=== PATIENT | male | born 1955 | race Caucasian/White ===

== ENCOUNTER 2019-04-11 10:05 | Observation (INO) | payer OTHER ==
[~2019-04-11] VITALS: Ht 177.8 cm; Wt 87.4 kg
[2019-04-11] MEDS ORDERED: LEVETIRACETAM 1000 MG (PMX) 100 ML IVPB STA (10:18)
[2019-04-11] MEDS ORDERED: ONDANSETRON 4 MG INJ IV STA (10:58)
[2019-04-11] MEDS ORDERED: LACTULOSE 30ML CUP PO ONE (11:30)
[2019-04-11] MEDS ORDERED: DEXAMETHASONE 10 MG/ML 1 ML INJ IM ONE (11:30)
[2019-04-11] MEDS ORDERED: TRAM50TA2 PO (11:33)
[2019-04-11] MEDS ORDERED: SITA1TAB5 ORAL (11:33)
[2019-04-11] MEDS ORDERED: FOLI-49 ORAL (11:33)
[2019-04-11] MEDS ORDERED: LACT10SO5 PO (11:33)
[2019-04-11] MEDS ORDERED: FURO40TA4 ORAL (11:33)
[2019-04-11] MEDS ORDERED: SPIR100T4 ORAL (11:33)
--- NOTE | 2019-04-11 11:36 | ERD ---
ER Documentation Chief Complaint Chief Complaint SEIZURE. NO HISTORY. LIVER CIRRHOSIS HPI This is a 64-year-old male with a history of hypertension and liver cirrhosis who presents to the emergency room for evaluation of seizures. A detailed history is unobtainable from the patient given his altered mental status and postictal state. History is obtained from EMS and the patient's was at bedside who states that this patient did suffer a seizure that lasted approximately 20 seconds. The patient has not had a fever at home, has not had any nausea or vomiting prior to the seizure and was not complaining of any headaches. Further history is unobtainable. ROS All systems reviewed and are negative except as per history of present illness. PMhx/Soc History of Surgery: No Anesthesia Reaction: No Hx Neurological Disorder: No Hx Respiratory Disorders: No Hx Cardiac Disorders: Yes (htn) Hx Psychiatric Problems: No Hx Miscellaneous Medical Probl: Yes (liver cirrhosis) Hx Alcohol Use: No (unknown) Hx Substance Use: No (unknown) Hx Tobacco Use: No (unknown) Smoking Status: Unknown if ever smoked Physical Exam Vitals Vital Signs Date Temp Pulse Resp B/P (MAP) Pulse Ox O2 O2 Flow FiO2 Time Delivery Rate 04/11/19 75 14 111/62 96 Nasal 4.0 11:05 (78) Cannula 04/11/19 Nasal 2 10:35 Cannula 04/11/19 97.2 94 18 124/67 96 10:12 (86) Physical Exam INITIAL VITAL SIGNS: Reviewed by me GENERAL: The patient is pale appearing elderly male, postictal HEENT: Small superficial laceration on the upper inner lip, and abrasion on the right side of the tongue, pupils equal, round, and reactive to light. EOMI. There is no scleral icterus. NECK: C-spine is soft and supple, there is no meningismus. There is no cervical lymphadenopathy. LUNGS: Clear to auscultation bilaterally. There are no rales, wheezes or rhonchi. HEART: Regular rate and rhythm, no murmurs, clicks, rubs or gallops. ABDOMEN: Soft, non-tender, non-distended. There are bowel sounds in all four quadrants. No rebound or guarding. EXTREMITIES: There is no peripheral cyanosis or edema. No focal swelling or erythema. NEUROLOGICAL: Post ictal, the patient moves all four extremities with 5/5 strength. Cranial nerves II - XII are intact. Normal gait. Alert and oriented to person only SKIN: Telangiectasias on skin, there is no apparent rash or petechiae. HEME/LYMPHATIC: There is no evidence of excessive bruising or lymphedema. PSYCHIATRIC: The patient does not appear anxious or depressed. Result Diagram: 04/11/19 1021 04/11/19 1021 Results 24 hrs Laboratory Tests Test 04/11/19 10:18 04/11/19 10:21 04/11/19 10:22 POC Venous Lactate 10.0 mmol/L White Blood Count 5.0 10^3/ul Red Blood Count 4.15 10^6/ul Hemoglobin 13.5 g/dl Hematocrit 40.8 % Mean Corpuscular Volume 98.3 fl Mean Corpuscular Hemoglobin 32.5 pg Mean Corpuscular 33.1 g/dl Hemoglobin Concent Red Cell Distribution Width 13.5 % Platelet Count 58 10^3/UL Mean Platelet Volume 13.1 fl Immature Granulocytes % 0.600 % Neutrophils % 64.9 % Lymphocytes % 21.6 % Monocytes % 11.5 % Eosinophils % 1.0 % Basophils % 0.4 % Nucleated Red Blood Cells % 0.0 /100WBC Immature Granulocytes # 0.030 10^3/ul Neutrophils # 3.2 10^3/ul Lymphocytes # 1.1 10^3/ul Monocytes # 0.6 10^3/ul Eosinophils # 0.1 10^3/ul Basophils # 0.0 10^3/ul Nucleated Red Blood Cells # 0.0 10^3/ul Prothrombin Time 14.8 Sec Prothrombin Time Ratio 1.2 INR International Normalized Ratio 1.15 Activated Partial Thromboplast 35.2 Sec Time Sodium Level 142 mmol/L Potassium Level 3.6 mmol/L Chloride Level 103 mmol/L Carbon Dioxide Level 17 mmol/L Anion Gap 22 Blood Urea Nitrogen 24 mg/dl Creatinine 1.14 mg/dl Est Glomerular Filtrat Rate mL/min > 60 mL/min Glucose Level 138 mg/dl Calcium Level 8.3 mg/dl Total Bilirubin 1.3 mg/dl Direct Bilirubin 0.00 mg/dl Indirect Bilirubin 1.3 mg/dl Aspartate Amino Transf (AST/SGOT) 53 IU/L Alanine 24 IU/L Aminotransferase (ALT/SGPT) Alkaline Phosphatase 126 IU/L Troponin I < 0.012 ng/ml Total Protein 8.4 g/dl Albumin 3.5 g/dl Globulin 4.90 g/dl Albumin/Globulin Ratio 0.71 Salicylates Level < 1.0 mg/dl Acetaminophen Level < 10.0 ug/ml Ethyl Alcohol Level < 10.0 mg/dl Magnesium Level 2.1 mg/dl Ammonia 280 umol/l Current Medications Medications Dose Sig/Karel Start Time Status Last (Trade) Ordered Route PRN Stop Time Admin Dose Reason Admin 100 ml @ ONCE STAT 04/11/19 DC 04/11/19 Levetiracetam 400 mls/hr IVPB 10:18 10:33 04/11/19 10:32 Ondansetron 4 mg ONCE STAT 04/11/19 DC 04/11/19 HCl (Zofran IV 10:58 11:05 Inj) 04/11/19 10:59 10 mg ONCE ONCE 04/11/19 Dexamethasone IM 11:30 (Decadron) 04/11/19 11:31 Procedures/MDM CT brain without: 2.8 cm noncalcified solid mass in the anteromedial base left frontal lobe with surrounding white matter edema. This most likely represents a meningioma, however, other etiologies cannot be ruled out. Correlation with pre and post contrast MRI of the brain is strongly recommended for more definitive diagnosis. Chest X-ray 1V Interpreted by me: Soft Tissue: No acute abnormalities Bones: No acute abnormalities Mediastinum/Cardiac Silhouette/Lungs: [No acute abnormalities] EKG: Rate/Rhythm: [Normal Sinus Rhythm] QRS, ST, T-waves: [Nonspecific ST and T wave abnormalities in the anterior leads, no ST elevation, prolonged QT ] Impression: [Nonspecific ST and T wave abnormalities in the anterior leads, no ST elevation, prolonged QT ] This 64-year-old male presents to the ER for evaluation of altered mental status. The patient does have a history of liver cirrhosis and according to EMS he did have a seizure. There is no history of prior seizures in this patient and according to the he is not on any antiseizure medications. On my exam the patient does appear postictal and does have multiple abrasions on the upper lip from where he bit his tongue likely from a seizure. Given the fact that it was the patient's first seizure I did obtain a CT of the brain and CT does demonstrate what appears to be a mass in the left frontal lobe with mild vasogenic edema. The patient also has an elevated ammonia level of greater than 280. The patient is protecting his airway, he is becoming more responsive and is returning more to his baseline. Given this patient's age, new diagnosis of intracranial mass with edema and elevated ammonia level he will need to be admitted and is not stable for transfer. The patient will be admitted to Dr. Ragland. I have reviewed the case with him and he states he will contact neurosurgery. The patient will be placed on the telemetry floor and was given Decadron in the ER, and was also given Keppra for seizure prophylaxis, and lactulose. Critical Care: Excluding all billable procedures Time: 59 minutes Treatments/Evaluations: Close monitoring and treatment of unstable vital signs, cardiorespiratory, and neurologic status, while maintaining tight balance of fluid, respiratory, and cardiac interventions. Departure Diagnosis: Primary Impression: Intracerebral mass Additional Impressions: Vasogenic edema Hepatic encephalopathy Hyperammonemia Seizure disorder Condition: Serious EARL HART DO April 11, 2019 11:36
[2019-04-11] MEDS ORDERED: ACETAMINOPHEN 325 MG TAB PO PRN ×2 (12:00→14:30)
[2019-04-11] MEDS ORDERED: ONDANSETRON 4 MG INJ IV PRN ×2 (12:00→14:30)
[2019-04-11 14:00] VITALS: Ht 177.8 cm; Wt 87.4 kg
[2019-04-11 14:20] VITALS: BP 108/61; PULSE 65; RESP 18
[2019-04-11] MEDS ORDERED: ZOLPIDEM 5 MG TAB PO PRN (14:30)
[2019-04-11] MEDS ORDERED: traMADol 50 MG TAB PO PRN (15:00)
[2019-04-11] MEDS: DEXAMETHASONE 4 MG/ML 1 ML INJ IV SCH ×2 (15:54→17:10)
[2019-04-11] MEDS: SPIRONOLACTONE 50 MG TAB PO SCH (15:54)
[2019-04-11] MEDS: LACTULOSE 30ML CUP PO SCH ×2 (15:55→17:10)
[2019-04-11] MEDS: FUROSEMIDE 40 MG TAB PO SCH (15:55)
[2019-04-11 15:58] VITALS: BP 107/59; PULSE 70; RESP 18
[2019-04-11 16:16] VITALS: PULSE 69
[2019-04-11] MEDS: PANTOPRAZOLE 40 MG INJ IV SCH (17:11)
[2019-04-11] MEDS ORDERED: DEXAMETHASONE 4 MG/ML 1 ML INJ IV SCH (18:00)
--- NOTE | 2019-04-11 19:15 | HP ---
DATE OF ADMISSION: 04/11/2019 REASON FOR VISIT: New onset seizure. HISTORY OF PRESENT ILLNESS: This is a 64-year-old male with a history of hypertension, liver cirrhos is, and type 2 diabetes mellitus who presented to the emergency room with complaint new onset tonic c lonic seizure. The patient was in usual state of health when the noted a seizure activity about 9:30 in the morning. There was blood noted around the mouth. The patient had no further seizures i n the emergency room. He had no history of alcohol abuse and was diagnosed with cirrhosis about 4 ye ars prior to admission due to unknown infection. Platelet count was low at 58,000. Serum ammonia wa s elevated at 280. CAT scan of brain showed a 2.8 cm noncalcified mass in the anteromedial base left frontal lobe with surrounding white matter or edema. This most likely represents a meningioma. PAST MEDICAL HISTORY: 1. Hypertension. 2. Type 2 diabetes mellitus. 3. Iatrogenic cirrhosis of the liver. MEDICATIONS PRIOR TO ADMISSION: 1. Spironolactone 200 mg daily. 2. Tramadol 50 mg every 8 hours as needed. 3. Lasix 80 mg daily. 4. Lactulose 10 gram b.i.d. 5. Janumet one tablet daily. 6. Folic acid 1 tablet daily. SOCIAL HISTORY: The patient is Romansh. He lives at home with his . He denies tobacco or alco hol use. PHYSICAL EXAMINATION: GENERAL: Well-developed, well-nourished male who is in no apparent distress. He denies any headache . VITAL SIGNS: Stable. He is afebrile. HEENT: Extraocular muscles intact. Pupils are equal and reactive to light bilaterally. Sclerae are anicteric. Oropharynx is moist. NECK: Supple, no JVD, no carotid bruits. LUNGS: Clear to auscultation bilaterally. CARDIAC: Regular rate and rhythm. No murmurs or gallops. ABDOMEN: Soft, mildly distended, obese. Normoactive bowel sounds. EXTREMITIES: No clubbing, cyanosis, or edema. NEUROLOGICAL: Grossly nonfocal. LABORATORY DATA: BMP is within normal limits. Initial lactate was 10 and repeat lactate was 2.2. A lbumin is 3.5. White blood cell count 5000, hemoglobin 13.5, and platelet count 58,000 as previously noted. ASSESSMENT: 1. A 64-year-old male with new onset tonic-clonic seizure. 2. Noncalcified frontal lobe mass most consistent with meningioma. 3. Hypertension. 4. History of iatrogenic cirrhosis. 5. Type 2 diabetes mellitus. PLAN: 1. Place in tele observation. 2. IV Keppra. 3. IV Decadron. 4. MRI of the brain with and without contrast with stereotypical protocol. 5. Seizure precautions. 6. Neurosurgical and Neurology consultations were requested. 7. Increase lactulose to 20 grams 4 times daily. Dictated By: PHUONG MCCALL/NTS Conf#: [id number] DID#: [id number] CC: DANNI PIERCE MD; LOPEZ ABRAHAM;*End*
[2019-04-11 20:00] VITALS: PULSE 74
[2019-04-11 20:14] VITALS: BP 124/70; PULSE 77; RESP 20
[2019-04-11] MEDS: LEVETIRACETAM 1000 MG (PMX) 100 ML IVPB SCH (20:59)
[2019-04-12] VITALS (8 sets, daily range): BP systolic 92–102; BP diastolic 50–60; PULSE 58–79; RESP 18–20
[2019-04-12] MEDS: DEXAMETHASONE 4 MG/ML 1 ML INJ IV SCH ×3 (00:38→13:28)
[2019-04-12] MEDS: LACTULOSE 30ML CUP PO SCH ×3 (00:38→13:28)
[2019-04-12] MEDS: FUROSEMIDE 40 MG TAB PO SCH (05:56)
[2019-04-12] MEDS: PANTOPRAZOLE 40 MG INJ IV SCH (06:01)
[2019-04-12] MEDS: SPIRONOLACTONE 50 MG TAB PO SCH (06:02)
--- NOTE | 2019-04-12 07:21 | CONS ---
Assessment/Plan Assessment/Plan Hospital Course 64 M c/ cirrhosis and other comorbidities, who presents for evaluation following a seizure, his reported first of life.. Ammonia 280 on presentation, a possible contributor.. Head CT showed a frontal mass w/ mass some effect...which is an additional likely contributor.. P: Neurosurgery follow up MRI brain w/ and w/o contrast for further characterization Agree w/ Keppra for seizure management; decrease to 500mg bid.. PT eval Other management per primary Will follow Consultation Date/Type/Reason Admit Date/Time April 11, 2019 at 11:58 Type of Consult Neurology Reason for Consultation seizure Requesting Provider: PHUONG GARCIA MD Date/Time of Note DATE: 04/12/19 TIME: 07:21 Hx of Present Illness Patient is a limited historian. He notes dizziness with standing...bu otherwise feels well. It is otherwise noted: This is a 64-year-old male with a history of hypertension, liver cirrhosis, and type 2 diabetes mellitus who presented to the emergency room with complaint new onset tonic clonic seizure. The patient was in usual state of health when the noted a seizure activity about 9:30 in the morning. There was blood noted around the mouth. The patient had no further seizures in the emergency room. He had no history of alcohol abuse and was diagnosed with cirrhosis about 4 years prior to admission due to unknown infection. Platelet count was low at 58,000. Serum ammonia was elevated at 280. CAT scan of brain showed a 2.8 cm noncalcified mass in the anteromedial base left frontal lobe with surrounding white matter or edema. This most likely represents a meningioma. ow neg Exam/Review of Systems Exam Vitals Vital Signs Date Temp Pulse Resp B/P (MAP) Pulse Ox O2 O2 Flow FiO2 Time Delivery Rate 04/12/19 97.5 68 20 92/50 (64) 94 05:55 04/11/19 Nasal 2.0 20:00 Cannula Intake and Output 04/11/19 04/11/19 04/12/19 1515:00 23:00 07:00 IntakeIntake Total 640 ml BalanceBalance 640 ml Exam PE: Gen Appearance: No Apparent Distress HEENT: Normocephalic Cardiovascular: Regular rate Lungs: Clear bilaterally Abdomen: Soft Extremities: Dry NE: The patient was alert and oriented. Language was normal. Fund of knowledge was normal. Pupils were equal and reactive to light. There was no afferent pupillary defect. Visual cherry were normal. Funduscopic examination was limited. Extra-ocular movements were full. Ptosis was absent. There was no nystagmus. Facial sensation was normal. Face was symmetric with normal strength. Hearing was intact. Palate movements were normal. Neck strength was normal. There was normal tongue bulk and speed of movement. Tone was normal. Muscle bulk was normal. I did not see fasciculations. Arms and legs were strong. Vibration sensation was normal. Temperature and pinprick sensation was normal. Rapid alternating movements were normal. There was no dysmetria. There was no intention tremor. Gait was deferred due to bedrest. Arm and leg reflexes were 2+ and symmetric. Cotton's sign was absent. Plantar responses were flexor. Results Result Diagram: 04/12/19 0555 04/11/19 1021 Results 24hrs Laboratory Tests Test 04/11/19 10:18 04/11/19 10:21 04/11/19 10:22 04/11/19 13:41 POC Venous Lactate 10.0 *H 2.2 *H White Blood Count 5.0 Red Blood Count 4.15 L Hemoglobin 13.5 L Hematocrit 40.8 L Mean Corpuscular 98.3 Volume Mean Corpuscular 32.5 Hemoglobin Mean Corpuscular 33.1 Hemoglobin Concent Red Cell 13.5 Distribution Width Platelet Count 58 L Mean Platelet Volume 13.1 H Immature 0.600 H Granulocytes % Neutrophils % 64.9 Lymphocytes % 21.6 Monocytes % 11.5 H Eosinophils % 1.0 Basophils % 0.4 Nucleated Red Blood 0.0 Cells % Immature 0.030 Granulocytes # Neutrophils # 3.2 Lymphocytes # 1.1 Monocytes # 0.6 Eosinophils # 0.1 Basophils # 0.0 Nucleated Red Blood 0.0 Cells # Prothrombin Time 14.8 Prothrombin Time 1.2 Ratio INR International 1.15 Normalized Ratio Activated 35.2 H Partial Thromboplast Time Sodium Level 142 Potassium Level 3.6 Chloride Level 103 Carbon Dioxide Level 17 L Anion Gap 22 H Blood Urea Nitrogen 24 H Creatinine 1.14 Est Glomerular > 60 Filtrat Rate mL/min Glucose Level 138 Calcium Level 8.3 L Total Bilirubin 1.3 Direct Bilirubin 0.00 Indirect Bilirubin 1.3 H Aspartate Amino 53 H Transf (AST/SGOT) Alanine 24 Aminotransferase (AL T/SGPT) Alkaline Phosphatase 126 H Troponin I < 0.012 Total Protein 8.4 H Albumin 3.5 Globulin 4.90 H Albumin/Globulin 0.71 Ratio Salicylates Level < 1.0 L Acetaminophen Level < 10.0 L Ethyl Alcohol Level < 10.0 H Magnesium Level 2.1 Ammonia 280 H Test 04/11/19 15:55 04/11/19 19:29 04/12/19 05:55 Lactic Acid Level 3.3 *H 4.6 *H White Blood Count 7.5 # Red Blood Count 3.58 L Hemoglobin 11.8 L Hematocrit 33.7 L Mean Corpuscular 94.1 Volume Mean Corpuscular 33.0 Hemoglobin Mean Corpuscular 35.0 Hemoglobin Concent Red Cell 12.6 Distribution Width Platelet Count 55 L Mean Platelet Volume 12.8 H Immature 0.500 H Granulocytes % Neutrophils % 90.6 H Lymphocytes % 6.1 L Monocytes % 2.7 Eosinophils % 0.0 Basophils % 0.1 Nucleated Red Blood 0.0 Cells % Immature 0.040 H Granulocytes # Neutrophils # 6.8 Lymphocytes # 0.5 L Monocytes # 0.2 L Eosinophils # 0.0 Basophils # 0.0 Nucleated Red Blood 0.0 Cells # Medications Medication Current Medications Levetiracetam 100 ml @ 400 mls/hr Q12 IVPB Last administered on 04/11/19at 20:59; Admin Dose 400 MLS/HR; Start 04/11/19 at 20:00 Pantoprazole (Protonix Iv) 40 mg BID@06,18 IV Last administered on 04/12/19 06:01; Admin Dose 40 MG; Start 04/11/19 at 18:00 Lactulose (Enulose) 20 gm Q6 PO Last administered on 04/12/19 06:02; Admin Dose 20 GM; Start 04/11/19 at 14:30 Acetaminophen (Tylenol Tab) 650 mg Q6H PRN PO MILD PAIN(1-3)OR ELEVATED TEMP; Start 04/11/19 at 14:30 Dexamethasone (Decadron) 4 mg Q6 IV Last administered on 04/12/19 06:02; Admin Dose 4 MG; Start 04/11/19 at 14:30 Zolpidem Tartrate (Ambien) 5 mg HS MAY REPEAT X 1 PRN PO INSOMNIA; Start 04/11/19 at 14:30 Ondansetron HCl (Zofran Inj) 4 mg Q4H PRN IV NAUSEA AND/OR VOMITING; Start 04/11/19 at 14:30 Furosemide (Lasix) 80 mg DAILY@0600 PO Last administered on 04/11/19at 15:55; Admin Dose 80 MG; Start 04/11/19 at 15:00 Spironolactone (Aldactone) 200 mg DAILY@0600 PO Last administered on 04/12/19at 06:02; Admin Dose 200 MG; Start 04/11/19 at 15:00 Tramadol HCl (Ultram) 50 mg Q8H PRN PO PAIN LEVEL 4-7; Start 04/11/19 at 15:00 Past Medical History reviewed Home Meds Active Scripts Levetiracetam* (Keppra*) 1,000 Mg Tablet, 1000 MG PO BID for 30 Days, TAB 3 Refills Prov:PHUONG GARCIA MD 04/12/19 Pantoprazole* (Protonix*) 40 Mg Tablet.dr, 40 MG PO DAILY for 30 Days, TAB Prov:PHUONG GARCIA MD 04/12/19 Dexamethasone* (Dexamethasone*) 4 Mg Tablet, 4 MG PO Q8 for 15 Days, TAB 4 mg every 8 hours x3 days then every 12 hours x3 days then 2 mg every 8 hours x3 days then 2 mg every 12 hours x3 days then 2 mg daily x3 days. Prov:PHUONG GARCIA MD 04/12/19 Lactulose* (Lactulose*) 20 Gm/30 Ml Solution, 20 GM PO TID for 30 Days Prov:PHUONG GARCIA MD 04/12/19 Reported Medications Furosemide* (Furosemide*) 40 Mg Tablet, 80 MG ORAL DAILY 04/11/19 Tramadol HCl (Tramadol HCl) 50 Mg Tablet, 50 MG PO Q8H PRN for PAIN LEVEL 4-7, #120 TAB 04/11/19 Sitagliptin Phos/Metformin HCl (Janumet 50-1,000 mg Tablet) 1 Each Tablet, 1 TAB ORAL DAILY 04/11/19 Spironolactone* (Spironolactone*) 100 Mg Tablet, 200 TAB ORAL DAILY 04/11/19 Folic Acid* (Folic Acid*) 1 Mg Tablet, 1 TAB ORAL DAILY 04/11/19 Discontinued Reported Medications Lactulose* (Lactulose*) 10 Gm/15 Ml Solution, 10 GM PO BID, ML 04/11/19 Medications Current Medications Levetiracetam 100 ml @ 400 mls/hr Q12 IVPB Last administered on 04/11/19at 20:59; Admin Dose 400 MLS/HR; Start 04/11/19 at 20:00 Pantoprazole (Protonix Iv) 40 mg BID@06,18 IV Last administered on 04/12/19 06:01; Admin Dose 40 MG; Start 04/11/19 at 18:00 Lactulose (Enulose) 20 gm Q6 PO Last administered on 04/12/19 06:02; Admin Dose 20 GM; Start 04/11/19 at 14:30 Acetaminophen (Tylenol Tab) 650 mg Q6H PRN PO MILD PAIN(1-3)OR ELEVATED TEMP; Start 04/11/19 at 14:30 Dexamethasone (Decadron) 4 mg Q6 IV Last administered on 04/12/19 06:02; Admin Dose 4 MG; Start 04/11/19 at 14:30 Zolpidem Tartrate (Ambien) 5 mg HS MAY REPEAT X 1 PRN PO INSOMNIA; Start 04/11/19 at 14:30 Ondansetron HCl (Zofran Inj) 4 mg Q4H PRN IV NAUSEA AND/OR VOMITING; Start 04/11/19 at 14:30 Furosemide (Lasix) 80 mg DAILY@0600 PO Last administered on 04/11/19at 15:55; Admin Dose 80 MG; Start 04/11/19 at 15:00 Spironolactone (Aldactone) 200 mg DAILY@0600 PO Last administered on 04/12/19at 06:02; Admin Dose 200 MG; Start 04/11/19 at 15:00 Tramadol HCl (Ultram) 50 mg Q8H PRN PO PAIN LEVEL 4-7; Start 04/11/19 at 15:00 Allergies: Coded Allergies: No Known Allergy (Unverified , 04/11/19) Social History Smoking Status: Never smoker LOPEZ ABRAHAM April 12, 2019 07:21
--- NOTE | 2019-04-12 07:34 | EEG ---
EEG NOTE Report Details DATE OF TEST: 04/12/19 HISTORY: The patient is a 64-year-old M who presents following a generalized convulsion. This EEG is requested to evaluate for an epileptic disorder. SEDATION: None. CONDITIONS OF RECORDING: This EEG was recorded digitally on the [email or web address] machine, using the International 10-20 System of electrodes plus anterior temporals and [place]. STATES SAMPLED: Lethargic. FINDINGS: The background is continuous and symmetric...predominated by polymorphic theta activity. During wakefulness, a well-formed posterior dominant rhythm is absent. The normal [id number] frequency-amplitude gradient was absent. Photic stimulation does not elicit any definite driving responses or epile ptiform discharges. Hyperventilation was not performed. The patient became drowsy but did not pass into sleep. No asymmetries, focal abnormalities or epileptiform discharges were seen. IMPRESSION: Abnormal electroencephalogram due to: diffuse slowing. COMMENT: The slowing of the background indicates diffuse cortical dysfunction of nonspecific etiology. LOPEZ ABRAHAM April 12, 2019 07:34
[2019-04-12] MEDS: LEVETIRACETAM 1000 MG (PMX) 100 ML IVPB SCH (09:05)
[2019-04-12] MEDS ORDERED: DEXA4TAB PO (09:27)
[2019-04-12] MEDS ORDERED: PANT40TA3 PO (09:27)
[2019-04-12] MEDS ORDERED: LACT20SO2 PO (09:27)
[2019-04-12] MEDS ORDERED: LEVE100018 PO (09:30)
--- NOTE | 2019-04-12 09:31 | PDOCDIS ---
Discharge Instructions CONDITION [id number] Patient Condition: [id number] Good HOME CARE INSTRUCTIONS: [id number] Diet Instructions: [id number] Activity Restrictions: [id number] Slowly Increase Activity FOLLOW UP/APPOINTMENTS Follow-up Plan pcp [address] Canela 3-[address] Caceres 2 weeks PHUONG GARCIA MD April 12, 2019 09:31
[2019-04-12] MEDS ORDERED: oxyCODONE (CR) 10 MG TAB [oxyCONTIN] PO ONE (11:00)
--- NOTE | 2019-04-12 11:56 | RADRPT ---
Vent Rate: 92 bpm RR Interval: 0 msec AK Interval: 186 msec QRS Duration: 100 msec QT Interval: 410 msec QTC Interval: 507 msec P-R-T [place]: 46 - -31 - 21 degrees Normal sinus rhythm Left axis deviation Moderate voltage criteria for LVH, may be normal variant Nonspecific ST and T wave abnormality Prolonged QT Abnormal ECG Electronically Signed By: *[facility]
--- NOTE | 2019-04-12 17:08 | DS ---
DATE OF ADMISSION: 04/11/2019 DATE OF DISCHARGE: 04/12/2019 DISCHARGE DIAGNOSES: 1. A 64-year-old male with seizure disorder. 2. 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 3. Hypertension. 4. History of idiopathic cirrhosis. 5. Thrombocytopenia. 6. Type 2 diabetes mellitus. PROCEDURES DURING HOSPITALIZATION: CAT scan of brain, MRI of brain and EEG. HOSPITAL COURSE: A 64-year-old male with history of hypertension, idiopathic liver cirrhosis and typ e 2 diabetes mellitus, who presented to the emergency room with new onset tonic-clonic seizure. The patient denies any headache. There was no focal numbness or weakness. CAT scan of the brain showed a noncalcified 2.8 cm solid mass in the anterior medial base of the left frontal lobe with surroundin g white matter edema. According to his daughter, they knew about the mass about 1 year prior to admi ssion. The patient was seen in consultation by neurosurgeon, Dr. Canela and neurologist, Dr. Caceres. MRI of t he brain with and without contrast with stereotypical protocol was ordered. The study showed a left frontal convexity extraaxial mass consistent with meningioma and associated with mass effect and vaso genic edema. The patient remained asymptomatic during that hospitalization. IV Keppra was initiated . The patient denies any history of heavy alcohol abuse in the past. He is in stable condition for discharge. Dr. Canela and I had a long discussion with his daughter. He will be followed up by PCP, neurology and neurosurgery as outpatient. Physical exam was unremarkable at the time of discharge. MEDICATIONS ON DISCHARGE: Included the followin. Aldactone 25 mg p.o. daily. 2. Lasix 80 mg p.o. daily. 3. Keppra 1000 mg p.o. b.i.d. 4. Tramadol 50 mg every 8 hours as needed. 5. Lactulose 20 grams p.o. t.i.d. 6. Protonix 40 mg p.o. daily. 7. Decadron 4 mg p.o. every 8 hours with taper. 8. Janumet one tablet daily. 9. Folic acid 1 mg daily. FOLLOWUP: 1. Follow up with PCP in 1 week. 2. Follow up with Dr. Caceres in 2 weeks. 3. Follow up with Dr. Ej Canela in 3 to 4 weeks. Dictated By: PHUONG MCCALL/RC Conf#: [id number] DID#: [id number] CC: EJ CANELA MD; LOPEZ CACERES;*EndCC*
--- NOTE | 2019-04-13 16:06 | CONS ---
Assessment/Plan Assessment/Plan Assessment/Plan (Daily) Date of consultation: 04/12/2019 Requesting physician:Dr. Noé Aguero Consulting service: Neurosurgery This is a 64-year-old male found to have a new onset generalized seizure and subsequently brought to the emergency room yesterday. As part of his workup he was found to have an extra-axial left frontal mass and neurosurgery was consulted subsequently. The patient has not had any seizures since being admitt ed to the hospital. He was started on Keppra, Decadron and an EEG was performed that did not show any further epileptic activity. The patient himself is Tunisian speaking only. However, Dr. Aguero (who was also at bedside during my examination) and I have been able to communicate with the patient with the help of his daughter (who is bilingual) on the phone. It turns out that the patient and his family have known about his left frontal tumor for at least one year and he has apparently been evaluated by a neurosurgeon before who indicated that the patient did not require an operation at that time. The patient at this time denies any anosmia or change in his taste. He denies decreased vision, blurriness of his vision or diplopia. The patient has not had any other seizures until the generalized seizure that he had just prior to presenting to the emergency department. He denies any decreased balance, gait ataxia, weakness or numbness of his upper or lower extremities. The patient was told that he has liver cirrhosis although the etiology has not been determined according to the patient or his daughter. The patient drinks alcohol only occasionally and denies history of hepatitis although he was told that he had an infection of his liver of unknown type etiology. Past medical history: Diabetes, hypertension Allergies:No known drug allergies Review of systems: Denies chest pain, shortness of breath or heartburn. Please see above for pertinent positives and negative. Family history: Denies history of brain tumors, seizures. Social history: Denies use of tobacco, alcohol, illicit or recreational drugs. Physical examination: This is a elderly male sitting up in bed next to his nurse. He is in no apparent distress. Patient is awake alert and oriented to person, place, the year and the month. Language is fluent in Tunisian. The patient does not speak Belarusian but Dr. Aguero and I are able to communicate with the patient with the help of his daughter who is bilingual and is on the phone. Face is symmetric. Extraocular movements are grossly normal. Pupils are equally round and reactive to light bilaterally. Tongue is midline. Facial sensation to light touch is grossly intact. Palate elevation is symmetric. Shoulder shrugs are symmetric. Muscle bulk and tone is normal bilateral upper and lower extremities. Deep tendon reflexes are 1+ bilateral upper and lower extremities. Sensation to light touch is grossly normal bilateral upper and lower extremities. Motor strength is 5 out of 5 bilateral upper and lower extremities. There is no Junior sign present bilaterally. There is no dysdiadochokinesia bilaterally. There is no dysmetria bilaterally. Toes are downgoing bilaterally. There is no pronator drift. The patient is able to take a few steps without difficulty. Imaging: CT of head without contrast, MRI of brain with and without contrast: There is no evidence of a skull fracture, hydrocephalus or intracranial hematoma. 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 The mass does not extend posteriorly to the optic chiasm. The basal cisterns are open. Assessment/plan: I have reviewed the above imaging studies on the patient's clinical findings in detail with the patient, his daughter who has been on the phone during the entire examination and the patient's hospitalist, Dr. Aguero (who has been at bedside). 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 The patient does not currently have any focal neurologic deficit. In general, the first and foremost priority should be given to the treatment of the patient's seizure. The patient has already been started on Keppra, neurology has been consulted and an EEG performed. I would not recommend neurosurgical intervention i.e. resection of the mass in the acute setting especially given the patient's significant thrombocytopenia that is likely related to his liver cirrhosis of unknown etiology. Meningiomas can be quite vascular and significant thrombocytopenia can further increase risk of heavy bleeding that can potentially become life-threatening intra-operatively and postoperatively. Furthermore, the patient will require further workup including formal ophthalmology evaluation including visual field testing that could be done on an outpatient basis. From a neurosurgical perspective, the patient may be discharged as long as he has no further seizures and appropriate discharge antiepileptic drug regimen has been set up by neurology. I would like the patient to follow-up with me in clinic in the next 3-4 weeks for further evaluation and after he has had a form al ophthalmologic evaluation. The Decadron can be tapered to off over the next 1-1/2-2 weeks. The patient and his daughter fully understand the above discussion. Dr. Aguero also agrees with the above plan. DANNI PIERCE MD April 13, 2019 16:06
== END 2019-04-12 15:20 | disposition home or self-care (01) ==
LOC: E/R 10:05 → INTOOBSV 11:58 → TEL 11:58
PROVIDERS: ADMIT Internal Medicine; ATTEND Internal Medicine
DX: G40.909 Epilepsy, unspecified, not intractable, without status epilepticus (principal); G93.9 Disorder of brain, unspecified; I10 Essential (primary) hypertension; K74.60 Unspecified cirrhosis of liver; D69.6 Thrombocytopenia, unspecified; E11.9 Type 2 diabetes mellitus without complications
CPT/HCPCS: 36415; 70450; 70553; 71045; 80053; 80307; 82140; 83605; 83735; 84484; 85025; 85610; 85730; 93005; 95819; 96372; 96374; 96375; C9113; J1100; J1953; J2405; Z7500; Z7502; Z7610; G0378

== ENCOUNTER 2019-04-25 11:43 | Inpatient (IN) | payer OTHER ==
[~2019-04-25] VITALS: Ht 177.8 cm; Wt 82.5 kg
[~2019-04-25 11:43] MED LIST: DEXA4TAB PO; FOLI-49 ORAL; FURO40TA4 ORAL; LACT20SO2 PO; LEVE100018 PO; PANT40TA3 PO; SITA1TAB5 ORAL; SPIR100T4 ORAL; TRAM50TA2 PO
[2019-04-25] MEDS ORDERED: LACTULOSE 30ML CUP PO STA (11:45)
[2019-04-25] MEDS ORDERED: HALOPERIDOL 5 MG INJ IM ONE ×2 (12:30→14:00)
[2019-04-25] MEDS ORDERED: LACTULOSE ENEMA 1,000 ML BTL PR ONE (13:30)
[2019-04-25] MEDS ORDERED: LORAZEPAM 2 MG INJ ONE (13:37)
[2019-04-25] MEDS ORDERED: LORAZEPAM 2 MG INJ IV ONE (14:00)
[2019-04-25] MEDS ORDERED: ACETAMINOPHEN 325 MG TAB PO PRN (14:00)
[2019-04-25] MEDS ORDERED: ONDANSETRON 4 MG INJ IV PRN ×2 (14:00→16:00)
[2019-04-25] MEDS ORDERED: LIDOCAINE 2% 20 ML UROJET SYRINGE MM ONE (15:00)
--- NOTE | 2019-04-25 15:15 | ERD ---
ER Documentation Chief Complaint Chief Complaint ALOC HPI Patient is a 64-year-old male with brain mass, cirrhosis, seizures, and coronary disease who presents altered. Please note the history and physical exam is limited secondary to patient's altered mental status at this time. The patient was brought in by ambulance. He came from home. He started with altered mental status last night. I cannot obtain history otherwise. ROS All systems reviewed and are negative except as per history of present illness. Medications Home Meds Active Scripts Levetiracetam* (Keppra*) 1,000 Mg Tablet, 1000 MG PO BID for 30 Days, TAB 3 Refills Prov:PHUONG GARCIA MD 04/12/19 Pantoprazole* (Protonix*) 40 Mg Tablet.dr, 40 MG PO DAILY for 30 Days, TAB Prov:PHUONG GARCIA MD 04/12/19 Dexamethasone* (Dexamethasone*) 4 Mg Tablet, 4 MG PO Q8 for 15 Days, TAB 4 mg every 8 hours x3 days then every 12 hours x3 days then 2 mg every 8 hours x3 days then 2 mg every 12 hours x3 days then 2 mg daily x3 days. Prov:PHUONG GARCIA MD 04/12/19 Lactulose* (Lactulose*) 20 Gm/30 Ml Solution, 20 GM PO TID for 30 Days Prov:PHUONG GARCIA MD 04/12/19 Reported Medications Furosemide* (Furosemide*) 40 Mg Tablet, 80 MG ORAL DAILY 04/11/19 Tramadol HCl (Tramadol HCl) 50 Mg Tablet, 50 MG PO Q8H PRN for PAIN LEVEL 4-7, #120 TAB 04/11/19 Sitagliptin Phos/Metformin HCl (Janumet 50-1,000 mg Tablet) 1 Each Tablet, 1 TAB ORAL DAILY 04/11/19 Spironolactone* (Spironolactone*) 100 Mg Tablet, 200 TAB ORAL DAILY 04/11/19 Folic Acid* (Folic Acid*) 1 Mg Tablet, 1 TAB ORAL DAILY 04/11/19 Allergies Allergies: Coded Allergies: No Known Allergy (Unverified , 04/11/19) PMhx/Soc History of Surgery: Yes (heart stent 2011) Anesthesia Reaction: No Hx Neurological Disorder: No Hx Respiratory Disorders: No Hx Cardiac Disorders: Yes (HTN) Hx Psychiatric Problems: No Hx Miscellaneous Medical Probl: Yes (liver cirrhosis) Hx Alcohol Use: No Hx Substance Use: No Hx Tobacco Use: No Smoking Status: Never smoker FmHx Unable to obtain Physical Exam Vitals Vital Signs Date Temp Pulse Resp B/P (MAP) Pulse Ox O2 O2 Flow FiO2 Time Delivery Rate 04/25/19 86 16 125/64 95 Room Air 15:06 (84) 04/25/19 98.2 62 18 124/73 100 14:08 (90) 04/25/19 98.2 62 18 123/71 100 14:08 (88) 04/25/19 62 18 123/71 96 Room Air 14:04 (88) 04/25/19 97.2 72 15 156/74 97 Room Air 13:26 (101) 04/25/19 97.2 73 14 135/80 97 13:00 (98) 04/25/19 97.2 78 14 135/100 97 12:30 (112) 04/25/19 96.5 74 14 158/78 98 12:06 (104) 04/25/19 Nasal 2 12:00 Cannula 04/25/19 96.8 68 15 128/87 97 11:45 (101) Physical Exam Const: No acute distress Head: Atraumatic Eyes: Normal Conjunctiva ENT: Normal External Ears, Nose and Mouth. Neck: Full range of motion. No meningismus. Resp: Clear to auscultation bilaterally Cardio: Regular rate and rhythm, no murmurs Abd: Soft, non tender, non distended. Normal bowel sounds Skin: No petechiae or rashes Back: No midline or flank tenderness Ext: No cyanosis, or edema Neur: Awake but altered Result Diagram: 04/25/19 1212 04/25/19 1212 Results 24 hrs Laboratory Tests Test 04/25/19 12:12 04/25/19 12:18 04/25/19 12:40 White Blood Count 14.8 10^3/ul Red Blood Count 4.81 10^6/ul Hemoglobin 15.5 g/dl Hematocrit 44.2 % Mean Corpuscular Volume 91.9 fl Mean Corpuscular Hemoglobin 32.2 pg Mean Corpuscular Hemoglobin Concent 35.1 g/dl Red Cell Distribution Width 12.6 % Platelet Count 56 10^3/UL Mean Platelet Volume 12.7 fl Immature Granulocytes % 0.900 % Neutrophils % 87.7 % Lymphocytes % 4.9 % Monocytes % 6.3 % Eosinophils % 0.0 % Basophils % 0.2 % Nucleated Red Blood Cells % 0.0 /100WBC Immature Granulocytes # 0.130 10^3/ul Neutrophils # 13.0 10^3/ul Lymphocytes # 0.7 10^3/ul Monocytes # 0.9 10^3/ul Eosinophils # 0.0 10^3/ul Basophils # 0.0 10^3/ul Nucleated Red Blood Cells # 0.0 10^3/ul Sodium Level 129 mmol/L Potassium Level 4.1 mmol/L Chloride Level 92 mmol/L Carbon Dioxide Level 25 mmol/L Anion Gap 12 Blood Urea Nitrogen 48 mg/dl Creatinine 0.78 mg/dl Est Glomerular Filtrat Rate mL/min > 60 mL/min Glucose Level 460 mg/dl Calcium Level 8.4 mg/dl Total Bilirubin 1.5 mg/dl Direct Bilirubin 0.00 mg/dl Indirect Bilirubin 1.5 mg/dl Aspartate Amino Transf (AST/SGOT) 36 IU/L Alanine Aminotransferase (ALT/SGPT) 63 IU/L Alkaline Phosphatase 110 IU/L Ammonia 175 umol/l Total Protein 7.5 g/dl Albumin 3.0 g/dl Globulin 4.50 g/dl Albumin/Globulin Ratio 0.66 Salicylates Level < 1.0 mg/dl Acetaminophen Level < 10.0 ug/ml Ethyl Alcohol Level < 10.0 mg/dl POC Venous Lactate 2.6 mmol/L Bedside Glucose 416 mg/dL Current Medications Medications Dose Sig/Karel Start Time Status Last (Trade) Ordered Route PRN Stop Time Admin Dose Reason Admin Lactulose 30 gm ONCE STAT 04/25/19 DC (Enulose) PO 11:45 04/25/19 11:46 Haloperidol 5 mg ONCE ONCE 04/25/19 DC 04/25/19 (Haldol) IM 12:30 04/25/19 12:27 12:31 Lactulose 100 ml ONCE ONCE 04/25/19 DC 04/25/19 (Lactulose [place] 13:30 04/25/19 13:54 Enema) 13:31 Haloperidol 5 mg ONCE ONCE 04/25/19 DC 04/25/19 (Haldol) IM 14:00 04/25/19 13:40 14:01 Lorazepam 1 mg ONCE ONCE 04/25/19 DC 04/25/19 (Ativan) IV 14:00 04/25/19 13:40 14:01 Lorazepam 2 mg STK-MED 04/25/19 DC (Ativan) ONCE .ROUTE 13:37 04/25/19 13:38 Ondansetron 4 mg BRIDGE ORDER 04/25/19 HCl (Zofran PRN IV 14:00 04/26/19 Inj) NAUSEA/VOMITI 13:59 NG 650 mg ER BRIDGE 04/25/19 Acetaminophen PRN PO 14:00 04/26/19 (Tylenol .MILD PAIN 13:59 Tab) 1-3 OR TEMP Lidocaine 20 ml ONCE ONCE 04/25/19 DC (Lidocaine MM 15:00 04/25/19 2% Urojet) 15:07 Lactulose 20 gm ONCE ONCE 04/25/19 04/25/19 (Enulose) NGT 15:30 04/25/19 15:11 15:31 Procedures/MDM Patient is a 64-year-old male with multiple comorbidities including cirrhosis who presents altered. He was found to have an elevated ammonia level of 175 which I believe is the cause of his altered mental status. The patient was given rectal lactulose. An NG tube was placed and then NG lactulose was given. I spoke with Dr. Brown as the patient has regal insurance and the patient will be admitted to the hospital. He is unstable for transfer currently as the patient needed 2 doses of Haldol as well as Ativan and restraints for his altered mental status. Departure Diagnosis: Primary Impression: Hyperammonemia Additional Impression: Altered level of consciousness Condition: KALEIGH Quick MD Apr 25, 2019 15:15
--- NOTE | 2019-04-25 15:22 | HP ---
Date/Time of Note Date/Time of Note DATE: 04/25/19 TIME: 15:09 Assessment/Plan VTE [place] [facility] [place] Pharmacological prophylaxis: NA/contraindicated Pharm contraindication: thrombocytopenia Lines/Catheters Central line still needed: No Urinary Cath still in place: No Assessment/Plan Assessment/Plan ASSESSMENT: 1. Mr. Gloria is a 64-year-old man who suffered a tonic-clonic seizure two weeks ago, and was diagnosed with an intracranial tumor during that admission -- a noncalcified frontal lobe mass most consistent with meningioma. 2. Presenting now with altered level of consciousness and severe hyperammonemia in the context of cirrhosis of unknown etiology 3. Hypertension 4. Thrombocytopenia, with severe bruising of the right hand 5. Type 2 diabetes mellitus, with severe hyperglycemia today PLAN: 1. Place in telemetry observation 2. Place nasogastric tube for administration of lactulose and rifaximin, in addition to his medications 3. Seizure precautions 4. Full code 5. Famotidine 20mg IV q12h for GI protection 6. SCDs for DVT prevention 7. HgbA1c, insulin coverage to bring down his blood sugars 8. IV saline support until he is able to take PO medications again 9. Consult neurology again 10. Disposition is home with his and daughter. Micki Brown MD PhD [facility] [phone] Result Diagram: 04/25/19 1212 04/25/19 1212 Results 24hrs Laboratory Tests Test 04/25/19 12:12 04/25/19 12:18 04/25/19 12:40 White Blood Count 14.8 #H Red Blood Count 4.81 # Hemoglobin 15.5 # Hematocrit 44.2 # Mean Corpuscular Volume 91.9 Mean Corpuscular Hemoglobin 32.2 Mean Corpuscular Hemoglobin Concent 35.1 Red Cell Distribution Width 12.6 Platelet Count 56 L Mean Platelet Volume 12.7 H Immature Granulocytes % 0.900 H Neutrophils % 87.7 H Lymphocytes % 4.9 L Monocytes % 6.3 Eosinophils % 0.0 Basophils % 0.2 Nucleated Red Blood Cells % 0.0 Immature Granulocytes # 0.130 H Neutrophils # 13.0 H Lymphocytes # 0.7 L Monocytes # 0.9 Eosinophils # 0.0 Basophils # 0.0 Nucleated Red Blood Cells # 0.0 Sodium Level 129 L Potassium Level 4.1 Chloride Level 92 L Carbon Dioxide Level 25 Anion Gap 12 Blood Urea Nitrogen 48 H Creatinine 0.78 Est Glomerular Filtrat Rate mL/min > 60 Glucose Level 460 *H Calcium Level 8.4 Total Bilirubin 1.5 H Direct Bilirubin 0.00 Indirect Bilirubin 1.5 H Aspartate Amino Transf (AST/SGOT) 36 Alanine Aminotransferase (ALT/SGPT) 63 Alkaline Phosphatase 110 Ammonia 175 H Total Protein 7.5 Albumin 3.0 L Globulin 4.50 H Albumin/Globulin Ratio 0.66 Salicylates Level < 1.0 L Acetaminophen Level < 10.0 L Ethyl Alcohol Level < 10.0 H POC Venous Lactate 2.6 *H Bedside Glucose 416 *H HPI/ROS Admit Date/Time Admit Date/Time 04/25/2019 Hx of Present Illness REASON FOR VISIT: Altered level of consciousness HISTORY OF PRESENT ILLNESS: Mr. Gloria is a 64-year-old man with a history of hypertension, liver cirrhosis, type 2 diabetes, and a newly-diagnosed brain tumor who presented to the emergency room this afternoon in a comatose state. He was doing well yesterday apart from decreased appetite, walking and able to feed himself. But he seemed more confused last night, and by this afternoon was not able to be awakened. Last month his called paramedics when she observed seizure activity about 9:30 in the morning, with blood noted around his mouth. He has no history of alcohol abuse, but was diagnosed with cirrhosis about 4 years prior to admission. Platelet count was low at 58,000 and serum ammonia elevated then at 280. CT scan of brain showed a 2.8 cm noncalcified mass in the anteromedial base left frontal lobe with surrounding white matter or edema. According to his daughter, they first knew about the mass about a year ago. The patient was seen in consultation by neurosurgeon, Dr. Ej Canela, and neurologist, Dr. Caceres. MRI of the brain with and without contrast showed a left frontal convex extra-axial mass consistent with meningioma and associated with mass effect and vasogenic edema. He had no headache, motor or sensory symptoms at that time, and remained asymptomatic during that hospitalization. Follow-up was planned with his PCP, neurologist and neurosurgeon as outpatient. PAST MEDICAL HISTORY: 1. Hypertension. 2. Type 2 diabetes mellitus. 3. Iatrogenic cirrhosis of the liver. Medications Home Meds Active Scripts Levetiracetam* (Keppra*) 1,000 Mg Tablet, 1000 MG PO BID for 30 Days, TAB 3 Refills Prov:PHUONG GARCIA MD 04/12/19 Pantoprazole* (Protonix*) 40 Mg Tablet.dr, 40 MG PO DAILY for 30 Days, TAB Prov:PHUONG GARCIA MD 04/12/19 Dexamethasone* (Dexamethasone*) 4 Mg Tablet, 4 MG PO Q8 for 15 Days, TAB 4 mg every 8 hours x3 days then every 12 hours x3 days then 2 mg every 8 hours x3 days then 2 mg every 12 hours x3 days then 2 mg daily x3 days. Prov:PHUONG GARCIA MD 04/12/19 Lactulose* (Lactulose*) 20 Gm/30 Ml Solution, 20 GM PO TID for 30 Days Prov:PHUONG GARCIA MD 04/12/19 Reported Medications Furosemide* (Furosemide*) 40 Mg Tablet, 80 MG ORAL DAILY 04/11/19 Tramadol HCl (Tramadol HCl) 50 Mg Tablet, 50 MG PO Q8H PRN for PAIN LEVEL 4-7, #120 TAB 04/11/19 Sitagliptin Phos/Metformin HCl (Janumet 50-1,000 mg Tablet) 1 Each Tablet, 1 TAB ORAL DAILY 04/11/19 Spironolactone* (Spironolactone*) 100 Mg Tablet, 200 TAB ORAL DAILY 04/11/19 Folic Acid* (Folic Acid*) 1 Mg Tablet, 1 TAB ORAL DAILY 04/11/19 Allergies Allergies: Coded Allergies: No Known Allergy (Unverified , 04/11/19) SOCIAL HISTORY: The patient is [place], and has not worked for about 8 years. He lives at home with his and daughter, who works herself in home care. No tobacco or alcohol use. ROS Unable to obtain, due to his poor LOC. But his daughter says he normal feeds himself, is conversant, and walks without falling. PMH/Family/Social Past Medical History Medications Current Medications Ondansetron HCl (Zofran Inj) 4 mg BRIDGE ORDER PRN IV NAUSEA/VOMITING; Start 04/25/19 at 14:00; Stop 04/26/19 at 13:59 Acetaminophen (Tylenol Tab) 650 mg ER BRIDGE PRN PO .MILD PAIN 1-3 OR TEMP; Start 04/25/19 at 14:00; Stop 04/26/19 at 13:59 Lactulose (Enulose) 20 gm ONCE ONCE NGT ; Start 04/25/19 at 15:30; Stop 04/25/19 at 15:31 Coded Allergies: No Known Allergy (Unverified , 04/11/19) Social History Smoking Status: Never smoker Exam/Review of Systems Vital Signs Vitals Vital Signs Date Temp Pulse Resp B/P (MAP) Pulse Ox O2 O2 Flow FiO2 Time Delivery Rate 04/25/19 86 16 125/64 95 Room Air 15:06 (84) 04/25/19 98.2 14:08 04/25/19 2 12:00 Exam Exam GENERAL: Well-developed, but mildly cachectic man who was unresponsive to voice or shaking HEENT: Supple neck, no JVD, no carotid bruits, no signs of head trauma LUNGS: Clear to auscultation bilaterally, apart from mild expiratory rhonchi CARDIAC: Regular rhythm, normal rate. No murmur. Good peripheral perfusion. ABDOMEN: Soft, mildly distended, obese. Normoactive bowel sounds. No rebound or guarding. EXTREMITIES: No clubbing or cyanosis. But he had severe clonus at the wrists bilaterally, with severe bruising and mild edema of the right wrist. NEUROLOGICAL: Comatose. Symmetric 1+ patellar DTR. Equivocal Babinski reflexes. MARCIAL BROWN M.D. Apr 25, 2019 15:22
[2019-04-25] MEDS ORDERED: INSULIN ASPART [NOVOLOG] 3 ML PEN SC ONE (15:30)
[2019-04-25] MEDS ORDERED: LACTULOSE 30ML CUP NGT ONE (15:30)
[2019-04-25] MEDS ORDERED: NACL 0.9% 3 ML SYG IV SCH (16:00)
[2019-04-25] MEDS ORDERED: INSULIN GLARGINE [LANTus] (100 UNITS/ML) SYG SC ONE (16:30)
[2019-04-25] MEDS: FOLIC ACID 1 MG TAB NGT SCH (16:45)
[2019-04-25] MEDS: DEXAMETHASONE 4 MG TAB NGT SCH ×2 (16:45→23:41)
[2019-04-25] MEDS ORDERED: POTASSIUM CHLORIDE 10 MEQ in SOD CHLORIDE 0.9% 1,000 ML IV SCH (17:00)
[2019-04-25] MEDS ORDERED: ACCU-CHEK XX ONE (17:00)
[2019-04-25] MEDS: PIPER-TAZO 3.375 GM IV (PMX) 100 ML IVPB SCH (18:51)
[2019-04-25 20:00] VITALS: PULSE 74
[2019-04-25 21:34] VITALS: PULSE 75
[2019-04-25 21:38] VITALS: BP 159/91; PULSE 76; RESP 13
[2019-04-25 22:00] VITALS: BP 132/85; PULSE 68; RESP 9; Ht 177.8 cm; Wt 82.5 kg
[2019-04-25] MEDS ORDERED: GLUCOSE GEL 15 GRAM TUBE BUCCAL PRN (22:00)
[2019-04-25] MEDS ORDERED: DEXTROSE 50% 50 ML SYRINGE IV PRN ×2 (22:00)
[2019-04-25] MEDS ORDERED: GLUCAGON 1 MG INJ IM PRN (22:00)
[2019-04-25] MEDS ORDERED: GLUCOSE GEL 15 GRAM TUBE PO PRN ×2 (22:00)
[2019-04-25 23:00] VITALS: BP 147/98; PULSE 76; RESP 18
[2019-04-25] MEDS: LACTULOSE 30ML CUP NGT SCH (23:40)
[2019-04-25] MEDS: FAMOTIDINE 20 MG INJ IV SCH (23:40)
[2019-04-25] MEDS: LEVETIRACETAM 500 MG TAB NGT SCH (23:40)
[2019-04-25 23:49] VITALS: PULSE 80
[2019-04-26] VITALS (22 sets, daily range): BP systolic 103–160; BP diastolic 61–88; PULSE 49–82; RESP 8–19
[2019-04-26] MEDS: ACCU-CHEK XX SCH ×8 (01:00→17:11)
[2019-04-26] MEDS: NS + KCL 20 MEQ 1,000 ML IV SCH ×3 (02:56→20:29)
[2019-04-26] MEDS: PIPER-TAZO 3.375 GM IV (PMX) 100 ML IVPB SCH ×3 (02:56→17:29)
[2019-04-26] MEDS ORDERED: INSULIN LISPRO 100 UNIT/ML VIAL SC ONE (06:00)
[2019-04-26] MEDS: DEXAMETHASONE 4 MG TAB NGT SCH ×3 (06:06→21:35)
[2019-04-26] MEDS ORDERED: ACCU-CHEK XX ONE (08:00)
[2019-04-26] MEDS: LEVETIRACETAM 500 MG TAB NGT SCH ×2 (08:36→20:29)
[2019-04-26] MEDS: FOLIC ACID 1 MG TAB NGT SCH (08:36)
[2019-04-26] MEDS: SPIRONOLACTONE 50 MG TAB NGT SCH (08:36)
[2019-04-26] MEDS: FUROSEMIDE 40 MG TAB NGT SCH (08:37)
[2019-04-26] MEDS: LACTULOSE 30ML CUP NGT SCH ×3 (08:37→20:28)
[2019-04-26] MEDS: FAMOTIDINE 20 MG INJ IV SCH ×2 (08:37→20:28)
[2019-04-26] MEDS: INSULIN ASPART [NOVOLOG] 3 ML PEN SC SCH ×3 (10:39→21:36)
--- NOTE | 2019-04-26 11:20 | PN ---
Date/Time of Note Date/Time of Note DATE: 04/26/19 TIME: 11:16 Assessment/Plan VTE Prophylaxis Risk score (from Nsg)>0 risk: 5 SCD applied (from Nsg): Yes Lines/Catheters IV Catheter Type (from Nrsg): Peripheral IV Urinary Cath still in place: Yes Assessment/Plan Assessment/Plan 1. Mr. Gloria is a 64-year-old man who suffered a tonic-clonic seizure two weeks ago, and was diagnosed with an intracranial tumor during that admission -- a noncalcified frontal lobe mass most consistent with meningioma. 2. Presented yesterday with altered level of consciousness and severe hyperammonemia in the context of cirrhosis of unknown etiology. Ammonia level falling with lactulose per NG tube. 3. Hypertension better controlled 4. Thrombocytopenia worse (43k/ul), with severe bruising of the right hand but no active bleeding 5. Type 2 diabetes mellitus, with hyperglycemia responding to hydration and insulin per low-dose sliding scale 6. Bruising of right forearm. No apparent pain with exam. Concern for possible occult fall/fracture PLAN: 1. Continue ICU-level care, monitoring lactic acid 2. Per nasogastric tube, administration of lactulose and rifaximin, in addition to Keppra and other medications 3. Dr. Trevor Hassan to evaluate for CCM 4. Full code and seizure precautions 5. Famotidine 20mg IV q12h for GI protection 6. SCDs for DVT prevention 7. HgbA1c, insulin coverage to bring down his blood sugars 8. IV saline support until he is able to take PO medications again 9. Consult neurology again -- Dr. Trevor Abrams to see 10. Right forearm and wrist films 11. Disposition is home with his and daughter once stable Micki Brown MD PhD [facility] [phone] Result Diagram: 04/26/19 0425 04/26/19 0425 Results 24hrs Laboratory Tests Test 04/25/19 12:12 04/25/19 12:18 04/25/19 12:40 04/25/19 15:43 White Blood Count 14.8 #H Red Blood Count 4.81 # Hemoglobin 15.5 # Hematocrit 44.2 # Mean Corpuscular Volume 91.9 Mean Corpuscular 32.2 Hemoglobin Mean Corpuscular 35.1 Hemoglobin Concent Red Cell Distribution 12.6 Width Platelet Count 56 L Mean Platelet Volume 12.7 H Immature Granulocytes % 0.900 H Neutrophils % 87.7 H Lymphocytes % 4.9 L Monocytes % 6.3 Eosinophils % 0.0 Basophils % 0.2 Nucleated Red Blood 0.0 Cells % Immature Granulocytes # 0.130 H Neutrophils # 13.0 H Lymphocytes # 0.7 L Monocytes # 0.9 Eosinophils # 0.0 Basophils # 0.0 Nucleated Red Blood 0.0 Cells # Sodium Level 129 L Potassium Level 4.1 Chloride Level 92 L Carbon Dioxide Level 25 Anion Gap 12 Blood Urea Nitrogen 48 H Creatinine 0.78 Est Glomerular Filtrat > 60 Rate mL/min Glucose Level 460 *H Calcium Level 8.4 Total Bilirubin 1.5 H Direct Bilirubin 0.00 Indirect Bilirubin 1.5 H Aspartate Amino 36 Transf (AST/SGOT) Alanine 63 Aminotransferase (ALT/SG PT) Alkaline Phosphatase 110 Ammonia 175 H Total Protein 7.5 Albumin 3.0 L Globulin 4.50 H Albumin/Globulin Ratio 0.66 Salicylates Level < 1.0 L Acetaminophen Level < 10.0 L Ethyl Alcohol Level < 10.0 H POC Venous Lactate 2.6 *H Bedside Glucose 416 *H 312 H Test 04/25/19 16:45 04/25/19 17:15 04/25/19 18:21 04/25/19 22:42 Bedside Glucose 376 H 280 H Lactic Acid Level 4.6 *H 4.3 *H Test 04/25/19 23:09 04/26/19 04:25 04/26/19 05:08 04/26/19 06:04 Sodium Level 129 L 132 L Potassium Level 3.4 L 3.7 Chloride Level 94 L 98 Carbon Dioxide Level 25 26 Anion Gap 10 8 Blood Urea Nitrogen 46 H 45 H Creatinine 0.80 0.84 Est Glomerular Filtrat > 60 > 60 Rate mL/min Glucose Level 321 H 340 H Lactic Acid Level 3.9 *H Calcium Level 8.2 L 7.9 L Ammonia 133 H 154 H White Blood Count 11.5 #H Red Blood Count 4.19 L Hemoglobin 13.6 L Hematocrit 37.9 L Mean Corpuscular Volume 90.5 Mean Corpuscular 32.5 Hemoglobin Mean Corpuscular 35.9 Hemoglobin Concent Red Cell Distribution 12.6 Width Platelet Count 43 #L Mean Platelet Volume 13.3 H Immature Granulocytes % 0.800 H Neutrophils % 91.9 H Lymphocytes % 3.0 L Monocytes % 4.1 Eosinophils % 0.0 Basophils % 0.2 Nucleated Red Blood 0.0 Cells % Immature Granulocytes # 0.090 H Neutrophils # 10.6 H Lymphocytes # 0.4 L Monocytes # 0.5 Eosinophils # 0.0 Basophils # 0.0 Nucleated Red Blood 0.0 Cells # Hemoglobin A1c 8.2 H Magnesium Level 2.9 H Creatine Kinase 107 Creatine Kinase Index 1.1 Creatinine Kinase MB 1.17 (Mass) Troponin I < 0.012 Thyroid Stimulating 0.190 L Hormone (TSH) Bedside Glucose 309 H 337 H Test 04/26/19 08:36 04/26/19 10:34 04/26/19 10:35 Bedside Glucose 314 H 308 H Creatine Kinase 96 Creatine Kinase Index Pending Creatinine Kinase MB Pending (Mass) Troponin I Pending Subjective 24 Hr Interval Summary Free Text/Dictation Comatose, with limited response to sternal rub. No family at bedside. Exam/Review of Systems Exam Vitals Vital Signs Date Temp Pulse Resp B/P (MAP) Pulse Ox O2 O2 Flow FiO2 Time Delivery Rate 04/26/19 52 9 135/68 99 11:00 (90) 04/26/19 97.6 Room Air 08:00 04/25/19 2 12:00 Intake and Output 04/25/19 04/25/19 04/26/19 1515:00 23:00 07:00 IntakeIntake Total 200 ml 900 ml OutputOutput Total 560 ml 545 ml BalanceBalance -360 ml 355 ml Exam GENERAL: Well-developed, mildly cachectic. Unresponsive to voice or shaking HEENT: Supple neck, no JVD, no carotid bruits, no signs of head trauma. PERRL. No scleral icterus or conjunctivitis. LUNGS: Clear to auscultation bilaterally. CARDIAC: Regular rhythm, normal rate. No murmur. Good peripheral perfusion. ABDOMEN: Soft, mildly distended, obese. Normoactive bowel sounds. No rebound or guarding. EXTREMITIES: No clubbing or cyanosis. But he had severe clonus at the wrists bilaterally, with severe bruising and mild edema of the right wrist and forearm. NEUROLOGICAL: Comatose. Symmetric 1+ patellar DTR. Normal Babinski reflexes. Results Results 24hrs Laboratory Tests Test 04/25/19 12:12 04/25/19 12:18 04/25/19 12:40 04/25/19 15:43 White Blood Count 14.8 #H Red Blood Count 4.81 # Hemoglobin 15.5 # Hematocrit 44.2 # Mean Corpuscular Volume 91.9 Mean Corpuscular 32.2 Hemoglobin Mean Corpuscular 35.1 Hemoglobin Concent Red Cell Distribution 12.6 Width Platelet Count 56 L Mean Platelet Volume 12.7 H Immature Granulocytes % 0.900 H Neutrophils % 87.7 H Lymphocytes % 4.9 L Monocytes % 6.3 Eosinophils % 0.0 Basophils % 0.2 Nucleated Red Blood 0.0 Cells % Immature Granulocytes # 0.130 H Neutrophils # 13.0 H Lymphocytes # 0.7 L Monocytes # 0.9 Eosinophils # 0.0 Basophils # 0.0 Nucleated Red Blood 0.0 Cells # Sodium Level 129 L Potassium Level 4.1 Chloride Level 92 L Carbon Dioxide Level 25 Anion Gap 12 Blood Urea Nitrogen 48 H Creatinine 0.78 Est Glomerular Filtrat > 60 Rate mL/min Glucose Level 460 *H Calcium Level 8.4 Total Bilirubin 1.5 H Direct Bilirubin 0.00 Indirect Bilirubin 1.5 H Aspartate Amino 36 Transf (AST/SGOT) Alanine 63 Aminotransferase (ALT/SG PT) Alkaline Phosphatase 110 Ammonia 175 H Total Protein 7.5 Albumin 3.0 L Globulin 4.50 H Albumin/Globulin Ratio 0.66 Salicylates Level < 1.0 L Acetaminophen Level < 10.0 L Ethyl Alcohol Level < 10.0 H POC Venous Lactate 2.6 *H Bedside Glucose 416 *H 312 H Test 04/25/19 16:45 04/25/19 17:15 04/25/19 18:21 04/25/19 22:42 Bedside Glucose 376 H 280 H Lactic Acid Level 4.6 *H 4.3 *H Test 04/25/19 23:09 04/26/19 04:25 04/26/19 05:08 04/26/19 06:04 Sodium Level 129 L 132 L Potassium Level 3.4 L 3.7 Chloride Level 94 L 98 Carbon Dioxide Level 25 26 Anion Gap 10 8 Blood Urea Nitrogen 46 H 45 H Creatinine 0.80 0.84 Est Glomerular Filtrat > 60 > 60 Rate mL/min Glucose Level 321 H 340 H Lactic Acid Level 3.9 *H Calcium Level 8.2 L 7.9 L Ammonia 133 H 154 H White Blood Count 11.5 #H Red Blood Count 4.19 L Hemoglobin 13.6 L Hematocrit 37.9 L Mean Corpuscular Volume 90.5 Mean Corpuscular 32.5 Hemoglobin Mean Corpuscular 35.9 Hemoglobin Concent Red Cell Distribution 12.6 Width Platelet Count 43 #L Mean Platelet Volume 13.3 H Immature Granulocytes % 0.800 H Neutrophils % 91.9 H Lymphocytes % 3.0 L Monocytes % 4.1 Eosinophils % 0.0 Basophils % 0.2 Nucleated Red Blood 0.0 Cells % Immature Granulocytes # 0.090 H Neutrophils # 10.6 H Lymphocytes # 0.4 L Monocytes # 0.5 Eosinophils # 0.0 Basophils # 0.0 Nucleated Red Blood 0.0 Cells # Hemoglobin A1c 8.2 H Magnesium Level 2.9 H Creatine Kinase 107 Creatine Kinase Index 1.1 Creatinine Kinase MB 1.17 (Mass) Troponin I < 0.012 Thyroid Stimulating 0.190 L Hormone (TSH) Bedside Glucose 309 H 337 H Test 04/26/19 08:36 04/26/19 10:34 04/26/19 10:35 Bedside Glucose 314 H 308 H Creatine Kinase 96 Creatine Kinase Index Pending Creatinine Kinase MB Pending (Mass) Troponin I Pending Medications Medication Current Medications Ondansetron HCl (Zofran Inj) 4 mg BRIDGE ORDER PRN IV NAUSEA/VOMITING; Start 04/25/19 at 14:00; Stop 04/26/19 at 13:59 Acetaminophen (Tylenol Tab) 650 mg ER BRIDGE PRN PO .MILD PAIN 1-3 OR TEMP; Start 04/25/19 at 14:00; Stop 04/26/19 at 13:59 Dexamethasone (Decadron) 4 mg Q8 NGT Last administered on 04/26/19at 06:06; Admin Dose 4 MG; Start 04/25/19 at 16:00 Folic Acid (Folic Acid) 1 mg DAILY NGT Last administered on 04/26/19at 08:36; Admin Dose 1 MG; Start 04/25/19 at 16:00 Furosemide (Lasix) 80 mg DAILY NGT Last administered on 04/26/19at 08:37; Admin Dose 80 MG; Start 04/26/19 at 09:00 Lactulose (Enulose) 40 gm TID NGT Last administered on 04/26/19at 08:37; Admin Dose 40 GM; Start 04/25/19 at 21:00 Levetiracetam (Keppra) 1,000 mg BID NGT Last administered on 04/26/19at 08:36; Admin Dose 1,000 MG; Start 04/25/19 at 21:00 Spironolactone (Aldactone) 100 mg DAILY NGT Last administered on 04/26/19at 08:36; Admin Dose 100 MG; Start 04/26/19 at 09:00 Famotidine (Pepcid Iv) 20 mg Q12H RESP THERAPY IV Last administered on 04/26/19at 08:37; Admin Dose 20 MG; Start 04/25/19 at 20:00 IV Flush (NS 3 ml) 3 ml PER PROTOCOL IV ; Start 04/25/19 at 16:00 Ondansetron HCl (Zofran Inj) 4 mg Q6H PRN IV NAUSEA/VOMITING Last administered on 04/26/19at 10:42; Admin Dose 4 MG; Start 04/25/19 at 16:00 Piperacillin Sod/ Tazobactam Sod 100 ml @ 200 mls/hr Q8H IVPB Last administered on 04/26/19at 10:30; Admin Dose 200 MLS/HR; Start 04/25/19 at 18:13 Miscellaneous Information 1 ea NOTE XX ; Start 04/25/19 at 22:00 Glucose (Glutose) 15 gm Q15M PRN PO DECREASED GLUCOSE; Start 04/25/19 at 22:00 Glucose (Glutose) 22.5 gm Q15M PRN PO DECREASED GLUCOSE; Start 04/25/19 at 22:00 Dextrose (D50w Syringe) 25 ml Q15M PRN IV DECREASED GLUCOSE; Start 04/25/19 at 22:00 Dextrose (D50w Syringe) 50 ml Q15M PRN IV DECREASED GLUCOSE; Start 04/25/19 at 22:00 Glucagon (Glucagen) 1 mg Q15M PRN IM DECREASED GLUCOSE; Start 04/25/19 at 22:00 Glucose (Glutose) 15 gm Q15M PRN BUCCAL DECREASED GLUCOSE; Start 04/25/19 at 22:00 Potassium Chloride/Sodium Chloride 1,000 ml @ 100 mls/hr Q10H IV Last administered on 04/26/19at 10:30; Admin Dose 100 MLS/HR; Start 04/26/19 at 01:00 Diagnostic Test (Pha) (Accu-Chek) 1 ea Q2H XX ; Start 04/26/19 at 08:00 Diagnostic Test (Pha) (Accu-Chek) 1 ea 02 XX ; Start 04/27/19 at 02:00 Insulin Aspart (Novolog Insulin Pen) NOVOLOG *MILD* ALGORITHM WITH MEALS BEDTIME SC Last administered on 04/26/19at 10:39; Admin Dose 5 UNIT; Start 04/26/19 at 11:30 MARCIAL BROWN M.D. Apr 26, 2019 11:20
--- NOTE | 2019-04-26 16:15 | CONS ---
Assessment/Plan Assessment/Plan Assessment/Plan (Daily) IMP: 1. Altered Mental Status--likely 2/2 hepatic encephalopathy though cannot exclude co-existing post-ictal state vs.non-convulsive seizures 2. Possible Meningioma--previously complicated by seizures 3. Lactic acidosis--2/2 poor lactate clearance 2/2 cirrhosis vs.seizure related 4. Cirrhosis--query cryptogenic RECS: 1. Obtain PT/INR to fully evaluate LFTs 2. Add rifaximin to lactulose regimen 3. Aspiration and seizure precautions 4. Keppra 5. EEG 6. Neuro consult 7. Liver U/S 8. Follow lactate clearance 1. Mr. Gloria is a 64-year-old man who suffered a tonic-clonic seizure two weeks ago, and was diagnosed with an intracranial tumor during that admission -- a noncalcified frontal lobe mass most consistent with meningioma. 2. Presented yesterday with altered level of consciousness and severe in the context of cirrhosis of unknown etiology. Ammonia level falling with lactulose per NG tube. 3. Hypertension better controlled 4. Thrombocytopenia worse (43k/ul), with severe bruising of the right hand but no active bleeding 5. Type 2 diabetes mellitus, with hyperglycemia responding to hydration and insulin per low-dose sliding scale 6. Bruising of right forearm. No apparent pain with exam. Concern for possible occult fall/fracture PLAN: 1. Continue ICU-level care, monitoring lactic acid 2. Per nasogastric tube, administration of lactulose and rifaximin, in addition to Keppra and other medications 3. Dr. Kojo Heller to evaluate for CCM 4. Full code and seizure precautions 5. Famotidine 20mg IV q12h for GI protection 6. SCDs for DVT prevention 7. HgbA1c, insulin coverage to bring down his blood sugars 8. IV saline support until he is able to take PO medications again 9. Consult neurology again -- Dr. Kojo Abrams to see 10. Right forearm and wrist films 11. Disposition is home with his and daughter once stable Consultation Date/Type/Reason Admit Date/Time 04/25/2019 Date of Consultation: Apr 26, 2019 Type of Consult Briefly, this is a 64-year-old man with history of DM, HTN, possible cryptogenic cirrhosis, newly diagnosed extra-axial brain tumor, admitted yesterday with AMS, found to have hyperammonemia as well as concern for possible seizure. Currently, he is obtunded though protecting his airway. Reason for Consultation ICU Care Requesting Provider: MARCIAL BEY M.D. Date/Time of Note DATE: 04/26/19 TIME: 16:03 Subjective hx not possible: pt non-verbal Respiratory: shortness of breath Past Medical History as per HPI Home Meds Active Scripts Levetiracetam* (Keppra*) 1,000 Mg Tablet, 1000 MG PO BID for 30 Days, TAB 3 Refills Prov:PHUONG GARCIA MD 04/12/19 Pantoprazole* (Protonix*) 40 Mg Tablet.dr, 40 MG PO DAILY for 30 Days, TAB Prov:PHUONG GARCIA MD 04/12/19 Dexamethasone* (Dexamethasone*) 4 Mg Tablet, 4 MG PO Q8 for 15 Days, TAB 4 mg every 8 hours x3 days then every 12 hours x3 days then 2 mg every 8 hours x3 days then 2 mg every 12 hours x3 days then 2 mg daily x3 days. Prov:PHUONG GARCIA MD 04/12/19 Lactulose* (Lactulose*) 20 Gm/30 Ml Solution, 20 GM PO TID for 30 Days Prov:PHUONG GARCIA MD 04/12/19 Reported Medications Furosemide* (Furosemide*) 40 Mg Tablet, 80 MG ORAL DAILY 04/11/19 Tramadol HCl (Tramadol HCl) 50 Mg Tablet, 50 MG PO Q8H PRN for PAIN LEVEL 4-7, #120 TAB 04/11/19 Sitagliptin Phos/Metformin HCl (Janumet 50-1,000 mg Tablet) 1 Each Tablet, 1 TAB ORAL DAILY 04/11/19 Spironolactone* (Spironolactone*) 100 Mg Tablet, 200 TAB ORAL DAILY 04/11/19 Folic Acid* (Folic Acid*) 1 Mg Tablet, 1 TAB ORAL DAILY 04/11/19 Medications Current Medications Dexamethasone (Decadron) 4 mg Q8 NGT Last administered on 04/26/19at 13:47; Admin Dose 4 MG; Start 04/25/19 at 16:00 Folic Acid (Folic Acid) 1 mg DAILY NGT Last administered on 04/26/19at 08:36; Admin Dose 1 MG; Start 04/25/19 at 16:00 Furosemide (Lasix) 80 mg DAILY NGT Last administered on 04/26/19 08:37; Admin Dose 80 MG; Start 04/26/19 at 09:00 Lactulose (Enulose) 40 gm TID NGT Last administered on 04/26/19 13:47; Admin Dose 40 GM; Start 04/25/19 at 21:00 Levetiracetam (Keppra) 1,000 mg BID NGT Last administered on 04/26/19 08:36; Admin Dose 1,000 MG; Start 04/25/19 at 21:00 Spironolactone (Aldactone) 100 mg DAILY NGT Last administered on 04/26/19 08:36; Admin Dose 100 MG; Start 04/26/19 at 09:00 Famotidine (Pepcid Iv) 20 mg Q12H RESP THERAPY IV Last administered on 04/26/19 08:37; Admin Dose 20 MG; Start 04/25/19 at 20:00 IV Flush (NS 3 ml) 3 ml PER PROTOCOL IV ; Start 04/25/19 at 16:00 Ondansetron HCl (Zofran Inj) 4 mg Q6H PRN IV NAUSEA/VOMITING Last administered on 04/26/19at 10:42; Admin Dose 4 MG; Start 04/25/19 at 16:00 Piperacillin Sod/ Tazobactam Sod 100 ml @ 200 mls/hr Q8H IVPB Last administered on 04/26/19at 10:30; Admin Dose 200 MLS/HR; Start 04/25/19 at 18:13 Miscellaneous Information 1 ea NOTE XX ; Start 04/25/19 at 22:00 Glucose (Glutose) 15 gm Q15M PRN PO DECREASED GLUCOSE; Start 04/25/19 at 22:00 Glucose (Glutose) 22.5 gm Q15M PRN PO DECREASED GLUCOSE; Start 04/25/19 at 22:00 Dextrose (D50w Syringe) 25 ml Q15M PRN IV DECREASED GLUCOSE; Start 04/25/19 at 22:00 Dextrose (D50w Syringe) 50 ml Q15M PRN IV DECREASED GLUCOSE; Start 04/25/19 at 22:00 Glucagon (Glucagen) 1 mg Q15M PRN IM DECREASED GLUCOSE; Start 04/25/19 at 22:00 Glucose (Glutose) 15 gm Q15M PRN BUCCAL DECREASED GLUCOSE; Start 04/25/19 at 22:00 Potassium Chloride/Sodium Chloride 1,000 ml @ 100 mls/hr Q10H IV Last administered on 04/26/19at 10:30; Admin Dose 100 MLS/HR; Start 04/26/19 at 01:00 Diagnostic Test (Pha) (Accu-Chek) 1 ea Q2H XX ; Start 04/26/19 at 08:00 Diagnostic Test (Pha) (Accu-Chek) 1 ea 02 XX ; Start 04/27/19 at 02:00 Insulin Aspart (Novolog Insulin Pen) NOVOLOG *MILD* ALGORITHM WITH MEALS BEDTIME SC Last administered on 04/26/19at 10:39; Admin Dose 5 UNIT; Start 04/26/19 at 11:30 Rifaximin (Xifaxan) 550 mg BID NGT ; Start 04/26/19 at 21:00; Status UNV Allergies: Coded Allergies: No Known Allergy (Unverified , 04/11/19) Past Surgical History unknown Family History Significant Family History: no pertinent family hx Social History Smoking Status: Unknown if ever smoked Drug Use: none Exam/Review of Systems Exam Vitals Vital Signs Date Temp Pulse Resp B/P (MAP) Pulse Ox O2 O2 Flow FiO2 Time Delivery Rate 04/26/19 56 9 119/67 98 14:00 (84) 04/26/19 97.7 Room Air 12:00 04/25/19 2 12:00 Intake and Output 04/25/19 04/25/19 04/26/19 1515:00 23:00 07:00 IntakeIntake Total 200 ml 900 ml OutputOutput Total 560 ml 545 ml BalanceBalance -360 ml 355 ml Constitutional: non-verbal Head: normocephalic, atraumatic Eyes: nl conjunctiva, nl sclera, PERRL Neck: supple, non-tender Respiratory: clear to auscultation Cardiovascular: regular rate and rhythm Gastrointestinal: soft, nl liver, spleen, non-tender Musculoskeletal: nl extremities to inspection Extremities: normal pulses Neurological: lethargic Skin: nl turgor Results Result Diagram: 04/26/19 0425 04/26/19 0425 Results 24hrs Laboratory Tests Test 04/25/19 16:45 04/25/19 17:15 04/25/19 18:21 04/25/19 22:42 Bedside Glucose 376 H 280 H Lactic Acid Level 4.6 *H 4.3 *H Test 04/25/19 23:09 04/26/19 04:25 04/26/19 05:08 04/26/19 06:04 Sodium Level 129 L 132 L Potassium Level 3.4 L 3.7 Chloride Level 94 L 98 Carbon Dioxide Level 25 26 Anion Gap 10 8 Blood Urea Nitrogen 46 H 45 H Creatinine 0.80 0.84 Est Glomerular Filtrat > 60 > 60 Rate mL/min Glucose Level 321 H 340 H Lactic Acid Level 3.9 *H Calcium Level 8.2 L 7.9 L Ammonia 133 H 154 H White Blood Count 11.5 #H Red Blood Count 4.19 L Hemoglobin 13.6 L Hematocrit 37.9 L Mean Corpuscular Volume 90.5 Mean Corpuscular 32.5 Hemoglobin Mean Corpuscular 35.9 Hemoglobin Concent Red Cell Distribution 12.6 Width Platelet Count 43 #L Mean Platelet Volume 13.3 H Immature Granulocytes % 0.800 H Neutrophils % 91.9 H Lymphocytes % 3.0 L Monocytes % 4.1 Eosinophils % 0.0 Basophils % 0.2 Nucleated Red Blood 0.0 Cells % Immature Granulocytes # 0.090 H Neutrophils # 10.6 H Lymphocytes # 0.4 L Monocytes # 0.5 Eosinophils # 0.0 Basophils # 0.0 Nucleated Red Blood 0.0 Cells # Hemoglobin A1c 8.2 H Magnesium Level 2.9 H Creatine Kinase 107 Creatine Kinase Index 1.1 Creatinine Kinase MB 1.17 (Mass) Troponin I < 0.012 Thyroid Stimulating 0.190 L Hormone (TSH) Bedside Glucose 309 H 337 H Test 04/26/19 08:36 04/26/19 10:34 04/26/19 10:35 04/26/19 13:47 Bedside Glucose 314 H 308 H 251 H Creatine Kinase 96 Creatine Kinase Index 1.4 Creatinine Kinase MB 1.32 (Mass) Troponin I < 0.012 Medications Medication Current Medications Dexamethasone (Decadron) 4 mg Q8 NGT Last administered on 04/26/19at 13:47; Admin Dose 4 MG; Start 04/25/19 at 16:00 Folic Acid (Folic Acid) 1 mg DAILY NGT Last administered on 04/26/19at 08:36; Admin Dose 1 MG; Start 04/25/19 at 16:00 Furosemide (Lasix) 80 mg DAILY NGT Last administered on 04/26/19 08:37; Admin Dose 80 MG; Start 04/26/19 at 09:00 Lactulose (Enulose) 40 gm TID NGT Last administered on 04/26/19at 13:47; Admin Dose 40 GM; Start 04/25/19 at 21:00 Levetiracetam (Keppra) 1,000 mg BID NGT Last administered on 04/26/19 08:36; Admin Dose 1,000 MG; Start 04/25/19 at 21:00 Spironolactone (Aldactone) 100 mg DAILY NGT Last administered on 04/26/19 08:36; Admin Dose 100 MG; Start 04/26/19 at 09:00 Famotidine (Pepcid Iv) 20 mg Q12H RESP THERAPY IV Last administered on 04/26/19 08:37; Admin Dose 20 MG; Start 04/25/19 at 20:00 IV Flush (NS 3 ml) 3 ml PER PROTOCOL IV ; Start 04/25/19 at 16:00 Ondansetron HCl (Zofran Inj) 4 mg Q6H PRN IV NAUSEA/VOMITING Last administered on 04/26/19at 10:42; Admin Dose 4 MG; Start 04/25/19 at 16:00 Piperacillin Sod/ Tazobactam Sod 100 ml @ 200 mls/hr Q8H IVPB Last administered on 04/26/19at 10:30; Admin Dose 200 MLS/HR; Start 04/25/19 at 18:13 Miscellaneous Information 1 ea NOTE XX ; Start 04/25/19 at 22:00 Glucose (Glutose) 15 gm Q15M PRN PO DECREASED GLUCOSE; Start 04/25/19 at 22:00 Glucose (Glutose) 22.5 gm Q15M PRN PO DECREASED GLUCOSE; Start 04/25/19 at 22:00 Dextrose (D50w Syringe) 25 ml Q15M PRN IV DECREASED GLUCOSE; Start 04/25/19 at 22:00 Dextrose (D50w Syringe) 50 ml Q15M PRN IV DECREASED GLUCOSE; Start 04/25/19 at 22:00 Glucagon (Glucagen) 1 mg Q15M PRN IM DECREASED GLUCOSE; Start 04/25/19 at 22:00 Glucose (Glutose) 15 gm Q15M PRN BUCCAL DECREASED GLUCOSE; Start 04/25/19 at 22:00 Potassium Chloride/Sodium Chloride 1,000 ml @ 100 mls/hr Q10H IV Last administered on 04/26/19at 10:30; Admin Dose 100 MLS/HR; Start 04/26/19 at 01:00 Diagnostic Test (Pha) (Accu-Chek) 1 ea Q2H XX ; Start 04/26/19 at 08:00 Diagnostic Test (Pha) (Accu-Chek) 1 ea 02 XX ; Start 04/27/19 at 02:00 Insulin Aspart (Novolog Insulin Pen) NOVOLOG *MILD* ALGORITHM WITH MEALS BEDTIME SC Last administered on 04/26/19at 10:39; Admin Dose 5 UNIT; Start 04/26/19 at 11:30 Rifaximin (Xifaxan) 550 mg BID NGT ; Start 04/26/19 at 21:00; Status UNV KOJO HELLER MD Apr 26, 2019 16:15
[2019-04-26] MEDS ORDERED: SERTRALINE 50 MG TAB PO PRN (17:40)
[2019-04-26] MEDS: QUETIAPINE 25 MG TAB PO PRN (18:02)
[2019-04-26] MEDS ORDERED: CEFTRIAXONE 1 GM/50 ML (PMX) 50 ML IVPB SCH (19:30)
[2019-04-26] MEDS: RIFAXIMIN 550 MG TAB NGT SCH (20:29)
[2019-04-27] VITALS (21 sets, daily range): BP systolic 85–159; BP diastolic 44–119; PULSE 50–93; RESP 8–24
[2019-04-27] MEDS ORDERED: LORAZEPAM 2 MG INJ IV ONE
[2019-04-27] MEDS: INSULIN ASPART [NOVOLOG] 3 ML PEN SC SCH ×6 (00:33→20:52)
[2019-04-27] MEDS: NS + KCL 20 MEQ 1,000 ML IV SCH ×2 (00:44→10:28)
[2019-04-27] MEDS ORDERED: ACCU-CHEK XX SCH (02:00)
[2019-04-27] MEDS: QUETIAPINE 25 MG TAB PO PRN ×2 (04:30→20:40)
[2019-04-27] MEDS: DEXAMETHASONE 4 MG TAB NGT SCH ×3 (05:24→22:41)
[2019-04-27] MEDS: FAMOTIDINE 20 MG INJ IV SCH ×2 (09:49→20:47)
[2019-04-27] MEDS: LEVETIRACETAM 500 MG TAB NGT SCH ×2 (10:02→22:40)
[2019-04-27] MEDS: RIFAXIMIN 550 MG TAB NGT SCH ×2 (10:02→20:47)
[2019-04-27] MEDS: LACTULOSE 30ML CUP NGT SCH ×3 (10:02→20:47)
[2019-04-27] MEDS: FOLIC ACID 1 MG TAB NGT SCH (10:02)
[2019-04-27] MEDS: FUROSEMIDE 40 MG TAB NGT SCH (10:03)
[2019-04-27] MEDS: SPIRONOLACTONE 50 MG TAB NGT SCH (10:03)
--- NOTE | 2019-04-27 10:05 | CONS ---
Consult Date/Type/Reason Admit Date/Time Apr 25, 2019 at 13:58 Initial Consult Date 04/26/19 Type of Consult Pulmonary Requesting Provider: MARCIAL BEY M.D. Date/Time of Note DATE: 04/27/19 TIME: 09:51 Subjective Remains confused but stable. Objective Vital Signs Date Temp Pulse Resp B/P (MAP) Pulse Ox O2 O2 Flow FiO2 Time Delivery Rate 04/27/19 53 08:00 04/27/19 21 101/66 100 Nasal 3.0 06:00 (78) Cannula 04/27/19 27 05:10 04/27/19 98.2 04:00 Intake and Output 04/26/19 04/26/19 04/27/19 1515:00 23:00 07:00 IntakeIntake Total 900 ml 1100 ml 400 ml OutputOutput Total 1300 ml 1300 ml 1450 ml BalanceBalance -400 ml -200 ml -1050 ml Vent Setting Fraction of Inspired Oxygen pe: 27 Results/Medications Result Diagram: 04/27/19 0434 04/27/19 0434 Results 24 hrs Laboratory Tests Test 04/26/19 10:34 04/26/19 10:35 04/26/19 13:47 04/26/19 17:00 Bedside Glucose 308 H 251 H Creatine Kinase 96 Creatine Kinase 1.4 Index Creatinine Kinase 1.32 MB (Mass) Troponin I < 0.012 Urine Opiates Negative Screen Urine Barbiturates Negative Urine Amphetamines Negative Screen Urine Negative Benzodiazepines Screen Urine Cocaine Negative Screen Urine Cannabinoids Negative Test 04/26/19 17:06 04/26/19 17:07 04/26/19 18:08 04/26/19 21:34 Bedside Glucose 220 208 Prothrombin Time 16.2 H Prothrombin Time 1.3 Ratio INR International 1.29 Normalized Ratio Sodium Level 136 Potassium Level 3.8 Chloride Level 102 Carbon Dioxide 22 Level Anion Gap 12 Blood Urea 51 H Nitrogen Creatinine 1.20 Est Glomerular > 60 Filtrat Rate mL/min Glucose Level 238 #H Lactic Acid Level 4.0 *H Calcium Level 8.2 L Ammonia 28 # Test 04/27/19 00:31 04/27/19 04:34 04/27/19 05:00 04/27/19 05:25 Bedside Glucose 216 171 White Blood Count 17.4 #H Red Blood Count 4.29 L Hemoglobin 13.8 L Hematocrit 40.9 L Mean Corpuscular 95.3 Volume Mean Corpuscular 32.2 Hemoglobin Mean Corpuscular 33.7 Hemoglobin Concent Red Cell 13.1 Distribution Width Platelet Count 30 #L Mean Platelet 13.4 H Volume Immature 0.800 H Granulocytes % Neutrophils % 92.8 H Lymphocytes % 2.4 L Monocytes % 3.8 Eosinophils % 0.0 Basophils % 0.2 Nucleated Red 0.0 Blood Cells % Immature 0.140 H Granulocytes # Neutrophils # 16.2 H Lymphocytes # 0.4 L Monocytes # 0.7 Eosinophils # 0.0 Basophils # 0.0 Nucleated Red 0.0 Blood Cells # Sodium Level 141 Potassium Level 4.0 Chloride Level 106 Carbon Dioxide 27 Level Anion Gap 8 Blood Urea 55 H Nitrogen Creatinine 1.16 Est Glomerular > 60 Filtrat Rate mL/min Glucose Level 186 Lactic Acid Level 4.7 *H Calcium Level 8.4 Ferritin 241.0 Blood Gas Specimen Blood arterial Source Arterial Blood 04/27/2019 4:30:25 Date Drawn AM Arterial Blood pH 7.481 H (Temp corrected) Arterial Blood 30.7 L pCO2 (Temp correct) Arterial Blood pO2 55.5 L (Temp corrected) Arterial Blood 22.4 HCO3 Arterial Blood -0.1 Base Excess Arterial Blood 88.4 L Oxygen Saturation Moe Test ACCEPTAB Arterial Blood Gas Right Radial Puncture Site Arterial 1.3 Blood Carboxyhemog lobin Arterial Blood 0.3 Methemoglobin Blood Gas A-a O2 57.5 H Differential Oxyhemoglobin 87.0 L Percent Blood Gas 37.0 Temperature Blood Gas Actual 20 Respiration Rate Blood Gas Modality ROOM AIR FiO2 21.0 Blood Gas Critical LTEJADA POMPOM MAKER Value Read Back Blood Gas Notified MA Whom Blood Gas Notified 04/27/2019 4:47:11 Time AM Medications Current Medications Dexamethasone (Decadron) 4 mg Q8 NGT Last administered on 04/27/19at 05:24; Admin Dose 4 MG; Start 04/25/19 at 16:00 Folic Acid (Folic Acid) 1 mg DAILY NGT Last administered on 04/26/19at 08:36; Admin Dose 1 MG; Start 04/25/19 at 16:00 Furosemide (Lasix) 80 mg DAILY NGT Last administered on 04/26/19at 08:37; Admin Dose 80 MG; Start 04/26/19 at 09:00 Lactulose (Enulose) 40 gm TID NGT Last administered on 04/26/19 20:28; Admin Dose 40 GM; Start 04/25/19 at 21:00 Levetiracetam (Keppra) 1,000 mg BID NGT Last administered on 04/26/19 20:29; Admin Dose 1,000 MG; Start 04/25/19 at 21:00 Spironolactone (Aldactone) 100 mg DAILY NGT Last administered on 04/26/19at 08:36; Admin Dose 100 MG; Start 04/26/19 at 09:00 Famotidine (Pepcid Iv) 20 mg Q12H RESP THERAPY IV Last administered on 04/26/19 20:28; Admin Dose 20 MG; Start 04/25/19 at 20:00 IV Flush (NS 3 ml) 3 ml PER PROTOCOL IV ; Start 04/25/19 at 16:00 Ondansetron HCl (Zofran Inj) 4 mg Q6H PRN IV NAUSEA/VOMITING Last administered on 04/26/19at 10:42; Admin Dose 4 MG; Start 04/25/19 at 16:00 Miscellaneous Information 1 ea NOTE XX ; Start 04/25/19 at 22:00 Glucose (Glutose) 15 gm Q15M PRN PO DECREASED GLUCOSE; Start 04/25/19 at 22:00 Glucose (Glutose) 22.5 gm Q15M PRN PO DECREASED GLUCOSE; Start 04/25/19 at 22:00 Dextrose (D50w Syringe) 25 ml Q15M PRN IV DECREASED GLUCOSE; Start 04/25/19 at 22:00 Dextrose (D50w Syringe) 50 ml Q15M PRN IV DECREASED GLUCOSE; Start 04/25/19 at 22:00 Glucagon (Glucagen) 1 mg Q15M PRN IM DECREASED GLUCOSE; Start 04/25/19 at 22:00 Glucose (Glutose) 15 gm Q15M PRN BUCCAL DECREASED GLUCOSE; Start 04/25/19 at 22:00 Potassium Chloride/Sodium Chloride 1,000 ml @ 100 mls/hr Q10H IV Last administered on 04/27/19 00:44; Admin Dose 100 MLS/HR; Start 04/26/19 at 01:00 Rifaximin (Xifaxan) 550 mg BID NGT Last administered on 6/2/19at 20:29; Admin Dose 550 MG; Start 04/26/19 at 21:00 Quetiapine Fumarate (Seroquel) 50 mg Q8H PRN PO Agitation Last administered on 04/27/19 04:30; Admin Dose 50 MG; Start 04/26/19 at 17:30 Ceftriaxone Sodium 50 ml @ 100 mls/hr Q24H IVPB Last administered on 04/26/19at 20:28; Admin Dose 100 MLS/HR; Start 04/26/19 at 19:30 Insulin Aspart (Novolog Insulin Pen) NOVOLOG *MILD* ALGORI... Q4 SC Last administered on 04/27/19 05:30; Admin Dose 1 UNIT; Start 04/26/19 at 21:00 Assessment/Plan Hospital Course (Demo Recall) IMP: 1. Altered Mental Status--likely 2/2 hepatic encephalopathy though cannot exclude co-existing post-ictal state vs.non-convulsive seizures 2. Possible Meningioma--previously complicated by seizures 3. Lactic acidosis--2/2 poor lactate clearance 2/2 cirrhosis vs.seizure related 4. Cirrhosis--query cryptogenic RECS: 1. Obtain PT/INR to fully evaluate LFTs 2. Continue rifaximin to lactulose regimen 3. Aspiration and seizure precautions 4. Keppra 5. EEG and neuro recs 6. Liver u/s GI recs cc40 mins JHONATAN BUNDY MD, [facility] Apr 27, 2019 10:05
--- NOTE | 2019-04-27 14:19 | PN ---
Date/Time of Note Date/Time of Note DATE: 04/27/19 TIME: 14:14 Subjective Patient remains confused and disoriented. No complaint of pain. Objective Vitals Vital Signs Date Temp Pulse Resp B/P (MAP) Pulse Ox O2 O2 Flow FiO2 Time Delivery Rate 04/27/19 55 8 133/66 100 Nasal 3.0 13:00 (88) Cannula 04/27/19 96.9 12:00 04/27/19 27 05:10 Intake and Output 04/26/19 04/26/19 04/27/19 1515:00 23:00 07:00 IntakeIntake Total 900 ml 1100 ml 600 ml OutputOutput Total 1300 ml 1300 ml 1450 ml BalanceBalance -400 ml -200 ml -850 ml Clear to auscultation bilaterally Regular rate and rhythm no murmurs or gallops Soft nontender nondistended normoactive bowel sounds No edema Moves all extremities Results Result Diagram: 04/27/19 0434 04/27/19 0434 Medications Medications Current Medications Dexamethasone (Decadron) 4 mg Q8 NGT Last administered on 04/27/19 13:42; Admin Dose 4 MG; Start 04/25/19 at 16:00 Folic Acid (Folic Acid) 1 mg DAILY NGT Last administered on 04/27/19 10:02; Admin Dose 1 MG; Start 04/25/19 at 16:00 Furosemide (Lasix) 80 mg DAILY NGT Last administered on 04/27/19 10:03; Admin Dose 80 MG; Start 04/26/19 at 09:00 Lactulose (Enulose) 40 gm TID NGT Last administered on 04/27/19 13:38; Admin Dose 40 GM; Start 04/25/19 at 21:00 Levetiracetam (Keppra) 1,000 mg BID NGT Last administered on 04/27/19 10:02; Admin Dose 1,000 MG; Start 04/25/19 at 21:00 Spironolactone (Aldactone) 100 mg DAILY NGT Last administered on 04/27/19 10:03; Admin Dose 100 MG; Start 04/26/19 at 09:00 Famotidine (Pepcid Iv) 20 mg Q12H RESP THERAPY IV Last administered on 04/27/19 09:49; Admin Dose 20 MG; Start 04/25/19 at 20:00 IV Flush (NS 3 ml) 3 ml PER PROTOCOL IV ; Start 04/25/19 at 16:00 Ondansetron HCl (Zofran Inj) 4 mg Q6H PRN IV NAUSEA/VOMITING Last administered on 04/26/19at 10:42; Admin Dose 4 MG; Start 04/25/19 at 16:00 Miscellaneous Information 1 ea NOTE XX ; Start 04/25/19 at 22:00 Glucose (Glutose) 15 gm Q15M PRN PO DECREASED GLUCOSE; Start 04/25/19 at 22:00 Glucose (Glutose) 22.5 gm Q15M PRN PO DECREASED GLUCOSE; Start 04/25/19 at 22:00 Dextrose (D50w Syringe) 25 ml Q15M PRN IV DECREASED GLUCOSE; Start 04/25/19 at 22:00 Dextrose (D50w Syringe) 50 ml Q15M PRN IV DECREASED GLUCOSE; Start 04/25/19 at 22:00 Glucagon (Glucagen) 1 mg Q15M PRN IM DECREASED GLUCOSE; Start 04/25/19 at 22:00 Glucose (Glutose) 15 gm Q15M PRN BUCCAL DECREASED GLUCOSE; Start 04/25/19 at 22:00 Potassium Chloride/Sodium Chloride 1,000 ml @ 100 mls/hr Q10H IV Last administered on 04/27/19at 10:28; Admin Dose 100 MLS/HR; Start 04/26/19 at 01:00 Rifaximin (Xifaxan) 550 mg BID NGT Last administered on 04/27/19at 10:02; Admin Dose 550 MG; Start 04/26/19 at 21:00 Quetiapine Fumarate (Seroquel) 50 mg Q8H PRN PO Agitation Last administered on 04/27/19at 04:30; Admin Dose 50 MG; Start 04/26/19 at 17:30 Insulin Aspart (Novolog Insulin Pen) NOVOLOG *MILD* ALGORI... Q4 SC Last administered on 04/27/19at 13:41; Admin Dose 4 UNIT; Start 04/26/19 at 21:00 Insulin Glargine (Lantus) 16 units DAILY@2000 SC ; Start 04/27/19 at 20:00 Piperacillin Sod/ Tazobactam Sod 100 ml @ 200 mls/hr Q8 IVPB ; Start 04/27/19 at 14:30; Status UNV VTE Prophylaxis Risk score (from Ns)>0 risk: 4 SCD applied (from Ns): Yes Lines/Catheters IV Catheter Type: Saline Lock Veliz in Place: No Assessment/Plan Assessment/Plan 64-year-old male with metabolic encephalopathy due to hyper ammonia Persistent leukocytosis. Rule out acute cholecystitis. Ultrasound shows a thickened gallbladder wall and gallstones Meningioma involving frontal lobe Hypertension Transfer to telemetry Continue lactulose and rifaximin Surgical consultation Neurology consultation PHUONG GARCIA MD Apr 27, 2019 14:19
[2019-04-27] MEDS: PIPER-TAZO 3.375 GM IV (PMX) 100 ML IVPB SCH ×2 (14:52→22:44)
[2019-04-27] MEDS: INSULIN GLARGINE [LANTus] (100 UNITS/ML) SYG SC SCH (20:49)
[2019-04-28] VITALS (12 sets, daily range): BP systolic 120–146; BP diastolic 63–74; PULSE 43–61; RESP 16–19
[2019-04-28] MEDS: INSULIN ASPART [NOVOLOG] 3 ML PEN SC SCH ×6 (01:30→21:28)
[2019-04-28] MEDS: NS + KCL 20 MEQ 1,000 ML IV SCH ×3 (03:19→23:05)
[2019-04-28] MEDS: QUETIAPINE 25 MG TAB PO PRN (04:43)
[2019-04-28] MEDS: PIPER-TAZO 3.375 GM IV (PMX) 100 ML IVPB SCH (05:08)
[2019-04-28] MEDS: DEXAMETHASONE 4 MG TAB NGT SCH ×2 (05:09→14:00)
[2019-04-28] MEDS ORDERED: HALOPERIDOL 5 MG INJ IM PRN ×2 (06:30)
--- NOTE | 2019-04-28 07:22 | CONS ---
Assessment/Plan Assessment/Plan Assessment/Plan (Daily) Assessment and recommendations; 1. Patient admitted with acutely altered mental status likely from hepatic encephalopathy and possibly postictal. 2. Cerebral meningioma. 3. Severe thrombocytopenia. 4. Possibly some element of aspiration pneumonia. Leukocytosis is improving. Continue current supportive care. Discontinue Zosyn and switch to cefepime because of thrombocytopenia. Monitor platelet count. Consultation Date/Type/Reason Admit Date/Time Apr 25, 2019 at 13:58 Initial Consult Date 04/26/19 Type of Consult Pulmonary Reason for Consultation Patient's condition is stable. Has been transferred out of ICU to medical floor. No further seizure activity reported. General exam; elderly male, currently no distress. Appearing lethargic. Requesting Provider: MARCIAL BEY M.D. Date/Time of Note DATE: 04/28/19 TIME: 07:20 Exam/Review of Systems Exam Vitals Vital Signs Date Temp Pulse Resp B/P (MAP) Pulse Ox O2 O2 Flow FiO2 Time Delivery Rate 04/28/19 57 04:00 04/28/19 97.7 18 140/70 98 Room Air 03:46 (93) 04/27/19 3.0 20:00 04/27/19 27 05:10 Intake and Output 04/27/19 04/27/19 04/28/19 1515:00 23:00 07:00 IntakeIntake Total 920 ml 230 ml 1860 ml OutputOutput Total 815 ml 1220 ml 750 ml BalanceBalance 105 ml -990 ml 1110 ml Exam H EENT exam; supple neck, no JVD. No lymphadenopathy. Midline trachea. No thyromegaly. Patient has multiple carious teeth. Chest exam; diminished but clear breath sounds. S1-S2 audible, no murmurs. Regular rhythm. Abdomen exam; soft, nontender. No organomegaly. Bowel sounds audible. Extremity exam; no peripheral edema clubbing. Patient does have patchy ecchym osis. [employer] exam; patient is awake but lethargic and follows simple commands. Results Result Diagram: 04/28/19 0528 04/28/19 0528 Results 24hrs Laboratory Tests Test 04/27/19 09:49 04/27/19 13:40 04/27/19 17:51 04/27/19 20:38 Bedside Glucose 223 H 262 H 210 234 H Test 04/28/19 01:27 04/28/19 05:28 Bedside Glucose 235 H White Blood Count 8.7 # Red Blood Count 4.06 L Hemoglobin 13.2 L Hematocrit 38.7 L Mean Corpuscular Volume 95.3 Mean Corpuscular 32.5 Hemoglobin Mean Corpuscular 34.1 Hemoglobin Concent Red Cell Distribution 13.0 Width Platelet Count 23 #*L Mean Platelet Volume 13.0 H Immature Granulocytes % 0.500 H Neutrophils % 92.4 H Lymphocytes % 3.1 L Monocytes % 3.8 Eosinophils % 0.0 Basophils % 0.2 Nucleated Red Blood 0.0 Cells % Immature Granulocytes # 0.040 H Neutrophils # 8.0 H Lymphocytes # 0.3 L Monocytes # 0.3 Eosinophils # 0.0 Basophils # 0.0 Nucleated Red Blood 0.0 Cells # Sodium Level 140 Potassium Level 4.0 Chloride Level 110 Carbon Dioxide Level 23 Anion Gap 7 Blood Urea Nitrogen 56 H Creatinine 1.03 Est Glomerular Filtrat > 60 Rate mL/min Glucose Level 247 H Calcium Level 8.3 L Ammonia 26 Medications Medication Current Medications Dexamethasone (Decadron) 4 mg Q8 NGT Last administered on 04/28/19 05:09; Admin Dose 4 MG; Start 04/25/19 at 16:00 Folic Acid (Folic Acid) 1 mg DAILY NGT Last administered on 04/27/19 10:02; Admin Dose 1 MG; Start 04/25/19 at 16:00 Furosemide (Lasix) 80 mg DAILY NGT Last administered on 04/27/19 10:03; Admin Dose 80 MG; Start 04/26/19 at 09:00 Lactulose (Enulose) 40 gm TID NGT Last administered on 04/27/19at 20:47; Admin Dose 40 GM; Start 04/25/19 at 21:00 Levetiracetam (Keppra) 1,000 mg BID NGT Last administered on 04/27/19 22:40; Admin Dose 1,000 MG; Start 04/25/19 at 21:00 Spironolactone (Aldactone) 100 mg DAILY NGT Last administered on 04/27/19 10:03; Admin Dose 100 MG; Start 04/26/19 at 09:00 IV Flush (NS 3 ml) 3 ml PER PROTOCOL IV ; Start 04/25/19 at 16:00 Ondansetron HCl (Zofran Inj) 4 mg Q6H PRN IV NAUSEA/VOMITING Last administered on 04/26/19at 10:42; Admin Dose 4 MG; Start 04/25/19 at 16:00 Miscellaneous Information 1 ea NOTE XX ; Start 04/25/19 at 22:00 Glucose (Glutose) 15 gm Q15M PRN PO DECREASED GLUCOSE; Start 04/25/19 at 22:00 Glucose (Glutose) 22.5 gm Q15M PRN PO DECREASED GLUCOSE; Start 04/25/19 at 22:00 Dextrose (D50w Syringe) 25 ml Q15M PRN IV DECREASED GLUCOSE; Start 04/25/19 at 22:00 Dextrose (D50w Syringe) 50 ml Q15M PRN IV DECREASED GLUCOSE; Start 04/25/19 at 22:00 Glucagon (Glucagen) 1 mg Q15M PRN IM DECREASED GLUCOSE; Start 04/25/19 at 22:00 Glucose (Glutose) 15 gm Q15M PRN BUCCAL DECREASED GLUCOSE; Start 04/25/19 at 22:00 Potassium Chloride/Sodium Chloride 1,000 ml @ 100 mls/hr Q10H IV Last administered on 04/28/19at 03:19; Admin Dose 100 MLS/HR; Start 04/26/19 at 01:00 Rifaximin (Xifaxan) 550 mg BID NGT Last administered on 04/27/19at 20:47; Admin Dose 550 MG; Start 04/26/19 at 21:00 Quetiapine Fumarate (Seroquel) 50 mg Q8H PRN PO Agitation Last administered on 04/28/19at 04:43; Admin Dose 50 MG; Start 04/26/19 at 17:30 Insulin Aspart (Novolog Insulin Pen) NOVOLOG *MILD* ALGORI... Q4 SC Last administered on 04/28/19at 01:30; Admin Dose 3 UNIT; Start 04/26/19 at 21:00 Insulin Glargine (Lantus) 16 units DAILY@2000 SC Last administered on 04/27/19at 20:49; Admin Dose 16 UNITS; Start 04/27/19 at 20:00 Piperacillin Sod/ Tazobactam Sod 100 ml @ 200 mls/hr Q8 IVPB Last administered on 04/28/19at 05:08; Admin Dose 200 MLS/HR; Start 04/27/19 at 14:30 Famotidine (Pepcid Iv) 20 mg Q12 IV Last administered on 04/27/19at 20:47; Admin Dose 20 MG; Start 04/27/19 at 21:00 Haloperidol (Haldol) 2 mg Q4 PRN IM AGITATION; Start 04/28/19 at 06:30 DRE GIRALDO Apr 28, 2019 07:22
[2019-04-28] MEDS: FAMOTIDINE 20 MG INJ IV SCH ×2 (10:00→21:20)
[2019-04-28] MEDS: CEFEPIME 1GM/50 ML (PMX) 50 ML IVPB SCH ×2 (10:00→21:20)
[2019-04-28] MEDS: SPIRONOLACTONE 50 MG TAB NGT SCH (10:03)
[2019-04-28] MEDS: LACTULOSE 30ML CUP NGT SCH ×3 (10:04→21:20)
[2019-04-28] MEDS: FOLIC ACID 1 MG TAB NGT SCH (10:04)
[2019-04-28] MEDS: LEVETIRACETAM 500 MG TAB NGT SCH ×2 (10:04→21:21)
[2019-04-28] MEDS: RIFAXIMIN 550 MG TAB NGT SCH ×2 (10:05→21:21)
[2019-04-28] MEDS: FUROSEMIDE 40 MG TAB NGT SCH (10:05)
--- NOTE | 2019-04-28 10:37 | PN ---
Date/Time of Note Date/Time of Note DATE: 04/28/19 TIME: 10:35 Subjective Patient remains lethargic. Unable to follow commands. Objective Vitals Vital Signs Date Temp Pulse Resp B/P (MAP) Pulse Ox O2 O2 Flow FiO2 Time Delivery Rate 04/28/19 97.5 61 18 133/67 96 Room Air 08:52 (89) 04/27/19 3.0 20:00 04/27/19 27 05:10 Intake and Output 04/27/19 04/27/19 04/28/19 1515:00 23:00 07:00 IntakeIntake Total 920 ml 230 ml 1860 ml OutputOutput Total 815 ml 1220 ml 750 ml BalanceBalance 105 ml -990 ml 1110 ml Neck supple Lungs clear to auscultation Cardiac regular rate and rhythm Abdomen soft nontender nondistended normoactive bowel sounds No edema Results Result Diagram: 04/28/1952704/28/19527 Medications Medications Current Medications Dexamethasone (Decadron) 4 mg Q8 NGT Last administered on 04/28/19at 05:09; Admin Dose 4 MG; Start 04/25/19 at 16:00 Folic Acid (Folic Acid) 1 mg DAILY NGT Last administered on 04/27/19 10:02; Admin Dose 1 MG; Start 04/25/19 at 16:00 Furosemide (Lasix) 80 mg DAILY NGT Last administered on 04/27/19 10:03; Admin Dose 80 MG; Start 04/26/19 at 09:00 Lactulose (Enulose) 40 gm TID NGT Last administered on 04/27/19at 20:47; Admin Dose 40 GM; Start 04/25/19 at 21:00 Levetiracetam (Keppra) 1,000 mg BID NGT Last administered on 04/27/19 22:40; Admin Dose 1,000 MG; Start 04/25/19 at 21:00 Spironolactone (Aldactone) 100 mg DAILY NGT Last administered on 04/27/19 10:03; Admin Dose 100 MG; Start 04/26/19 at 09:00 IV Flush (NS 3 ml) 3 ml PER PROTOCOL IV ; Start 04/25/19 at 16:00 Ondansetron HCl (Zofran Inj) 4 mg Q6H PRN IV NAUSEA/VOMITING Last administered on 04/26/19at 10:42; Admin Dose 4 MG; Start 04/25/19 at 16:00 Miscellaneous Information 1 ea NOTE XX ; Start 04/25/19 at 22:00 Glucose (Glutose) 15 gm Q15M PRN PO DECREASED GLUCOSE; Start 04/25/19 at 22:00 Glucose (Glutose) 22.5 gm Q15M PRN PO DECREASED GLUCOSE; Start 04/25/19 at 22:00 Dextrose (D50w Syringe) 25 ml Q15M PRN IV DECREASED GLUCOSE; Start 04/25/19 at 22:00 Dextrose (D50w Syringe) 50 ml Q15M PRN IV DECREASED GLUCOSE; Start 04/25/19 at 22:00 Glucagon (Glucagen) 1 mg Q15M PRN IM DECREASED GLUCOSE; Start 04/25/19 at 22:00 Glucose (Glutose) 15 gm Q15M PRN BUCCAL DECREASED GLUCOSE; Start 04/25/19 at 22:00 Potassium Chloride/Sodium Chloride 1,000 ml @ 100 mls/hr Q10H IV Last administered on 04/28/19at 03:19; Admin Dose 100 MLS/HR; Start 04/26/19 at 01:00 Rifaximin (Xifaxan) 550 mg BID NGT Last administered on 04/27/19 20:47; Admin Dose 550 MG; Start 04/26/19 at 21:00 Quetiapine Fumarate (Seroquel) 50 mg Q8H PRN PO Agitation Last administered on 04/28/19at 04:43; Admin Dose 50 MG; Start 04/26/19 at 17:30 Insulin Aspart (Novolog Insulin Pen) NOVOLOG *MILD* ALGORI... Q4 SC Last administered on 04/28/19 01:30; Admin Dose 3 UNIT; Start 04/26/19 at 21:00 Insulin Glargine (Lantus) 16 units DAILY@2000 SC Last administered on 04/27/19at 20:49; Admin Dose 16 UNITS; Start 04/27/19 at 20:00 Famotidine (Pepcid Iv) 20 mg Q12 IV Last administered on 04/27/19at 20:47; Admin Dose 20 MG; Start 04/27/19 at 21:00 Haloperidol (Haldol) 2 mg Q4 PRN IM AGITATION; Start 04/28/19 at 06:30 Cefepime HCl 50 ml @ 100 mls/hr Q12 IVPB ; Start 04/28/19 at 09:00 VTE Prophylaxis Risk score (from Ns)>0 risk: 4 SCD applied (from Ns): Yes Lines/Catheters IV Catheter Type: Saline Lock Veliz in Place: No Assessment/Plan Assessment/Plan 64-year-old male with hepatic encephalopathy Persistent altered level of consciousness History of frontal lobe meningioma History of seizure disorder Marked thrombocytopenia Dehydration Type [address] of the brain Continue lactulose Neurology and neurosurgical consultation PHUONG GARCIA MD Apr 28, 2019 10:37
--- NOTE | 2019-04-28 14:28 | CONS ---
Assessment/Plan Assessment/Plan Hospital Course (Demo Recall) Summary Assessment and Plan: Assessment: Altered Mental Status -likely 2/2 to HE vs other- patient has improved with start of lactulose/rifaximin Liver cirrhosis with splenomegaly Large left frontal meningioma -With local mass effect and left frontal vasogenic edema. History of seizures Plan: Continue rifaximin 550 mg p.o. twice daily Continue lactulose at current dosage for now. Monitor labs Aspiration precautions ST evaluation for swallow eval- currently on clear liquid diet Patient current on Seroquel which could also add to his lethargy Hepatitis panel/AMA,ASMA Patient seen in collaboration with Dr. Pardo CC: LAURENT PARDO MD ; Consultation Date/Type/Reason Admit Date/Time Apr 25, 2019 at 13:58 Date of Consultation: Apr 28, 2019 Type of Consult GI Reason for Consultation AMS- Liver cirrhosis Date/Time of Note DATE: 04/28/19 TIME: 14:28 Hx of Present Illness This is a 64-year-old male with recent diagnosis of possible meningioma new onset seizures, HTN, liver cirrhosis- dx 4 years ago, DM type 2, who presented to the ED with altered mental status in a comatose state.On admission NG tube was placed for administration of lactulose as well as rifaximin and Keppra. A neurology consult was also ordered. Initial labs show leukocytosis of 14.8 which has since resolved thrombocytosis on admission and throughout stay indirect hyperbilirubinemia on admission with normal LFTs and a mild coagulopathy of 1.3 toxicology screen was negative patient currently with normocytic anemia he initially was admitted to ICU however mentation has improved and patient was transferred to telemetry. GI has been consulted for further evaluation regarding possible hepatic encephalopathy and, liver cirrhosis. Currently patient is lethargic patient is oriented to name only. NGT has been pulled out, and has started cl liq diet. It seems AMS may be 2.2 to HE as patient has improved with the start of rifaximin and lactulose. Family is not at bedside therefore HPI is limited unclear cause of liver cirrhosis additionally order hepatitis and autoimmune work-up. Review of Systems: A 12 system, review was conducted and is negative except as noted in the HPI or here. Past Medical History Home Meds Active Scripts Levetiracetam* (Keppra*) 1,000 Mg Tablet, 1000 MG PO BID for 30 Days, TAB 3 Refills Prov:PHUONG GARCIA MD 04/12/19 Pantoprazole* (Protonix*) 40 Mg Tablet.dr, 40 MG PO DAILY for 30 Days, TAB Prov:PHUONG GARCIA MD 04/12/19 Dexamethasone* (Dexamethasone*) 4 Mg Tablet, 4 MG PO Q8 for 15 Days, TAB 4 mg every 8 hours x3 days then every 12 hours x3 days then 2 mg every 8 hours x3 days then 2 mg every 12 hours x3 days then 2 mg daily x3 days. Prov:PHUONG GARCIA MD 04/12/19 Lactulose* (Lactulose*) 20 Gm/30 Ml Solution, 20 GM PO TID for 30 Days Prov:PHUONG GARCIA MD 04/12/19 Reported Medications Furosemide* (Furosemide*) 40 Mg Tablet, 80 MG ORAL DAILY 04/11/19 Tramadol HCl (Tramadol HCl) 50 Mg Tablet, 50 MG PO Q8H PRN for PAIN LEVEL 4-7, #120 TAB 04/11/19 Sitagliptin Phos/Metformin HCl (Janumet 50-1,000 mg Tablet) 1 Each Tablet, 1 TAB ORAL DAILY 04/11/19 Spironolactone* (Spironolactone*) 100 Mg Tablet, 200 TAB ORAL DAILY 04/11/19 Folic Acid* (Folic Acid*) 1 Mg Tablet, 1 TAB ORAL DAILY 04/11/19 Medications Current Medications Dexamethasone (Decadron) 4 mg Q8 NGT Last administered on 04/28/19 05:09; Admin Dose 4 MG; Start 04/25/19 at 16:00 Folic Acid (Folic Acid) 1 mg DAILY NGT Last administered on 04/28/19 10:04; Admin Dose 1 MG; Start 04/25/19 at 16:00 Furosemide (Lasix) 80 mg DAILY NGT Last administered on 04/28/19 10:05; Admin Dose 80 MG; Start 04/26/19 at 09:00 Lactulose (Enulose) 40 gm TID NGT Last administered on 04/28/19 10:04; Admin Dose 40 GM; Start 04/25/19 at 21:00 Levetiracetam (Keppra) 1,000 mg BID NGT Last administered on 04/28/19 10:04; Admin Dose 1,000 MG; Start 04/25/19 at 21:00 Spironolactone (Aldactone) 100 mg DAILY NGT Last administered on 04/28/19at 10:03; Admin Dose 100 MG; Start 04/26/19 at 09:00 IV Flush (NS 3 ml) 3 ml PER PROTOCOL IV ; Start 04/25/19 at 16:00 Ondansetron HCl (Zofran Inj) 4 mg Q6H PRN IV NAUSEA/VOMITING Last administered on 04/26/19at 10:42; Admin Dose 4 MG; Start 04/25/19 at 16:00 Miscellaneous Information 1 ea NOTE XX ; Start 04/25/19 at 22:00 Glucose (Glutose) 15 gm Q15M PRN PO DECREASED GLUCOSE; Start 04/25/19 at 22:00 Glucose (Glutose) 22.5 gm Q15M PRN PO DECREASED GLUCOSE; Start 04/25/19 at 22:00 Dextrose (D50w Syringe) 25 ml Q15M PRN IV DECREASED GLUCOSE; Start 04/25/19 at 22:00 Dextrose (D50w Syringe) 50 ml Q15M PRN IV DECREASED GLUCOSE; Start 04/25/19 at 22:00 Glucagon (Glucagen) 1 mg Q15M PRN IM DECREASED GLUCOSE; Start 04/25/19 at 22:00 Glucose (Glutose) 15 gm Q15M PRN BUCCAL DECREASED GLUCOSE; Start 04/25/19 at 22:00 Potassium Chloride/Sodium Chloride 1,000 ml @ 100 mls/hr Q10H IV Last administered on 04/28/19at 03:19; Admin Dose 100 MLS/HR; Start 04/26/19 at 01:00 Rifaximin (Xifaxan) 550 mg BID NGT Last administered on 04/28/19at 10:05; Admin Dose 550 MG; Start 04/26/19 at 21:00 Quetiapine Fumarate (Seroquel) 50 mg Q8H PRN PO Agitation Last administered on 04/28/19at 04:43; Admin Dose 50 MG; Start 04/26/19 at 17:30 Insulin Aspart (Novolog Insulin Pen) NOVOLOG *MILD* ALGORI... Q4 SC Last administered on 04/28/19 10:07; Admin Dose 3 UNIT; Start 04/26/19 at 21:00 Insulin Glargine (Lantus) 16 units DAILY@2000 SC Last administered on 04/27/19at 20:49; Admin Dose 16 UNITS; Start 04/27/19 at 20:00 Famotidine (Pepcid Iv) 20 mg Q12 IV Last administered on 04/27/19at 20:47; Admin Dose 20 MG; Start 04/27/19 at 21:00 Haloperidol (Haldol) 2 mg Q4 PRN IM AGITATION; Start 04/28/19 at 06:30 Cefepime HCl 50 ml @ 100 mls/hr Q12 IVPB ; Start 04/28/19 at 09:00 Allergies: Coded Allergies: No Known Allergy (Unverified , 04/11/19) Social History Smoking Status: Unknown if ever smoked Drug Use: none Exam/Review of Systems Exam Vitals Vital Signs Date Temp Pulse Resp B/P (MAP) Pulse Ox O2 O2 Flow FiO2 Time Delivery Rate 04/28/19 98.5 58 19 132/74 100 Room Air 12:59 (93) 04/27/19 3.0 20:00 04/27/19 27 05:10 Intake and Output 04/27/19 04/27/19 04/28/19 1414:59 22:59 06:59 IntakeIntake Total 920 ml 330 ml 1860 ml OutputOutput Total 845 ml 1265 ml 750 ml BalanceBalance 75 ml -935 ml 1110 ml Exam PHYSICAL EXAMINATION: GENERAL: Lethargic & oriented x 1, sitter at bedside SKIN: No lesions HEAD: Normocephalic, atraumatic, no tenderness. EYES: Pupils equal reactive to light and accommodation, no discharge. EARS/NOSE AND THROAT: Ears normal, nose normal, oropharynx normal. NECK: Supple, no masses. CHEST: Inspection within normal limits. CARDIOVASCULAR: Heart: Regular rate and rhythm RESPIRATORY: Lungs clear to auscultation GASTROINTESTINAL AND LIVER: Abdomen: Soft, non tenderness, non-distended, no hernias, no masses, no organomegaly, no ascites, no guarding, no rebound t enderness, normoactive bowel sounds. Rectal: Deferred. Rectal tube in place Results Result Diagram: 04/28/19 0528 04/28/1928 Results 24hrs Laboratory Tests Test 04/27/19 17:51 04/27/19 20:38 04/28/19 01:27 04/28/19 05:28 Bedside Glucose 210 234 H 235 H White Blood Count 8.7 # Red Blood Count 4.06 L Hemoglobin 13.2 L Hematocrit 38.7 L Mean Corpuscular 95.3 Volume Mean Corpuscular 32.5 Hemoglobin Mean Corpuscular 34.1 Hemoglobin Concent Red Cell Distribution 13.0 Width Platelet Count 23 #*L Mean Platelet Volume 13.0 H Immature Granulocytes 0.500 H % Neutrophils % 92.4 H Segmented Neutrophils 96 H % (Manual) Lymphocytes % 3.1 L Lymphocytes % 2 L (Manual) Monocytes % 3.8 Monocytes % (Manual) 2 Eosinophils % 0.0 Basophils % 0.2 Nucleated Red Blood 0.0 Cells % Immature Granulocytes 0.040 H # Neutrophils # 8.0 H Lymphocytes (Manual) 0.1 L Lymphocytes # 0.3 L Monocytes # 0.3 Monocytes # (Manual) 0.1 L Eosinophils # 0.0 Basophils # 0.0 Nucleated Red Blood 0.0 Cells # Platelet Estimate SIG DECREASED Giant Platelets 2 H Platelet Morphology @See below Comment Anisocytosis 1+ Macrocytosis 1+ Sodium Level 140 Potassium Level 4.0 Chloride Level 110 Carbon Dioxide Level 23 Anion Gap 7 Blood Urea Nitrogen 56 H Creatinine 1.03 Est Glomerular > 60 Filtrat Rate mL/min Glucose Level 247 H Calcium Level 8.3 L Ammonia 26 Test 04/28/19 09:40 Bedside Glucose 258 H Medications Medication Current Medications Dexamethasone (Decadron) 4 mg Q8 NGT Last administered on 04/28/19 05:09; Admin Dose 4 MG; Start 04/25/19 at 16:00 Folic Acid (Folic Acid) 1 mg DAILY NGT Last administered on 04/28/19 10:04; Admin Dose 1 MG; Start 04/25/19 at 16:00 Furosemide (Lasix) 80 mg DAILY NGT Last administered on 04/28/19 10:05; Admin Dose 80 MG; Start 04/26/19 at 09:00 Lactulose (Enulose) 40 gm TID NGT Last administered on 04/28/19 10:04; Admin Dose 40 GM; Start 04/25/19 at 21:00 Levetiracetam (Keppra) 1,000 mg BID NGT Last administered on 04/28/19 10:04; Admin Dose 1,000 MG; Start 04/25/19 at 21:00 Spironolactone (Aldactone) 100 mg DAILY NGT Last administered on 04/28/19at 10: 03; Admin Dose 100 MG; Start 04/26/19 at 09:00 IV Flush (NS 3 ml) 3 ml PER PROTOCOL IV ; Start 04/25/19 at 16:00 Ondansetron HCl (Zofran Inj) 4 mg Q6H PRN IV NAUSEA/VOMITING Last administered on 04/26/19at 10:42; Admin Dose 4 MG; Start 04/25/19 at 16:00 Miscellaneous Information 1 ea NOTE XX ; Start 04/25/19 at 22:00 Glucose (Glutose) 15 gm Q15M PRN PO DECREASED GLUCOSE; Start 04/25/19 at 22:00 Glucose (Glutose) 22.5 gm Q15M PRN PO DECREASED GLUCOSE; Start 04/25/19 at 22:00 Dextrose (D50w Syringe) 25 ml Q15M PRN IV DECREASED GLUCOSE; Start 04/25/19 at 22:00 Dextrose (D50w Syringe) 50 ml Q15M PRN IV DECREASED GLUCOSE; Start 04/25/19 at 22:00 Glucagon (Glucagen) 1 mg Q15M PRN IM DECREASED GLUCOSE; Start 04/25/19 at 22:00 Glucose (Glutose) 15 gm Q15M PRN BUCCAL DECREASED GLUCOSE; Start 04/25/19 at 22:00 Potassium Chloride/Sodium Chloride 1,000 ml @ 100 mls/hr Q10H IV Last administered on 04/28/19at 03:19; Admin Dose 100 MLS/HR; Start 04/26/19 at 01:00 Rifaximin (Xifaxan) 550 mg BID NGT Last administered on 04/28/19at 10:05; Admin Dose 550 MG; Start 04/26/19 at 21:00 Quetiapine Fumarate (Seroquel) 50 mg Q8H PRN PO Agitation Last administered on 04/28/19 04:43; Admin Dose 50 MG; Start 04/26/19 at 17:30 Insulin Aspart (Novolog Insulin Pen) NOVOLOG *MILD* ALGORI... Q4 SC Last administered on 04/28/19 10:07; Admin Dose 3 UNIT; Start 04/26/19 at 21:00 Insulin Glargine (Lantus) 16 units DAILY@2000 SC Last administered on 04/27/19at 20:49; Admin Dose 16 UNITS; Start 04/27/19 at 20:00 Famotidine (Pepcid Iv) 20 mg Q12 IV Last administered on 04/27/19at 20:47; Admin Dose 20 MG; Start 04/27/19 at 21:00 Haloperidol (Haldol) 2 mg Q4 PRN IM AGITATION; Start 04/28/19 at 06:30 Cefepime HCl 50 ml @ 100 mls/hr Q12 IVPB ; Start 04/28/19 at 09:00 MALINA LOPES Apr 28, 2019 14:28
--- NOTE | 2019-04-28 14:54 | CONSI ---
Assessment/Plan Assessment/Plan Assessment/Plan (Recall) 64 yo M with hx of L frontal meningioma, recent onset seizures and other comorbidities who presents for evaluation of ams. He is noted to be protractedly encephalopathic... for which neurology is co nsulted. The clinical picture is most consistent with an acute toxic encephalopathy in the context of psychotropic medication overuse. CTH is without acute intracranial pathology, though notable for the L frontal meningioma with surrounding vasogenic edema. MRI brain from 03/2019 was also notable for the same. P: Ok to defer repeat MRI brain for now Hold seroquel in the short-term Limit other sedating medications where possible Cont medical management per primary Will follow clinically, to recommend neurologic studies, as necessary Consultation Date/Type/Reason Admit Date/Time Apr 25, 2019 at 13:58 Type of Consult Neurology Reason for Consultation ams Requesting Provider: MARCIAL BEY M.D. Date/Time of Note DATE: 04/28/19 TIME: 14:54 Hx of Present Illness The pt is currently unable to contribute a hx. It is elsewhere noted: Hx of Present Illness REASON FOR VISIT: Altered level of consciousness HISTORY OF PRESENT ILLNESS: Mr. Gloria is a 64-year-old man with a history of hypertension, liver cirrhosis, type 2 diabetes, and a newly-diagnosed brain tumor who presented to the emergency room this afternoon in a comatose state. He was doing well yesterday apart from decreased appetite, walking and able to feed himself. But he seemed more confused last night, and by this afternoon was not able to be awakened. Last month his called paramedics when she observed seizure activity about 9:30 in the morning, with blood noted around his mouth. He has no history of alcohol abuse, but was diagnosed with cirrhosis about 4 years prior to admission. Platelet count was low at 58,000 and serum ammonia elevated then at 280. CT scan of brain showed a 2.8 cm noncalcified mass in the anteromedial base left frontal lobe with surrounding white matter or edema. According to his daughter, they first knew about the mass about a year ago. The patient was seen in consultation by neurosurgeon, Dr. Ej Canela, and neurologist, Dr. Caceres. MRI of the brain with and without contrast showed a left frontal convex extra-axial mass consistent with meningioma and associated with mass effect and vasogenic edema. He had no headache, motor or sensory symptoms at that time, and remained asymptomatic during that hospitalization. Follow-up was planned with his PCP, neurologist and neurosurgeon as outpatient. Subjective hx not possible: pt non-verbal Objective Exam Vitals Vital Signs Date Temp Pulse Resp B/P (MAP) Pulse Ox O2 O2 Flow FiO2 Time Delivery Rate 04/28/19 98.5 58 19 132/74 100 Room Air 12:59 (93) 04/27/19 3.0 20:00 04/27/19 27 05:10 Intake and Output 04/27/19 04/27/19 04/28/19 1515:00 23:00 07:00 IntakeIntake Total 920 ml 230 ml 1890 ml OutputOutput Total 815 ml 1220 ml 750 ml BalanceBalance 105 ml -990 ml 1140 ml Exam PE: Gen Appearance: No Apparent Distress HEENT: Normocephalic Cardiovascular: Regular rate Abdomen: Soft Extremities: Dry NE: The patient was obtunded and nonverbal. Opens eyes briefly to noxious stimuli. Cranial nerve examination was limited by mental status. Pupils were equal and reactive to light. There was no afferent pupillary defect. Funduscopic examination was limited. Face was grossly symmetric, w/ present corneal and cough reflexes. Tone was normal. Muscle bulk was normal. I did not see fasciculations. The patient localized his upper extremities and withdrew his lowers to noxious stimulation. Coordination and gait testing was limited by mental status. Arm and leg reflexes were within normal limits and symmetric. Cotton's sign was absent. Plantar responses were flexor. Results Result Diagram: 04/28/19 0528 04/28/19527 Results 24hrs Laboratory Tests Test 04/27/19 17:51 04/27/19 20:38 04/28/19 01:27 04/28/19 05:28 Bedside Glucose 210 234 H 235 H White Blood Count 8.7 # Red Blood Count 4.06 L Hemoglobin 13.2 L Hematocrit 38.7 L Mean Corpuscular 95.3 Volume Mean Corpuscular 32.5 Hemoglobin Mean Corpuscular 34.1 Hemoglobin Concent Red Cell Distribution 13.0 Width Platelet Count 23 #*L Mean Platelet Volume 13.0 H Immature Granulocytes 0.500 H % Neutrophils % 92.4 H Segmented Neutrophils 96 H % (Manual) Lymphocytes % 3.1 L Lymphocytes % 2 L (Manual) Monocytes % 3.8 Monocytes % (Manual) 2 Eosinophils % 0.0 Basophils % 0.2 Nucleated Red Blood 0.0 Cells % Immature Granulocytes 0.040 H # Neutrophils # 8.0 H Lymphocytes (Manual) 0.1 L Lymphocytes # 0.3 L Monocytes # 0.3 Monocytes # (Manual) 0.1 L Eosinophils # 0.0 Basophils # 0.0 Nucleated Red Blood 0.0 Cells # Platelet Estimate SIG DECREASED Giant Platelets 2 H Platelet Morphology @See below Comment Anisocytosis 1+ Macrocytosis 1+ Sodium Level 140 Potassium Level 4.0 Chloride Level 110 Carbon Dioxide Level 23 Anion Gap 7 Blood Urea Nitrogen 56 H Creatinine 1.03 Est Glomerular > 60 Filtrat Rate mL/min Glucose Level 247 H Calcium Level 8.3 L Ammonia 26 Test 04/28/19 09:40 Bedside Glucose 258 H Past Medical History reviewed Home Meds Active Scripts Levetiracetam* (Keppra*) 1,000 Mg Tablet, 1000 MG PO BID for 30 Days, TAB 3 Refills Prov:PHUONG GARCIA MD 04/12/19 Pantoprazole* (Protonix*) 40 Mg Tablet.dr, 40 MG PO DAILY for 30 Days, TAB Prov:PHUONG GARCIA MD 04/12/19 Dexamethasone* (Dexamethasone*) 4 Mg Tablet, 4 MG PO Q8 for 15 Days, TAB 4 mg every 8 hours x3 days then every 12 hours x3 days then 2 mg every 8 hours x3 days then 2 mg every 12 hours x3 days then 2 mg daily x3 days. Prov:PHUONG GARCIA MD 04/12/19 Lactulose* (Lactulose*) 20 Gm/30 Ml Solution, 20 GM PO TID for 30 Days Prov:PHUONG GARCIA MD 04/12/19 Reported Medications Furosemide* (Furosemide*) 40 Mg Tablet, 80 MG ORAL DAILY 04/11/19 Tramadol HCl (Tramadol HCl) 50 Mg Tablet, 50 MG PO Q8H PRN for PAIN LEVEL 4-7, #120 TAB 04/11/19 Sitagliptin Phos/Metformin HCl (Janumet 50-1,000 mg Tablet) 1 Each Tablet, 1 TAB ORAL DAILY 04/11/19 Spironolactone* (Spironolactone*) 100 Mg Tablet, 200 TAB ORAL DAILY 04/11/19 Folic Acid* (Folic Acid*) 1 Mg Tablet, 1 TAB ORAL DAILY 04/11/19 Medications Current Medications Dexamethasone (Decadron) 4 mg Q8 NGT Last administered on 04/28/19 05:09; Admin Dose 4 MG; Start 04/25/19 at 16:00 Folic Acid (Folic Acid) 1 mg DAILY NGT Last administered on 04/28/19 10:04; Admin Dose 1 MG; Start 04/25/19 at 16:00 Furosemide (Lasix) 80 mg DAILY NGT Last administered on 04/28/19 10:05; Admin Dose 80 MG; Start 04/26/19 at 09:00 Lactulose (Enulose) 40 gm TID NGT Last administered on 04/28/19 10:04; Admin Dose 40 GM; Start 04/25/19 at 21:00 Levetiracetam (Keppra) 1,000 mg BID NGT Last administered on 04/28/19 10:04; Admin Dose 1,000 MG; Start 04/25/19 at 21:00 Spironolactone (Aldactone) 100 mg DAILY NGT Last administered on 04/28/19 10:03; Admin Dose 100 MG; Start 04/26/19 at 09:00 IV Flush (NS 3 ml) 3 ml PER PROTOCOL IV ; Start 04/25/19 at 16:00 Ondansetron HCl (Zofran Inj) 4 mg Q6H PRN IV NAUSEA/VOMITING Last administered on 04/26/19 10:42; Admin Dose 4 MG; Start 04/25/19 at 16:00 Miscellaneous Information 1 ea NOTE XX ; Start 04/25/19 at 22:00 Glucose (Glutose) 15 gm Q15M PRN PO DECREASED GLUCOSE; Start 04/25/19 at 22:00 Glucose (Glutose) 22.5 gm Q15M PRN PO DECREASED GLUCOSE; Start 04/25/19 at 22:00 Dextrose (D50w Syringe) 25 ml Q15M PRN IV DECREASED GLUCOSE; Start 04/25/19 at 22:00 Dextrose (D50w Syringe) 50 ml Q15M PRN IV DECREASED GLUCOSE; Start 04/25/19 at 2 2:00 Glucagon (Glucagen) 1 mg Q15M PRN IM DECREASED GLUCOSE; Start 04/25/19 at 22:00 Glucose (Glutose) 15 gm Q15M PRN BUCCAL DECREASED GLUCOSE; Start 04/25/19 at 22:00 Potassium Chloride/Sodium Chloride 1,000 ml @ 100 mls/hr Q10H IV Last administered on 04/28/19at 03:19; Admin Dose 100 MLS/HR; Start 04/26/19 at 01:00 Rifaximin (Xifaxan) 550 mg BID NGT Last administered on 04/28/19at 10:05; Admin Dose 550 MG; Start 04/26/19 at 21:00 Quetiapine Fumarate (Seroquel) 50 mg Q8H PRN PO Agitation Last administered on 04/28/19 04:43; Admin Dose 50 MG; Start 04/26/19 at 17:30 Insulin Aspart (Novolog Insulin Pen) NOVOLOG *MILD* ALGORI... Q4 SC Last administered on 04/28/19at 10:07; Admin Dose 3 UNIT; Start 04/26/19 at 21:00 Insulin Glargine (Lantus) 16 units DAILY@2000 SC Last administered on 04/27/19at 20:49; Admin Dose 16 UNITS; Start 04/27/19 at 20:00 Famotidine (Pepcid Iv) 20 mg Q12 IV Last administered on 04/27/19at 20:47; Admin Dose 20 MG; Start 04/27/19 at 21:00 Haloperidol (Haldol) 2 mg Q4 PRN IM AGITATION; Start 04/28/19 at 06:30 Cefepime HCl 50 ml @ 100 mls/hr Q12 IVPB ; Start 04/28/19 at 09:00 Allergies: Coded Allergies: No Known Allergy (Unverified , 04/11/19) Past Surgical History reviewed Social History reviewed Smoking Status: Unknown if ever smoked Drug Use: none SONY CARREON NP Apr 28, 2019 14:54 LOPEZ CACERES Apr 28, 2019 20:01
[2019-04-28] MEDS: DEXAMETHASONE 4 MG/ML 1 ML INJ IV SCH ×2 (19:09→23:05)
[2019-04-28] MEDS: INSULIN GLARGINE [LANTus] (100 UNITS/ML) SYG SC SCH (21:24)
[2019-04-29] VITALS (9 sets, daily range): BP systolic 129–133; BP diastolic 59–63; PULSE 46–53; RESP 18–20
[2019-04-29] MEDS: INSULIN ASPART [NOVOLOG] 3 ML PEN SC SCH ×4 (01:21→13:00)
[2019-04-29] MEDS: DEXAMETHASONE 4 MG/ML 1 ML INJ IV SCH ×2 (05:26→12:01)
[2019-04-29] MEDS: FAMOTIDINE 20 MG INJ IV SCH (08:20)
[2019-04-29] MEDS: CEFEPIME 1GM/50 ML (PMX) 50 ML IVPB SCH (08:20)
[2019-04-29] MEDS: FOLIC ACID 1 MG TAB NGT SCH (08:21)
[2019-04-29] MEDS: RIFAXIMIN 550 MG TAB NGT SCH (08:21)
[2019-04-29] MEDS: LEVETIRACETAM 500 MG TAB NGT SCH (08:21)
[2019-04-29] MEDS: LACTULOSE 30ML CUP NGT SCH ×3 (08:21→13:00)
[2019-04-29] MEDS: SPIRONOLACTONE 50 MG TAB NGT SCH (08:21)
[2019-04-29] MEDS: FUROSEMIDE 40 MG TAB NGT SCH (08:21)
[2019-04-29] MEDS ORDERED: RIFA550T4 NGT (10:03)
--- NOTE | 2019-04-29 10:50 | CONS ---
Assessment/Plan Assessment/Plan Assessment/Plan (Daily) Assessment and recommendations; 1. patient admitted with altered mental status likely due to hepatic encephalopathy possibly postictal in etiology as well. Clinically improving. 2. History of CHF, diabetes, chronic anemia. 3. Severe thrombocytopenia. No overt bleeding noted though. Likely due to cirrhosis. Continue current supportive care. Consultation Date/Type/Reason Admit Date/Time Apr 25, 2019 at 13:58 Initial Consult Date 04/26/19 Type of Consult Pulmonary Requesting Provider: MARCIAL BEY M.D. Date/Time of Note DATE: 04/29/19 TIME: 10:48 24 HR Interval Summary Free Text/Dictation Patient's condition is gradually improving. Patient is more responsive now. Has remained hemodynamically stable. General exam; elderly male, currently no distress. Exam/Review of Systems Exam Vitals Vital Signs Date Temp Pulse Resp B/P (MAP) Pulse Ox O2 O2 Flow FiO2 Time Delivery Rate 04/29/19 49 08:00 04/29/19 97.6 18 132/59 98 Room Air 07:30 (83) 04/27/19 3.0 20:00 04/27/19 27 05:10 Intake and Output 04/28/19 04/28/19 04/29/19 1515:00 23:00 07:00 IntakeIntake Total 470 ml 1430 ml 500 ml OutputOutput Total 650 ml 2000 ml 700 ml BalanceBalance -180 ml -570 ml -200 ml Exam HEENT exam; supple neck, no JVD. No lymphadenopathy. Midline trachea. No thyromegaly. No neck masses. Chest exam; clear to auscultation. S1-S2 audible, no murmurs. Regular rhythm. Abdomen exam; soft, nontender. No organomegaly. Bowel sounds audible. Extremity exam; peripheral edema clubbing. 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 More responsive. Results Result Diagram: 04/29/1952304/29/19 0524 Results 24hrs Laboratory Tests Test 04/28/19 16:00 04/28/19 19:08 04/28/19 21:18 04/29/19 01:08 Hepatitis B Surface NEGATIVE Antigen Hepatitis C Antibody NEGATIVE Bedside Glucose 329 H 274 H 204 Test 04/29/19 05:23 04/29/19 05:24 04/29/19 08:29 Bedside Glucose 120 171 White Blood Count 8.3 Red Blood Count 4.13 L Hemoglobin 13.4 L Hematocrit 39.5 L Mean Corpuscular Volume 95.6 Mean Corpuscular 32.4 Hemoglobin Mean Corpuscular 33.9 Hemoglobin Concent Red Cell Distribution 13.0 Width Platelet Count 22 *L Mean Platelet Volume 13.2 H Immature Granulocytes % 0.700 H Neutrophils % 91.9 H Lymphocytes % 3.9 L Monocytes % 3.4 Eosinophils % 0.0 Basophils % 0.1 Nucleated Red Blood 0.0 Cells % Immature Granulocytes # 0.060 H Neutrophils # 7.6 H Lymphocytes # 0.3 L Monocytes # 0.3 Eosinophils # 0.0 Basophils # 0.0 Nucleated Red Blood 0.0 Cells # Sodium Level 133 L Potassium Level 4.4 Chloride Level 103 Carbon Dioxide Level 26 Anion Gap 4 L Blood Urea Nitrogen 50 H Creatinine 0.83 Est Glomerular Filtrat > 60 Rate mL/min Glucose Level 131 # Calcium Level 8.4 Medications Medication Current Medications Folic Acid (Folic Acid) 1 mg DAILY NGT Last administered on 04/29/19 08:21; Admin Dose 1 MG; Start 04/25/19 at 16:00 Furosemide (Lasix) 80 mg DAILY NGT Last administered on 04/29/19 08:21; Admin Dose 80 MG; Start 04/26/19 at 09:00 Lactulose (Enulose) 40 gm TID NGT Last administered on 04/29/19 08:21; Admin Dose 40 GM; Start 04/25/19 at 21:00 Levetiracetam (Keppra) 1,000 mg BID NGT Last administered on 04/29/19 08:21; Admin Dose 1,000 MG; Start 04/25/19 at 21:00 Spironolactone (Aldactone) 100 mg DAILY NGT Last administered on 04/29/19 08: 21; Admin Dose 100 MG; Start 04/26/19 at 09:00 IV Flush (NS 3 ml) 3 ml PER PROTOCOL IV ; Start 04/25/19 at 16:00 Ondansetron HCl (Zofran Inj) 4 mg Q6H PRN IV NAUSEA/VOMITING Last administered on 04/26/19at 10:42; Admin Dose 4 MG; Start 04/25/19 at 16:00 Miscellaneous Information 1 ea NOTE XX ; Start 04/25/19 at 22:00 Glucose (Glutose) 15 gm Q15M PRN PO DECREASED GLUCOSE; Start 04/25/19 at 22:00 Glucose (Glutose) 22.5 gm Q15M PRN PO DECREASED GLUCOSE; Start 04/25/19 at 22:00 Dextrose (D50w Syringe) 25 ml Q15M PRN IV DECREASED GLUCOSE; Start 04/25/19 at 22:00 Dextrose (D50w Syringe) 50 ml Q15M PRN IV DECREASED GLUCOSE; Start 04/25/19 at 22:00 Glucagon (Glucagen) 1 mg Q15M PRN IM DECREASED GLUCOSE; Start 04/25/19 at 22:00 Glucose (Glutose) 15 gm Q15M PRN BUCCAL DECREASED GLUCOSE; Start 04/25/19 at 22:00 Rifaximin (Xifaxan) 550 mg BID NGT Last administered on 04/29/19at 08:21; Admin Dose 550 MG; Start 04/26/19 at 21:00 Insulin Aspart (Novolog Insulin Pen) NOVOLOG *MILD* ALGORI... Q4 SC Last admi nistered on 04/29/19at 01:21; Admin Dose 2 UNIT; Start 04/26/19 at 21:00 Insulin Glargine (Lantus) 16 units DAILY@2000 SC Last administered on 04/28/19at 21:24; Admin Dose 16 UNITS; Start 04/27/19 at 20:00 Famotidine (Pepcid Iv) 20 mg Q12 IV Last administered on 04/29/19at 08:20; Admin Dose 20 MG; Start 04/27/19 at 21:00 Haloperidol (Haldol) 2 mg Q4 PRN IM AGITATION; Start 04/28/19 at 06:30 Cefepime HCl 50 ml @ 100 mls/hr Q12 IVPB Last administered on 04/29/19at 08:20; Admin Dose 100 MLS/HR; Start 04/28/19 at 09:00 Dexamethasone (Decadron) 4 mg Q6 IV Last administered on 04/29/19at 05:26; Admin Dose 4 MG; Start 04/28/19 at 18:00 Miscellaneous Information (*Order Clarification Bulletin) MEDICATION REQUIRES CLARIFICATI... Q8H XX ; Start 04/29/19 at 01:30 DRE GIRALDO Apr 29, 2019 10:50
--- NOTE | 2019-04-29 11:06 | PN ---
Date/Time of Note Date/Time of Note DATE: 04/29/19 TIME: 11:04 Assessment/Plan VTE Prophylaxis Risk score (from Ns)>0 risk: 6 SCD applied (from Nsg): Yes Pharmacological prophylaxis: other (scds) Lines/Catheters IV Catheter Type (from [facility]): Peripheral IV Urinary Cath still in place: Yes Reason Cath still needed: other (indicate) (monitor output) Assessment/Plan Hospital Course Summary Assessment and Plan: Assessment: Altered Mental Status -likely 2/2 to HE vs other- patient has improved with start of lactulose/rifaximin Liver cirrhosis with splenomegaly Large left frontal meningioma -With local mass effect and left frontal vasogenic edema. History of seizures Plan: Continue rifaximin 550 mg p.o. twice daily/lactulose at current dosage for now. Monitor labs Aspiration precautions Patient current on Seroquel which could also add to his lethargy Hepatitis panel-HepB/C negative AMA,ASMA- pending Patient seen in collaboration with Dr. Pardo Subjective: Course reviewed with nursing staff Patient interviewed and examined All labs, imaging and other results reviewed The patient PHYSICAL EXAMINATION: GENERAL: Lethargic & oriented x 1, sitter at bedside SKIN: No lesions HEAD: Normocephalic, atraumatic, no tenderness. EYES: Pupils equal reactive to light and accommodation, no discharge. EARS/NOSE AND THROAT: Ears normal, nose normal, oropharynx normal. NECK: Supple, no masses. CHEST: Inspection within normal limits. CARDIOVASCULAR: Heart: Regular rate and rhythm RESPIRATORY: Lungs clear to auscultation GASTROINTESTINAL AND LIVER: Abdomen: Soft, non tenderness, non-distended, no hernias, no masses, no organomegaly, no ascites, no guarding, no rebound tenderness, normoactive bowel sounds. Rectal: Deferred. Rectal tube in place Result Diagram: 04/29/1952304/29/19523 Results 24hrs Laboratory Tests Test 04/28/19 16:00 04/28/19 19:08 04/28/19 21:18 04/29/19 01:08 Hepatitis B Surface NEGATIVE Antigen Hepatitis C Antibody NEGATIVE Bedside Glucose 329 H 274 H 204 Test 04/29/19 05:23 04/29/19 05:24 04/29/19 08:29 Bedside Glucose 120 171 White Blood Count 8.3 Red Blood Count 4.13 L Hemoglobin 13.4 L Hematocrit 39.5 L Mean Corpuscular Volume 95.6 Mean Corpuscular 32.4 Hemoglobin Mean Corpuscular 33.9 Hemoglobin Concent Red Cell Distribution 13.0 Width Platelet Count 22 *L Mean Platelet Volume 13.2 H Immature Granulocytes % 0.700 H Neutrophils % 91.9 H Lymphocytes % 3.9 L Monocytes % 3.4 Eosinophils % 0.0 Basophils % 0.1 Nucleated Red Blood 0.0 Cells % Immature Granulocytes # 0.060 H Neutrophils # 7.6 H Lymphocytes # 0.3 L Monocytes # 0.3 Eosinophils # 0.0 Basophils # 0.0 Nucleated Red Blood 0.0 Cells # Sodium Level 133 L Potassium Level 4.4 Chloride Level 103 Carbon Dioxide Level 26 Anion Gap 4 L Blood Urea Nitrogen 50 H Creatinine 0.83 Est Glomerular Filtrat > 60 Rate mL/min Glucose Level 131 # Calcium Level 8.4 Exam/Review of Systems Exam Vitals Vital Signs Date Temp Pulse Resp B/P (MAP) Pulse Ox O2 O2 Flow FiO2 Time Delivery Rate 04/29/19 49 08:00 04/29/19 97.6 18 132/59 98 Room Air 07:30 (83) 04/27/19 3.0 20:00 04/27/19 27 05:10 Intake and Output 04/28/19 04/28/19 04/29/19 1515:00 23:00 07:00 IntakeIntake Total 470 ml 1430 ml 500 ml OutputOutput Total 650 ml 2000 ml 700 ml BalanceBalance -180 ml -570 ml -200 ml Results Results 24hrs Laboratory Tests Test 04/28/19 16:00 04/28/19 19:08 04/28/19 21:18 04/29/19 01:08 Hepatitis B Surface NEGATIVE Antigen Hepatitis C Antibody NEGATIVE Bedside Glucose 329 H 274 H 204 Test 04/29/19 05:23 04/29/19 05:24 04/29/19 08:29 Bedside Glucose 120 171 White Blood Count 8.3 Red Blood Count 4.13 L Hemoglobin 13.4 L Hematocrit 39.5 L Mean Corpuscular Volume 95.6 Mean Corpuscular 32.4 Hemoglobin Mean Corpuscular 33.9 Hemoglobin Concent Red Cell Distribution 13.0 Width Platelet Count 22 *L Mean Platelet Volume 13.2 H Immature Granulocytes % 0.700 H Neutrophils % 91.9 H Lymphocytes % 3.9 L Monocytes % 3.4 Eosinophils % 0.0 Basophils % 0.1 Nucleated Red Blood 0.0 Cells % Immature Granulocytes # 0.060 H Neutrophils # 7.6 H Lymphocytes # 0.3 L Monocytes # 0.3 Eosinophils # 0.0 Basophils # 0.0 Nucleated Red Blood 0.0 Cells # Sodium Level 133 L Potassium Level 4.4 Chloride Level 103 Carbon Dioxide Level 26 Anion Gap 4 L Blood Urea Nitrogen 50 H Creatinine 0.83 Est Glomerular Filtrat > 60 Rate mL/min Glucose Level 131 # Calcium Level 8.4 Medications Medication Current Medications Folic Acid (Folic Acid) 1 mg DAILY NGT Last administered on 04/29/19 08:21; Admin Dose 1 MG; Start 04/25/19 at 16:00 Furosemide (Lasix) 80 mg DAILY NGT Last administered on 04/29/19 08:21; Admin Dose 80 MG; Start 04/26/19 at 09:00 Lactulose (Enulose) 40 gm TID NGT Last administered on 04/29/19 08:21; Admin Dose 40 GM; Start 04/25/19 at 21:00 Levetiracetam (Keppra) 1,000 mg BID NGT Last administered on 04/29/19 08:21; Admin Dose 1,000 MG; Start 04/25/19 at 21:00 Spironolactone (Aldactone) 100 mg DAILY NGT Last administered on 04/29/19 08:21; Admin Dose 100 MG; Start 04/26/19 at 09:00 IV Flush (NS 3 ml) 3 ml PER PROTOCOL IV ; Start 04/25/19 at 16:00 Ondansetron HCl (Zofran Inj) 4 mg Q6H PRN IV NAUSEA/VOMITING Last administered on 04/26/19at 10:42; Admin Dose 4 MG; Start 04/25/19 at 16:00 Miscellaneous Information 1 ea NOTE XX ; Start 04/25/19 at 22:00 Glucose (Glutose) 15 gm Q15M PRN PO DECREASED GLUCOSE; Start 04/25/19 at 22:00 Glucose (Glutose) 22.5 gm Q15M PRN PO DECREASED GLUCOSE; Start 04/25/19 at 22:00 Dextrose (D50w Syringe) 25 ml Q15M PRN IV DECREASED GLUCOSE; Start 04/25/19 at 22:00 Dextrose (D50w Syringe) 50 ml Q15M PRN IV DECREASED GLUCOSE; Start 04/25/19 at 22:00 Glucagon (Glucagen) 1 mg Q15M PRN IM DECREASED GLUCOSE; Start 04/25/19 at 22:00 Glucose (Glutose) 15 gm Q15M PRN BUCCAL DECREASED GLUCOSE; Start 04/25/19 at 22:00 Rifaximin (Xifaxan) 550 mg BID NGT Last administered on 04/29/19 08:21; Admin Dose 550 MG; Start 04/26/19 at 21:00 Insulin Aspart (Novolog Insulin Pen) NOVOLOG *MILD* ALGORI... Q4 SC Last administered on 04/29/19 01:21; Admin Dose 2 UNIT; Start 04/26/19 at 21:00 Insulin Glargine (Lantus) 16 units DAILY@2000 SC Last administered on 04/28/19at 21:24; Admin Dose 16 UNITS; Start 04/27/19 at 20:00 Famotidine (Pepcid Iv) 20 mg Q12 IV Last administered on 04/29/19at 08:20; Admin Dose 20 MG; Start 04/27/19 at 21:00 Haloperidol (Haldol) 2 mg Q4 PRN IM AGITATION; Start 04/28/19 at 06:30 Cefepime HCl 50 ml @ 100 mls/hr Q12 IVPB Last administered on 04/29/19 08:20; Admin Dose 100 MLS/HR; Start 04/28/19 at 09:00 Dexamethasone (Decadron) 4 mg Q6 IV Last administered on 04/29/19at 05:26; Admin Dose 4 MG; Start 04/28/19 at 18:00 Miscellaneous Information (*Order Clarification Bulletin) MEDICATION REQUIRES CLARIFICATI... Q8H XX ; Start 04/29/19 at 01:30 MALINA LOPES Apr 29, 2019 11:06
--- NOTE | 2019-04-29 13:04 | CONS ---
Assessment/Plan Assessment/Plan Assessment/Plan (Recall) 64 yo M with hx of L frontal meningioma, recent onset seizures and other comorbidities who presents for evaluation of ams. He is noted to be protractedly encephalopathic... for which neurology is co nsulted. The clinical picture is most consistent with an acute toxic encephalopathy in the context of psychotropic medication overuse. CTH is without acute intracranial pathology, though notable for the L frontal meningioma with surrounding vasogenic edema. MRI brain from 03/2019 was also notable for the same. P: Ok to defer repeat MRI brain for now Hold seroquel in the short-term Limit other sedating medications where possible Cont medical management per primary Will follow clinically, to recommend neurologic studies, as necessary Consultation Date/Type/Reason Admit Date/Time Apr 25, 2019 at 13:58 Type of Consult Neurology Reason for Consultation ams Requesting Provider: MARCIAL BEY M.D. Date/Time of Note DATE: 04/29/19 TIME: 13:04 24 HR Interval Summary Free Text/Dictation Continues acute care. Exam/Review of Systems Exam Vitals Vital Signs Date Temp Pulse Resp B/P (MAP) Pulse Ox O2 O2 Flow FiO2 Time Delivery Rate 04/29/19 97.8 53 18 133/59 97 Room Air 12:23 (83) 04/27/19 3.0 20:00 04/27/19 27 05:10 Intake and Output 04/28/19 04/28/19 04/29/19 1515:00 23:00 07:00 IntakeIntake Total 470 ml 1430 ml 500 ml OutputOutput Total 650 ml 2000 ml 700 ml BalanceBalance -180 ml -570 ml -200 ml Exam PE: Gen Appearance: No Apparent Distress HEENT: Normocephalic Cardiovascular: Regular rate Lungs: Clear bilaterally Abdomen: Soft Extremities: Dry NE: The patient was alert and grossly oriented. Language was normal. Fund of knowledge was normal. Pupils were equal and reactive to light. There was no afferent pupillary defect. Visual cherry were normal. Funduscopic examination was limited. Extra-ocular movements were full. Ptosis was absent. There was no nystagmus. Facial sensation was normal. Face was symmetric with normal strength. Hearing was intact. Palate movements were normal. Neck strength was normal. There was normal tongue bulk and speed of movement. Tone was normal. Muscle bulk was normal. I did not see fasciculations. Arms and legs were strong. Vibration sensation was normal. Temperature and pinprick sensation was normal. Rapid alternating movements were normal. There was no dysmetria. There was no intention tremor. Gait was deferred due to bedrest. Arm and leg reflexes were 2+ and symmetric. Cotton's sign was absent. Plantar responses were flexor. Results Result Diagram: 04/29/19 0524 04/29/19 0524 Results 24hrs Laboratory Tests Test 04/28/19 16:00 04/28/19 19:08 04/28/19 21:18 04/29/19 01:08 Hepatitis B Surface NEGATIVE Antigen Hepatitis C Antibody NEGATIVE Bedside Glucose 329 H 274 H 204 Test 04/29/19 05:23 04/29/19 05:24 04/29/19 08:29 04/29/19 11:57 Bedside Glucose 120 171 306 H White Blood Count 8.3 Red Blood Count 4.13 L Hemoglobin 13.4 L Hematocrit 39.5 L Mean Corpuscular Volume 95.6 Mean Corpuscular 32.4 Hemoglobin Mean Corpuscular 33.9 Hemoglobin Concent Red Cell Distribution 13.0 Width Platelet Count 22 *L Mean Platelet Volume 13.2 H Immature Granulocytes % 0.700 H Neutrophils % 91.9 H Lymphocytes % 3.9 L Monocytes % 3.4 Eosinophils % 0.0 Basophils % 0.1 Nucleated Red Blood 0.0 Cells % Immature Granulocytes # 0.060 H Neutrophils # 7.6 H Lymphocytes # 0.3 L Monocytes # 0.3 Eosinophils # 0.0 Basophils # 0.0 Nucleated Red Blood 0.0 Cells # Sodium Level 133 L Potassium Level 4.4 Chloride Level 103 Carbon Dioxide Level 26 Anion Gap 4 L Blood Urea Nitrogen 50 H Creatinine 0.83 Est Glomerular Filtrat > 60 Rate mL/min Glucose Level 131 # Calcium Level 8.4 Medications Medication Current Medications Folic Acid (Folic Acid) 1 mg DAILY NGT Last administered on 04/29/19at 08:21; Admin Dose 1 MG; Start 04/25/19 at 16:00 Furosemide (Lasix) 80 mg DAILY NGT Last administered on 04/29/19 08:21; Admin Dose 80 MG; Start 04/26/19 at 09:00 Lactulose (Enulose) 40 gm TID NGT Last administered on 04/29/19at 12:22; Admin Dose 40 GM; Start 04/25/19 at 21:00 Levetiracetam (Keppra) 1,000 mg BID NGT Last administered on 04/29/19 08:21; Admin Dose 1,000 MG; Start 04/25/19 at 21:00 Spironolactone (Aldactone) 100 mg DAILY NGT Last administered on 04/29/19at 08:21; Admin Dose 100 MG; Start 04/26/19 at 09:00 IV Flush (NS 3 ml) 3 ml PER PROTOCOL IV ; Start 04/25/19 at 16:00 Ondansetron HCl (Zofran Inj) 4 mg Q6H PRN IV NAUSEA/VOMITING Last administered on 04/26/19at 10:42; Admin Dose 4 MG; Start 04/25/19 at 16:00 Miscellaneous Information 1 ea NOTE XX ; Start 04/25/19 at 22:00 Glucose (Glutose) 15 gm Q15M PRN PO DECREASED GLUCOSE; Start 04/25/19 at 22:00 Glucose (Glutose) 22.5 gm Q15M PRN PO DECREASED GLUCOSE; Start 04/25/19 at 22:00 Dextrose (D50w Syringe) 25 ml Q15M PRN IV DECREASED GLUCOSE; Start 04/25/19 at 22:00 Dextrose (D50w Syringe) 50 ml Q15M PRN IV DECREASED GLUCOSE; Start 04/25/19 at 22:00 Glucagon (Glucagen) 1 mg Q15M PRN IM DECREASED GLUCOSE; Start 04/25/19 at 22:00 Glucose (Glutose) 15 gm Q15M PRN BUCCAL DECREASED GLUCOSE; Start 04/25/19 at 22:00 Rifaximin (Xifaxan) 550 mg BID NGT Last administered on 04/29/19 08:21; Admin Dose 550 MG; Start 04/26/19 at 21:00 Insulin Aspart (Novolog Insulin Pen) NOVOLOG *MILD* ALGORI... Q4 SC Last administered on 04/29/19 01:21; Admin Dose 2 UNIT; Start 04/26/19 at 21:00 Insulin Glargine (Lantus) 16 units DAILY@2000 SC Last administered on 04/28/19at 21:24; Admin Dose 16 UNITS; Start 04/27/19 at 20:00 Famotidine (Pepcid Iv) 20 mg Q12 IV Last administered on 04/29/19at 08:20; Admin Dose 20 MG; Start 04/27/19 at 21:00 Haloperidol (Haldol) 2 mg Q4 PRN IM AGITATION; Start 04/28/19 at 06:30 Cefepime HCl 50 ml @ 100 mls/hr Q12 IVPB Last administered on 04/29/19at 08:20; Admin Dose 100 MLS/HR; Start 04/28/19 at 09:00 Dexamethasone (Decadron) 4 mg Q6 IV Last administered on 04/29/19at 12:01; Admin Dose 4 MG; Start 04/28/19 at 18:00 Miscellaneous Information (*Order Clarification Bulletin) MEDICATION REQUIRES CLARIFICATI... Q8H XX ; Start 04/29/19 at 01:30 SONY CARREON NP Apr 29, 2019 13:04
--- NOTE | 2019-04-29 23:33 | DS ---
DATE OF ADMISSION: 04/25/2019 DATE OF DISCHARGE: 04/29/2019 DISCHARGE DIAGNOSES: 1. A 64-year-old male with multifactorial altered mental status, resolved. 2. Hepatic encephalopathy/hyperammonemia, resolved. 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 4. History of recent seizure. 5. Hypertension. 6. Cirrhosis of the liver. 7. Thrombocytopenia. 8. Type 2 diabetes mellitus. 9. Poor prognosis. HOSPITAL COURSE: A 64-year-old male with multiple other medical problems including recently diagnose d olfactory meningioma and seizure disorder who presented to Emergency Room with altered level of con sciousness. The patient was diagnosed with hepatic encephalopathy. Initial ammonia level was as hig h as 154. The patient was placed on lactulose and rifaximin. The hepatic encephalopathy resolved an d his mentation improved significantly. I consulted Dr. Canela and Dr. Caceres. There is no need for surgical intervention at this time. The p atient has severe underlying liver cirrhosis with associated thrombocytopenia. Platelet count was as low as 22,000. I also asked Dr. Knott to evaluated him and establish a code status. I was not a ble to reach any family members. The patient is in a fairly stable condition for discharge to a senior living facility. On the day of discharge, he was alert and oriented to place and person. He had significant ecchymosis involving bilateral upper extremities mainly due to thrombocytopenia. I continued the Decadron since the vaso genic edema may be contributing to his altered mental status. PLAN: Discharge to senior living facility. MEDICATIONS ON DISCHARGE: 1. Decadron 4 mg q.8h. 2. Folic acid 1 mg daily. 3. Lasix 40 mg daily. 4. Lactulose 20 grams t.i.d. 5. Keppra 1000 mg b.i.d. 6. Protonix 40 mg daily. 7. Janumet one tablet daily. 8. Spironolactone 25 mg daily. 9. Tramadol 50 mg q.8h p.r.n. 10. Rifaximin 550 mg b.i.d. Dictated By: PHUONG MCCALL/RC Conf#: [id number] DID#: [id number] CC: ____; LOPEZ CACERES; MARCIAL BEY MD; DANNI ACNELA MD;*[facility]*
== END 2019-04-29 17:00 | DRG 441 ==
LOC: E/R 11:43 → TEL 13:58 → EDBEDREQSVC 15:42 → ICU 21:18 → 6WM 04-27 17:09
PROVIDERS: ADMIT Internal Medicine; ATTEND Internal Medicine
DX: K72.90 Hepatic failure, unspecified without coma (principal); G93.6 Cerebral edema; R18.8 Other ascites; E87.2 Acidosis; D32.0 Benign neoplasm of cerebral meninges; K74.69 Other cirrhosis of liver; D69.6 Thrombocytopenia, unspecified; I10 Essential (primary) hypertension; E11.65 Type 2 diabetes mellitus with hyperglycemia; G40.909 Epilepsy, unspecified, not intractable, without status epilepticus
CPT/HCPCS: 36600; 70450; 71045; 73100; 76705; 80048; 80053; 80307; 81001; 82140; 82550; 82553; 82728; 82803; 82962; 83036; 83605; 83735; 84443; 84484; 85025; 85610; 86038; 86255; 86803; 87081; 87340; 92610; 93005; 96372; 96374; J0692; J0696; J1100; J1630; J1815; J2060; J2405; J2543; J3480; J7030

== ENCOUNTER 2019-05-05 20:15 | Inpatient (IN) | payer OTHER ==
[~2019-05-05] VITALS: Ht 172.7 cm; Wt 80.0 kg
[~2019-05-05 20:15] MED LIST changes: +RIFA550T4 NGT
--- NOTE | 2019-05-05 20:24 | ERD ---
ER Documentation Chief Complaint Chief Complaint ALOC HPI The patient is a 64-year-old male, presenting to the ER because of acute altered level consciousness today, worse for the last 2 hours. He is unable to provide any history, the history is obtained from the medical record and EMS Past medical history: Cirrhosis, diabetes mellitus, epilepsy, hypertension, thrombocytopenia, frontal hemangioma Past surgical history/social history/review of system: Unable to obtain due to his condition ROS All systems reviewed and are negative except as per history of present illness. Medications Home Meds Active Scripts Rifaximin* (Xifaxan*) 550 Mg Tablet, 550 MG NGT BID for 30 Days, TAB Prov:PHUONG GARCIA MD 04/29/19 Levetiracetam* (Keppra*) 1,000 Mg Tablet, 1000 MG PO BID for 30 Days, TAB 3 Refills Prov:PHUONG GARCIA MD 04/12/19 Pantoprazole* (Protonix*) 40 Mg Tablet.dr, 40 MG PO DAILY for 30 Days, TAB Prov:PHUONG GARCIA MD 04/12/19 Dexamethasone* (Dexamethasone*) 4 Mg Tablet, 4 MG PO Q8 for 15 Days, TAB 4 mg every 8 hours x3 days then every 12 hours x3 days then 2 mg every 8 hours x3 days then 2 mg every 12 hours x3 days then 2 mg daily x3 days. Prov:PHUONG GARCIA MD 04/12/19 Lactulose* (Lactulose*) 20 Gm/30 Ml Solution, 20 GM PO TID for 30 Days Prov:PHUONG GARCIA MD 04/12/19 Reported Medications Furosemide* (Furosemide*) 40 Mg Tablet, 80 MG ORAL DAILY 04/11/19 Tramadol HCl (Tramadol HCl) 50 Mg Tablet, 50 MG PO Q8H PRN for PAIN LEVEL 4-7, #120 TAB 04/11/19 Sitagliptin Phos/Metformin HCl (Janumet 50-1,000 mg Tablet) 1 Each Tablet, 1 TAB ORAL DAILY 04/11/19 Spironolactone* (Spironolactone*) 100 Mg Tablet, 200 TAB ORAL DAILY 04/11/19 Folic Acid* (Folic Acid*) 1 Mg Tablet, 1 TAB ORAL DAILY 04/11/19 Allergies Allergies: Coded Allergies: No Known Allergy (Unverified , 04/11/19) PMhx/Soc Hx Neurological Disorder: Yes Hx Miscellaneous Medical Probl: Yes (DM2, SEIZURE) Physical Exam Vitals Vital Signs Date Temp Pulse Resp B/P (MAP) Pulse Ox O2 O2 Flow FiO2 Time Delivery Rate 05/05/19 97.0 69 18 111/61 97 20:24 (78) Physical Exam Const: No acute distress.Jaundice Head: Atraumatic. Eyes: Normal Conjunctiva. ENT: Normal External Ears, Nose and Mouth. Neck: Full range of motion. No meningismus. Resp: Clear to auscultation bilaterally. Cardio: Regular rate and rhythm. Abd: Soft, non distended, normal bowel sounds, non tender. Skin: No petechiae or rashes. Ecchymosis Back: No midline or flank tenderness. Ext: No cyanosis, or edema. Neur: Awake. Limited exam due to his condition Psych: Unable to obtain due to his condition Result Diagram: 05/05/19203605/05/192104 Results 24 hrs Laboratory Tests Test 05/05/19 20:37 05/05/19 21:02 05/05/19 21:05 White Blood Count 11.3 10^3/ul Red Blood Count 4.74 10^6/ul Hemoglobin 15.3 g/dl Hematocrit 44.8 % Mean Corpuscular Volume 94.5 fl Mean Corpuscular Hemoglobin 32.3 pg Mean Corpuscular 34.2 g/dl Hemoglobin Concent Red Cell Distribution Width 14.1 % Platelet Count 57 10^3/UL Mean Platelet Volume 12.0 fl Immature Granulocytes % 1.400 % Neutrophils % % Segmented Neutrophils % (Manual) 79 % Band Neutrophils % (Manual) 1 % Lymphocytes % % Lymphocytes % (Manual) 9 % Reactive Lymphocytes % (Manual) 1 % Monocytes % % Monocytes % (Manual) 9 % Eosinophils % % Basophils % % Promyelocytes % (Manual) 1 % Nucleated Red Blood Cells % 0.0 /100WBC Immature Granulocytes # 0.160 10^3/ul Neutrophils # 10^3/ul Neutrophils # (Manual) 8.9 10^3/ul Band Neutrophils # 0.1 10^3/ul Lymphocytes (Manual) 1.0 10^3/ul Lymphocytes # 10^3/ul Reactive Lymphocytes # 0.1 10^3/ul Monocytes # 10^3/ul Monocytes # (Manual) 1.0 10^3/ul Eosinophils # 10^3/ul Basophils # 10^3/ul Promyelocytes # 0.1 10^3/ul Nucleated Red Blood Cells # 10^3/ul Platelet Estimate DECREASED Poikilocytosis 2+ Urine Color YELLOW Urine Clarity CLEAR Urine pH 6.0 Urine Specific [place] 1.020 Urine Ketones NEGATIVE mg/dL Urine Nitrite NEGATIVE mg/dL Urine Bilirubin NEGATIVE mg/dL Urine Urobilinogen 2+ mg/dL Urine Leukocyte Esterase NEGATIVE Rajani/ul Urine Hemoglobin NEGATIVE mg/dL Urine Glucose NEGATIVE mg/dL Urine Total Protein NEGATIVE mg/dl Urine Opiates Screen NEGATIVE Urine Barbiturates NEGATIVE Urine Amphetamines Screen NEGATIVE Urine Benzodiazepines Screen NEGATIVE Urine Cocaine Screen NEGATIVE Urine Cannabinoids NEGATIVE POC Venous Lactate 2.2 mmol/L Sodium Level 132 mmol/L Potassium Level 4.8 mmol/L Chloride Level 100 mmol/L Carbon Dioxide Level 26 mmol/L Anion Gap 6 Blood Urea Nitrogen 31 mg/dl Creatinine 0.97 mg/dl Est Glomerular Filtrat > 60 mL/min Rate mL/min Glucose Level 163 mg/dl Calcium Level 8.9 mg/dl Magnesium Level 1.8 mg/dl Total Bilirubin 2.5 mg/dl Direct Bilirubin 0.00 mg/dl Indirect Bilirubin 2.5 mg/dl Aspartate Amino 69 IU/L Transf (AST/SGOT) Alanine 110 IU/L Aminotransferase (ALT/SGPT) Alkaline Phosphatase 97 IU/L Ammonia 105 umol/l Troponin I < 0.012 ng/ml Total Protein 6.8 g/dl Albumin 2.9 g/dl Globulin 3.90 g/dl Albumin/Globulin Ratio 0.74 Ethyl Alcohol Level < 10.0 mg/dl Current Medications Medications Dose Sig/Karel Start Time Status Last (Trade) Ordered Route PRN Stop Time Admin Dose Reason Admin Sodium 1,800 ml BOLUS OVER 2 05/05/19 DC 05/05/19 Chloride HOURS STAT 21:17 21:27 (NS) IV* 05/05/19 21:21 Ceftriaxone 50 ml @ ONCE ONCE 05/05/19 DC 05/05/19 Sodium 100 mls/hr IVPB 21:30 21:26 05/05/19 21:59 Lactulose 20 gm ONCE ONCE 05/05/19 (Enulose) PO 23:00 05/05/19 23:01 Procedures/MDM EKG: Read by emergency physician Rate/Rhythm: Normal Sinus Rhythm 64 beats/min QRS, ST, T-waves: No ST elevation, no T inversion, LVH, artifacts Impression: Abnormal EKG PT/PTT Pending [place] [address] Radiology Main Line: [phone] DIAGNOSTIC IMAGING REPORT Patient: SHARA CANO : 1955 Age: 64 Sex: M MR #: [id number] DOS: 05/05/192023 Ordering MD: CHELLE FRANKEL MD Location: E/R Room/Bed: PROCEDURE: CT Brain without contrast. CLINICAL INDICATION: Sepsis TECHNIQUE: A CT of the brain was performed on a multidetector CT scanner utilizing axial imaging from the skull base through the vertex without IV contrast. Multiplanar reformatted images were made. Images were reviewed on a PACS workstation. The CTDIvol is 39 mGy and the DLP is 699 mGycm. DICOM images are available. One or more of the following dose reduction techniques were utilized: 1.) Automated exposure control 2.) Adjustment of the mA +/- kV according to patient's size 3.) Use of iterative reconstruction technique. COMPARISON: Head CT April 28, 2019. MRI brain April 11, 2019 FINDINGS: Again noted is a solid extra-axial mass at the medial floor of the left anterior cranial fossa measuring approximately 3.7 x 3.0 x 2.6 cm. The mass extends across the midline. There is surrounding vasogenic edema. This is consistent with a meningioma. The appearance is not changed significantly in the interim. There is a 73 mm left right midline shift again seen without evidence of tra nstentorial herniation. There is mass effect with deformity of the frontal horn of the left lateral ventricle. No other intra-axial masses or regions of abnormal attenuation are present. There is no intracranial hemorrhage. There is normal aeration of the visualized paranasal sinuses. IMPRESSION: Left frontal meningioma with vasogenic edema and mass effect as above unchanged since recent prior studies. Mild mass effect. No hemorrhage. No evidence of herniation. .Manuel Fisher MD, MD Date Time Electronically viewed and signed by .Manuel Fisher MD, MD on 05/05/2019 22:41 .A/ CC: CHELLE FRANKEL MD [phone] [place] [address] Radiology Main Line: [phone] DIAGNOSTIC IMAGING REPORT Patient: SHARA CANO : 1955 Age: 64 Sex: M MR #: [id number] DOS: 05/05/192023 Ordering MD: CHELLE FRANKEL MD Location: E/R Room/Bed: PROCEDURE: XR Chest. TECHNIQUE: Single frontal radiograph. CLINICAL INDICATION: Possible Sepsis COMPARISON: DR CHEST 04/27/2019; JOE CHEST 12/27/2014; GENEVA CR CHEST 01/30/2014; GENEVA CR CHEST 01/12/2014. FINDINGS: Markedly low lung volumes with elevation of the right hemidiaphragm and right basilar atelectasis. Hemidiaphragms remain sharply defined. No evidence of focal consolidation, pneumothorax, or pleural effusion. Cardiomediastinal silhouette is within normal limits. No acute osseous abnormality identified within the visualized thorax. Overlying soft tissues are equally unremarkable. IMPRESSION: No evidence of acute cardiopulmonary process, allowing for low lung volumes and atelectasis, greater on the right. RPTAT: EE Physician Margarito Date Time Electronically viewed and signed by Physician Margarito on 05/05/2019 21:09 BP/ CC: CHELLE FRANKEL MD [id number] MEDICAL MAKING DECISION: The patient is a 64-year-old male, presenting with acute hepatic encephalopathy, acute severe sepsis, acute dehydration. He was treated with normal saline 30 mm/kg IV, Rocephin IV for acute severe sepsis, lactulose 20 g p.o. for acute hepatoencephalopathy The differential diagnoses considered include but are not limited to metabolic encephalopathy, hepatic encephalopathy, electrolyte imbalance, medical/dietary noncompliance MDM: Patient's infectious symptoms have not stabilized and the patient is at risk of rapid decompensation. The patient will be admitted for careful hydration, an tibiotic therapy, and infectious source control. SEVERE SEPSIS CRITERIA: Infectious source: unknown End organ damage indicated by: [Lactate > 2.0 mmol/L SEPSIS MANAGEMENT Time of recognition of severe sepsis: 9:20p. 3 HOUR BUNDLE Blood cultures x 2 before broad-spectrum antibiotics: [Yes] 30 ml/kg NS bolus [Completed] Initial lactate []2.2 Repeat lactate Pending SEPTIC SHOCK ASSESSMENT: [No] lactic acid > 4.0 [No] Persistent hypotension (SBP < 90 or 40 mmHg drop, MAP < 65) despite 30 mL/kg IV fluid bolus CRITICAL CARE Critical care time [35] minutes Emergent fluid management while maintaining close respiratory support. Provision of immediate and broad-spectrum antibiotic therapy. Simultaneous assessment for possible sources in order to direct targeted therapy. Consideration for invasive and chemical support to prevent cardiopulmonary collapse. Critical care time is independent of procedures performed. Departure Diagnosis: Primary Impression: Hepatic encephalopathy Additional Impressions: Severe sepsis Dehydration Thrombocytopenia Condition: Stable Comments I discussed the findings with the patient. I discussed the patient with Dr Garcia at 10:55p , who was made aware of the lab, the treatment, the patient condition. The patient is admitted to Tel Disclaimer: Inadvertent spelling and grammatical errors are likely due to EHR/dictation software use and do not reflect on the overall quality of patient care. Also, please note that the electronic time recorded on this note does not necessarily reflect the actual time of the patient encounter. CHELLE FRANKEL MD May 05, 2019 20:24
[2019-05-05] MEDS ORDERED: SODIUM CHLORIDE 0.9% 1L BAG IV* STA (21:17)
[2019-05-05] MEDS ORDERED: CEFTRIAXONE 1 GM/50 ML (PMX) 50 ML IVPB ONE (21:30)
[2019-05-05] MEDS: RIFAXIMIN 550 MG TAB PO SCH (23:00)
[2019-05-05] MEDS ORDERED: traMADol 50 MG TAB PO PRN (23:00)
[2019-05-05] MEDS ORDERED: LACTULOSE 30ML CUP PO ONE (23:00)
[2019-05-05] MEDS ORDERED: GLUCAGON 1 MG INJ IM PRN (23:30)
[2019-05-05] MEDS ORDERED: GLUCOSE GEL 15 GRAM TUBE PO PRN ×2 (23:30)
[2019-05-05] MEDS ORDERED: ONDANSETRON 4 MG INJ IV PRN (23:30)
[2019-05-05] MEDS ORDERED: DEXTROSE 50% 50 ML SYRINGE IV PRN ×2 (23:30)
[2019-05-05] MEDS ORDERED: GLUCOSE GEL 15 GRAM TUBE BUCCAL PRN (23:30)
[2019-05-06] VITALS (15 sets, daily range): BP systolic 103–140; BP diastolic 56–73; PULSE 53–70; RESP 18–20; Ht 172.7 cm; Wt 80.0 kg
[2019-05-06] MEDS ORDERED: LACTULOSE 30ML CUP NGT ONE
[2019-05-06] MEDS: SOD CHLORIDE 0.9% 1,000 ML IV SCH ×3 (02:14→16:44)
[2019-05-06] MEDS ORDERED: HALOPERIDOL 5 MG INJ IV PRN (07:00)
[2019-05-06] MEDS ORDERED: INSULIN ASPART [NOVOLOG] 3 ML PEN SC SCH (07:55)
[2019-05-06] MEDS: LEVETIRACETAM 500 MG TAB PO SCH ×2 (08:34→20:17)
[2019-05-06] MEDS: RIFAXIMIN 550 MG TAB PO SCH ×2 (08:34→20:16)
[2019-05-06] MEDS: LACTULOSE 30ML CUP PO SCH ×3 (08:34→20:16)
[2019-05-06] MEDS: PANTOPRAZOLE (EC) 40 MG TAB PO SCH (08:34)
[2019-05-06] MEDS: INSULIN ASPART [NOVOLOG] 3 ML PEN SC SCH ×3 (11:27→23:17)
--- NOTE | 2019-05-06 14:02 | HP ---
Date/Time of Note Date/Time of Note DATE: 05/06/19 TIME: 14:01 Assessment/Plan VTE Prophylaxis Risk score (from [facility])>0 risk: 4 SCD applied (from [facility]): Yes Pharmacological prophylaxis: NA/contraindicated Pharm contraindication: bleeding Lines/Catheters IV [facility]ter Type (from [facility]): Peripheral IV Urinary Cath still in place: No Assessment/Plan Hospital Course Patient with extensive history of liver cirrhosis and thrombocytopenia with nonoperative meningioma and history of seizure disorder presents with hepatic encephalopathy. Patient is very noncompliant and agitated. Elevated lactic acid admission was noted. Doubt infectious processes. Patient was started on ceftriaxone and urine culture was obtained Admit to Med-Surg unit NG tube with lactulose 30 cc every 6 hours, check ammonia in a.m. Ceftriaxone IV, follow up with urine culture Rifaximin Continue antiepileptics via NG Neurosurgery consultation Dr Canela Palliative consultation Pantoprazole for GI prophylaxis SCDs for DVT prophylaxis, avoid heparin products or antiplatelets given thrombocytopenia Problems: (1) Hepatic encephalopathy Status: Acute (2) Agitation Status: Acute (3) Seizure disorder Status: Chronic (4) Cirrhosis Status: Chronic (5) Meningioma Status: Chronic (6) Thrombocytopenia Status: Chronic Result Diagram: 05/05/19203605/05/192104 Results 24hrs Laboratory Tests Test 05/05/19 20:37 05/05/19 21:02 05/05/19 21:05 05/05/19 22:38 White Blood Count 11.3 #H Red Blood Count 4.74 Hemoglobin 15.3 Hematocrit 44.8 Mean Corpuscular 94.5 Volume Mean Corpuscular 32.3 Hemoglobin Mean Corpuscular 34.2 Hemoglobin Concent Red Cell 14.1 Distribution Width Platelet Count 57 #L Mean Platelet Volume 12.0 H Immature 1.400 H Granulocytes % Neutrophils % Segmented 79 H Neutrophils % (Manual) Band Neutrophils % 1 (Manual) Lymphocytes % Lymphocytes % 9 L (Manual) Reactive Lymphocytes 1 H % (Manual) Monocytes % Monocytes % (Manual) 9 Eosinophils % Basophils % Promyelocytes % 1 H (Manual) Nucleated Red Blood 0.0 Cells % Immature 0.160 H Granulocytes # Neutrophils # Neutrophils # 8.9 H (Manual) Band Neutrophils # 0.1 Lymphocytes (Manual) 1.0 Lymphocytes # Reactive Lymphocytes 0.1 H # Monocytes # Monocytes # (Manual) 1.0 H Eosinophils # Basophils # Promyelocytes # 0.1 H Nucleated Red Blood Cells # Platelet Estimate DECREASED Poikilocytosis 2+ Urine Color YELLOW Urine Clarity CLEAR Urine pH 6.0 Urine Specific 1.020 [place] Urine Ketones NEGATIVE Urine Nitrite NEGATIVE Urine Bilirubin NEGATIVE Urine Urobilinogen 2+ H Urine Leukocyte NEGATIVE Esterase Urine Hemoglobin NEGATIVE Urine Glucose NEGATIVE Urine Total Protein NEGATIVE Urine Opiates Screen NEGATIVE Urine Barbiturates NEGATIVE Urine Amphetamines NEGATIVE Screen Urine NEGATIVE Benzodiazepines Screen Urine Cocaine Screen NEGATIVE Urine Cannabinoids NEGATIVE POC Venous Lactate 2.2 *H Sodium Level 132 L Potassium Level 4.8 Chloride Level 100 Carbon Dioxide Level 26 Anion Gap 6 Blood Urea Nitrogen 31 H Creatinine 0.97 Est Glomerular > 60 Filtrat Rate mL/min Glucose Level 163 Calcium Level 8.9 Magnesium Level 1.8 Total Bilirubin 2.5 H Direct Bilirubin 0.00 Indirect Bilirubin 2.5 H Aspartate Amino 69 H Transf (AST/SGOT) Alanine 110 H Aminotransferase (AL T/SGPT) Alkaline Phosphatase 97 Ammonia 105 #H Troponin I < 0.012 Total Protein 6.8 Albumin 2.9 L Globulin 3.90 H Albumin/Globulin 0.74 Ratio Ethyl Alcohol Level < 10.0 H Lactic Acid Level 3.1 *H Test 05/05/19 22:55 05/06/19 02:06 05/06/19 11:26 Prothrombin Time 16.4 H Prothrombin Time 1.3 Ratio INR International 1.31 Normalized Ratio Activated 28.0 Partial Thromboplast Time Lactic Acid Level 0.9 Bedside Glucose 119 HPI/ROS Admit Date/Time Admit Date/Time May 05, 2019 at 22:56 Hx of Present Illness 64 years old Nepalese male with history of liver cirrhosis, thrombocytopenia, nonoperative meningioma seizure disorder who presented with altered mental status and agitated behavior. Patient has had frequent admissions for the same reason. The last admission he was sent to a [facility] facility. Patient is Nepalese speaking. He is not cooperative with interview and the history is solely based on reviewing the chart. ED work-up was significant for elevated ammonia level at 105. CT of the head without contrast showed Left frontal meningioma with vasogenic edema and mass effect unchanged since recent prior studies. Mild mass effect. No hemorrhage. No evidence of herniation. Lactic acid was mildly elevated which was normalized with hydration. ROS Patient not able to provide detailed review of system because of encephalopathy and poor cooperation PMH/Family/Social Past Medical History Medications Current Medications Lactulose (Enulose) 20 gm TID PO Last administered on 05/06/19at 13:07; Admin Dose 20 GM; Start 05/06/19 at 09:00 Levetiracetam (Keppra) 1,000 mg BID PO Last administered on 05/06/19at 08:34; Admin Dose 1,000 MG; Start 05/06/19 at 09:00 Pantoprazole (Protonix Tab) 40 mg DAILY PO Last administered on 05/06/19at 08: 34; Admin Dose 40 MG; Start 05/06/19 at 09:00 Rifaximin (Xifaxan) 550 mg BID PO Last administered on 05/06/19at 08:34; Admin Dose 550 MG; Start 05/05/19 at 23:00 Tramadol HCl (Ultram) 50 mg Q8H PRN PO PAIN LEVEL 4-7; Start 05/05/19 at 23:00 Sodium Chloride 1,000 ml @ 70 mls/hr [id number] IV Last administered on 05/06/19at 02:14; Admin Dose 70 MLS/HR; Start 05/05/19 at 23:30 Ondansetron HCl (Zofran Inj) 4 mg Q4H PRN IV nausea; Start 05/05/19 at 23:30 Miscellaneous Information 1 ea NOTE XX ; Start 05/05/19 at 23:30 Glucose (Glutose) 15 gm Q15M PRN PO DECREASED GLUCOSE; Start 05/05/19 at 23:30 Glucose (Glutose) 22.5 gm Q15M PRN PO DECREASED GLUCOSE; Start 05/05/19 at 23:30 Dextrose (D50w Syringe) 25 ml Q15M PRN IV DECREASED GLUCOSE; Start 05/05/19 at 23:30 Dextrose (D50w Syringe) 50 ml Q15M PRN IV DECREASED GLUCOSE; Start 05/05/19 at 23:30 Glucagon (Glucagen) 1 mg Q15M PRN IM DECREASED GLUCOSE; Start 05/05/19 at 23:30 Glucose (Glutose) 15 gm Q15M PRN BUCCAL DECREASED GLUCOSE; Start 05/05/19 at 23:30 Haloperidol (Haldol) 2 mg Q4 PRN IV AGITATION/ANXIETY; Start 05/06/19 at 07:00 Insulin Aspart (Novolog Insulin Pen) NOVOLOG *MODERATE* ALGORI... Q6 SC ; Start 05/06/19 at 12:00 Coded Allergies: No Known Allergy (Unverified , 05/06/19) Family History Significant Family History: no pertinent family hx Social History Smoking Status: Unknown if ever smoked Exam/Review of Systems Vital Signs Vitals Vital Signs Date Temp Pulse Resp B/P (MAP) Pulse Ox O2 O2 Flow FiO2 Time Delivery Rate 05/06/19 97.5 70 18 118/65 98 12:00 (82) 05/06/19 Room Air 06:00 Intake and Output 05/05/19 05/05/19 05/06/19 1515:00 23:00 07:00 IntakeIntake Total 350 ml BalanceBalance 350 ml Exam Exam Gen.: Laying in bed, restrained, not cooperative, Eyes icteric, conjunctiva normal, PERRLA, EOM intact HEENT: Normocephalic, atraumatic, hearing grossly intact, oral mucosa dry, no oral lesions Neck: Supple, no masses, trachea midline Cardiovascular: Regular rate and rhythm, no peripheral edema, no murmurs, no gallops, no rubs Respiratory: Clear to auscultation bilaterally, no use of accessory muscles of respiration, no wheezes, expiration not prolonged Extremities: No cyanosis, , no calf tenderness, pulses bilaterally palpable, extremities warm and perfused Abdomen: Hard, distended, nontender, bowel sounds present, no guarding, no rebound Neurological: Eyes closed, does not follow command, speech fluent, moves all extremities without gross deficit NARENDRA ZUNIGA MD May 06, 2019 14:02
[2019-05-07] VITALS (13 sets, daily range): BP systolic 102–135; BP diastolic 55–73; PULSE 65–98; RESP 16–19
[2019-05-07] MEDS: SOD CHLORIDE 0.9% 1,000 ML IV SCH ×4 (04:06→20:23)
[2019-05-07] MEDS: INSULIN ASPART [NOVOLOG] 3 ML PEN SC SCH ×3 (05:45→17:23)
[2019-05-07] MEDS: LACTULOSE 30ML CUP PO SCH ×3 (08:50→20:22)
[2019-05-07] MEDS: PANTOPRAZOLE (EC) 40 MG TAB PO SCH (08:50)
[2019-05-07] MEDS: LEVETIRACETAM 500 MG TAB PO SCH ×2 (08:50→20:22)
[2019-05-07] MEDS: RIFAXIMIN 550 MG TAB PO SCH ×2 (08:50→20:22)
--- NOTE | 2019-05-07 19:40 | PN ---
Date/Time of Note Date/Time of Note DATE: 05/07/19 TIME: 19:30 Assessment/Plan VTE Prophylaxis Risk score (from [facility] [place] risk: 3 SCD applied (from [facility] [place] Yes Pharmacological prophylaxis: NA/contraindicated Pharm contraindication: bleeding Lines/Catheters IV Catheter Type (from [facility]): Peripheral IV Urinary Cath still in place: No Assessment/Plan Hospital Course Patient with extensive history of liver cirrhosis and thrombocytopenia with nonoperative meningioma and history of seizure disorder presents with hepatic encephalopathy. Patient is very noncompliant and agitated. Elevated lactic acid admission was noted. Doubt infectious processes. Patient was started on ceftriaxone and urine culture was obtained. 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 Start diet Ceftriaxone IV, follow up with urine culture NGTD Rifaximin Continue antiepileptics Neurosurgery consultation SUDHA Canela Palliative consultation SUDHA Hernandez Pantoprazole for GI prophylaxis SCDs for DVT prophylaxis, avoid heparin products or antiplatelets given thrombocytopenia Result Diagram: 05/07/19 0636 05/07/19 0636 Results 24hrs Laboratory Tests Test 05/06/19 23:16 05/07/19 05:43 05/07/19 06:36 05/07/19 08:49 Bedside Glucose 121 117 104 White Blood Count 7.6 # Red Blood Count 4.20 L Hemoglobin 13.6 L Hematocrit 40.3 L Mean Corpuscular 96.0 Volume Mean Corpuscular 32.4 Hemoglobin Mean Corpuscular 33.7 Hemoglobin Concent Red Cell 14.2 Distribution Width Platelet Count 47 L Mean Platelet Volume 12.0 H Immature 0.900 H Granulocytes % Neutrophils % 81.7 H Lymphocytes % 7.4 L Monocytes % 8.8 Eosinophils % 1.1 Basophils % 0.1 Nucleated Red Blood 0.0 Cells % Immature 0.070 H Granulocytes # Neutrophils # 6.2 Lymphocytes # 0.6 L Monocytes # 0.7 Eosinophils # 0.1 Basophils # 0.0 Nucleated Red Blood 0.0 Cells # Sodium Level 135 Potassium Level 4.7 Chloride Level 109 Carbon Dioxide Level 21 Anion Gap 5 Blood Urea Nitrogen 26 H Creatinine 0.89 Est Glomerular > 60 Filtrat Rate mL/min Glucose Level 114 # Calcium Level 8.1 L Total Bilirubin 3.8 H Direct Bilirubin 0.00 Indirect Bilirubin 3.8 H Aspartate Amino 55 H Transf (AST/SGOT) Alanine 104 H Aminotransferase (AL T/SGPT) Alkaline Phosphatase 73 Ammonia < 9 #L Total Protein 5.7 #L Albumin 2.3 L Globulin 3.40 H Albumin/Globulin 0.67 Ratio Test 05/07/19 12:18 05/07/19 17:10 Bedside Glucose 117 117 Subjective 24 Hr Interval Summary Free Text/Dictation He is more awake today , he wants to eat , denies pain or discomfort Exam/Review of Systems Exam Vitals Vital Signs Date Temp Pulse Resp B/P (MAP) Pulse Ox O2 O2 Flow FiO2 Time Delivery Rate 05/07/19 78 16:01 05/07/19 98.9 18 102/55 98 Room Air 15:08 (71) Intake and Output 05/06/19 05/06/19 05/07/19 1414:59 22:59 06:59 IntakeIntake Total 0 ml 1100 ml OutputOutput Total 0 ml 700 ml BalanceBalance 0 ml 400 ml Exam Gen.: Laying in bed, alert , not cooperative and at times combative Eyes icteric, conjunctiva normal, PERRLA, EOM intact HEENT: Normocephalic, atraumatic, hearing grossly intact, oral mucosa dry, Neck: Supple, no masses, trachea midline Cardiovascular: Regular rate and rhythm, no peripheral edema, no murmurs, no gallops, no rubs Respiratory: Clear to auscultation bilaterally, no use of accessory muscles of respiration, no wheezes, expiration not prolonged Extremities: No cyanosis, , no calf tenderness, pulses bilaterally palpable, extremities warm and perfused Abdomen: Hard, distended, nontender, bowel sounds present, no guarding, no rebound Neurological: alert interactive , , speech fluent, moves all extremities without gross deficit Results Results 24hrs Laboratory Tests Test 05/06/19 23:16 05/07/19 05:43 05/07/19 06:36 05/07/19 08:49 Bedside Glucose 121 117 104 White Blood Count 7.6 # Red Blood Count 4.20 L Hemoglobin 13.6 L Hematocrit 40.3 L Mean Corpuscular 96.0 Volume Mean Corpuscular 32.4 Hemoglobin Mean Corpuscular 33.7 Hemoglobin Concent Red Cell 14.2 Distribution Width Platelet Count 47 L Mean Platelet Volume 12.0 H Immature 0.900 H Granulocytes % Neutrophils % 81.7 H Lymphocytes % 7.4 L Monocytes % 8.8 Eosinophils % 1.1 Basophils % 0.1 Nucleated Red Blood 0.0 Cells % Immature 0.070 H Granulocytes # Neutrophils # 6.2 Lymphocytes # 0.6 L Monocytes # 0.7 Eosinophils # 0.1 Basophils # 0.0 Nucleated Red Blood 0.0 Cells # Sodium Level 135 Potassium Level 4.7 Chloride Level 109 Carbon Dioxide Level 21 Anion Gap 5 Blood Urea Nitrogen 26 H Creatinine 0.89 Est Glomerular > 60 Filtrat Rate mL/min Glucose Level 114 # Calcium Level 8.1 L Total Bilirubin 3.8 H Direct Bilirubin 0.00 Indirect Bilirubin 3.8 H Aspartate Amino 55 H Transf (AST/SGOT) Alanine 104 H Aminotransferase (AL T/SGPT) Alkaline Phosphatase 73 Ammonia < 9 #L Total Protein 5.7 #L Albumin 2.3 L Globulin 3.40 H Albumin/Globulin 0.67 Ratio Test 05/07/19 12:18 05/07/19 17:10 Bedside Glucose 117 117 Medications Medication Current Medications Lactulose (Enulose) 20 gm TID PO Last administered on 05/07/19 12:19; Admin Dose 20 GM; Start 05/06/19 at 09:00 Levetiracetam (Keppra) 1,000 mg BID PO Last administered on 05/07/19 08:50; Admin Dose 1,000 MG; Start 05/06/19 at 09:00 Pantoprazole (Protonix Tab) 40 mg DAILY PO Last administered on 05/07/19 08:50; Admin Dose 40 MG; Start 05/06/19 at 09:00 Rifaximin (Xifaxan) 550 mg BID PO Last administered on 05/07/19 08:50; Admin Dose 550 MG; Start 05/05/19 at 23:00 Sodium Chloride 1,000 ml @ 70 mls/hr [id number] IV Last administered on 05/07/19 05:47; Admin Dose 70 MLS/HR; Start 05/05/19 at 23:30 Ondansetron HCl (Zofran Inj) 4 mg Q4H PRN IV nausea; Start 05/05/19 at 23:30 Miscellaneous Information 1 ea NOTE XX ; Start 05/05/19 at 23:30 Glucose (Glutose) 15 gm Q15M PRN PO DECREASED GLUCOSE; Start 05/05/19 at 23:30 Glucose (Glutose) 22.5 gm Q15M PRN PO DECREASED GLUCOSE; Start 05/05/19 at 23:30 Dextrose (D50w Syringe) 25 ml Q15M PRN IV DECREASED GLUCOSE; Start 05/05/19 at 23:30 Dextrose (D50w Syringe) 50 ml Q15M PRN IV DECREASED GLUCOSE; Start 05/05/19 at 23:30 Glucagon (Glucagen) 1 mg Q15M PRN IM DECREASED GLUCOSE; Start 05/05/19 at 23:30 Glucose (Glutose) 15 gm Q15M PRN BUCCAL DECREASED GLUCOSE; Start 05/05/19 at 23:30 Haloperidol (Haldol) 2 mg Q4 PRN IV AGITATION/ANXIETY; Start 05/06/19 at 07:00 Insulin Aspart (Novolog Insulin Pen) NOVOLOG *MODERATE* ALGORI... Q6 SC ; Start 05/06/19 at 12:00 NARENDRA ZUNIGA MD May 07, 2019 19:40
[2019-05-08] VITALS (8 sets, daily range): BP systolic 109–144; BP diastolic 62–76; PULSE 62–88; RESP 16–18
[2019-05-08] MEDS: INSULIN ASPART [NOVOLOG] 3 ML PEN SC SCH ×3 (01:00→12:22)
--- NOTE | 2019-05-08 08:29 | CONS ---
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 I have asked staff to call me if and w hen family members arrive. Consultation Date/Type/Reason Admit Date/Time May 05, 2019 at 22:56 Date/Time of Note DATE: 05/08/19 TIME: 08:25 Hx of Present Illness Neuropathic cirrhosis with secondary complications of thrombocytopenia elevated liver functions tests ental status changes secondary to high ammonia levels and encephalopathy. Other incidental finding of a nonoperative meningioma patient seen and examined by neurosurgery. Other medical problems include history of agitation secondary to encephalopathy, history of seizure disorder. Patient's overall prognosis during his hospitalization is good as at this time he is less encephalopathic and is able to eat with assistance. However overall prognosis for significant recovery and is combination of medical problems are very poor. Cannot participate Past Medical History Medical History: hepatitis Home Meds Active Scripts Rifaximin* (Xifaxan*) 550 Mg Tablet, 550 MG NGT BID for 30 Days, TAB Prov:PHUONG GARCIA MD 04/29/19 Levetiracetam* (Keppra*) 1,000 Mg Tablet, 1000 MG PO BID for 30 Days, TAB 3 Refills Prov:PHUONG GARCIA MD 04/12/19 Pantoprazole* (Protonix*) 40 Mg Tablet.dr, 40 MG PO DAILY for 30 Days, TAB Prov:PHUONG GARCIA MD 04/12/19 Dexamethasone* (Dexamethasone*) 4 Mg Tablet, 4 MG PO Q8 for 15 Days, TAB 4 mg every 8 hours x3 days then every 12 hours x3 days then 2 mg every 8 hours x3 days then 2 mg every 12 hours x3 days then 2 mg daily x3 days. Prov:PHUONG GARCIA MD 04/12/19 Lactulose* (Lactulose*) 20 Gm/30 Ml Solution, 20 GM PO TID for 30 Days Prov:PHUONG GARCIA MD 04/12/19 Reported Medications Furosemide* (Furosemide*) 40 Mg Tablet, 80 MG ORAL DAILY 04/11/19 Tramadol HCl (Tramadol HCl) 50 Mg Tablet, 50 MG PO Q8H PRN for PAIN LEVEL 4-7, #120 TAB 04/11/19 Sitagliptin Phos/Metformin HCl (Janumet 50-1,000 mg Tablet) 1 Each Tablet, 1 TAB ORAL DAILY 04/11/19 Spironolactone* (Spironolactone*) 100 Mg Tablet, 200 TAB ORAL DAILY 04/11/19 Folic Acid* (Folic Acid*) 1 Mg Tablet, 1 TAB ORAL DAILY 04/11/19 Medications Current Medications Lactulose (Enulose) 20 gm TID PO Last administered on 05/07/19 20:22; Admin Dose 20 GM; Start 05/06/19 at 09:00 Levetiracetam (Keppra) 1,000 mg BID PO Last administered on 05/07/19 20:22; Admin Dose 1,000 MG; Start 05/06/19 at 09:00 Pantoprazole (Protonix Tab) 40 mg DAILY PO Last administered on 05/07/19at 08:50 ; Admin Dose 40 MG; Start 05/06/19 at 09:00 Rifaximin (Xifaxan) 550 mg BID PO Last administered on 05/07/19 20:22; Admin Dose 550 MG; Start 05/05/19 at 23:00 Sodium Chloride 1,000 ml @ 70 mls/hr [id number] IV Last administered on 05/07/19at 20:23; Admin Dose 70 MLS/HR; Start 05/05/19 at 23:30 Ondansetron HCl (Zofran Inj) 4 mg Q4H PRN IV nausea; Start 05/05/19 at 23:30 Miscellaneous Information 1 ea NOTE XX ; Start 05/05/19 at 23:30 Glucose (Glutose) 15 gm Q15M PRN PO DECREASED GLUCOSE; Start 05/05/19 at 23:30 Glucose (Glutose) 22.5 gm Q15M PRN PO DECREASED GLUCOSE; Start 05/05/19 at 23:30 Dextrose (D50w Syringe) 25 ml Q15M PRN IV DECREASED GLUCOSE; Start 05/05/19 at 23:30 Dextrose (D50w Syringe) 50 ml Q15M PRN IV DECREASED GLUCOSE; Start 05/05/19 at 23:30 Glucagon (Glucagen) 1 mg Q15M PRN IM DECREASED GLUCOSE; Start 05/05/19 at 23:30 Glucose (Glutose) 15 gm Q15M PRN BUCCAL DECREASED GLUCOSE; Start 05/05/19 at 23:30 Haloperidol (Haldol) 2 mg Q4 PRN IV AGITATION/ANXIETY; Start 05/06/19 at 07:00 Insulin Aspart (Novolog Insulin Pen) NOVOLOG *MODERATE* ALGORI... Q6 SC Last administered on 05/08/19at 06:41; Admin Dose 2 UNIT; Start 05/06/19 at 12:00 Allergies: Coded Allergies: No Known Allergy (Unverified , 05/07/19) Past Surgical History Past Surgical Hx: other Family History Significant Family History: other (Unknown unknown patient is a non-historian) Social History Smoking Status: Unknown if ever smoked Exam/Review of Systems Exam Vitals Vital Signs Date Temp Pulse Resp B/P (MAP) Pulse Ox O2 O2 Flow FiO2 Time Delivery Rate 05/08/19 98.7 75 16 144/70 98 Room Air 07:28 (94) Intake and Output 05/07/19 05/07/19 05/08/19 1515:00 23:00 07:00 IntakeIntake Total 450 ml BalanceBalance 450 ml Constitutional: frail, other (Confused) Psych: confusion Eyes: nl conjunctiva, EOMI, nl lids, nl sclera, PERRL ENMT: nl external ears & nose, nl lips & teeth, nl nasal mucosa & septum Respiratory: clear to auscultation, normal air movement Cardiovascular: regular rate and rhythm, nl pulses Neurological: [employer] II-XII intact, confused, lethargic Results Result Diagram: 05/08/19 0720 05/07/19 0636 Results 24hrs Laboratory Tests Test 05/07/19 08:49 05/07/19 12:18 05/07/19 17:10 05/08/19 00:41 Bedside Glucose 104 117 117 251 H Test 05/08/19 06:31 05/08/19 07:20 Bedside Glucose 170 White Blood Count 7.8 Red Blood Count 3.85 L Hemoglobin 12.7 L Hematocrit 36.7 L Mean Corpuscular 95.3 Volume Mean Corpuscular 33.0 Hemoglobin Mean Corpuscular 34.6 Hemoglobin Concent Red Cell 14.1 Distribution Width Platelet Count 50 L Mean Platelet Volume 11.7 H Immature 1.000 H Granulocytes % Neutrophils % 75.0 Lymphocytes % 10.6 L Monocytes % 11.4 H Eosinophils % 1.7 Basophils % 0.3 Nucleated Red Blood 0.0 Cells % Immature 0.080 H Granulocytes # Neutrophils # 5.9 Lymphocytes # 0.8 Monocytes # 0.9 Eosinophils # 0.1 Basophils # 0.0 Nucleated Red Blood 0.0 Cells # Medications Medication Current Medications Lactulose (Enulose) 20 gm TID PO Last administered on 05/07/19 20:22; Admin Dose 20 GM; Start 05/06/19 at 09:00 Levetiracetam (Keppra) 1,000 mg BID PO Last administered on 05/07/19 20:22; Admin Dose 1,000 MG; Start 05/06/19 at 09:00 Pantoprazole (Protonix Tab) 40 mg DAILY PO Last administered on 05/07/19 08:50; Admin Dose 40 MG; Start 05/06/19 at 09:00 Rifaximin (Xifaxan) 550 mg BID PO Last administered on 05/07/19 20:22; Admin Dose 550 MG; Start 05/05/19 at 23:00 Sodium Chloride 1,000 ml @ 70 mls/hr [id number] IV Last administered on 05/07/19 20:23; Admin Dose 70 MLS/HR; Start 05/05/19 at 23:30 Ondansetron HCl (Zofran Inj) 4 mg Q4H PRN IV nausea; Start 05/05/19 at 23:30 Miscellaneous Information 1 ea NOTE XX ; Start 05/05/19 at 23:30 Glucose (Glutose) 15 gm Q15M PRN PO DECREASED GLUCOSE; Start 05/05/19 at 23:30 Glucose (Glutose) 22.5 gm Q15M PRN PO DECREASED GLUCOSE; Start 05/05/19 at 23:30 Dextrose (D50w Syringe) 25 ml Q15M PRN IV DECREASED GLUCOSE; Start 05/05/19 at 23:30 Dextrose (D50w Syringe) 50 ml Q15M PRN IV DECREASED GLUCOSE; Start 05/05/19 at 23:30 Glucagon (Glucagen) 1 mg Q15M PRN IM DECREASED GLUCOSE; Start 05/05/19 at 23:30 Glucose (Glutose) 15 gm Q15M PRN BUCCAL DECREASED GLUCOSE; Start 05/05/19 at 23:30 Haloperidol (Haldol) 2 mg Q4 PRN IV AGITATION/ANXIETY; Start 05/06/19 at 07:00 Insulin Aspart (Novolog Insulin Pen) NOVOLOG *MODERATE* ALGORI... Q6 SC Last administered on 05/08/19at 06:41; Admin Dose 2 UNIT; Start 05/06/19 at 12:00 RUFINO CAMPOS May 08, 2019 08:29
[2019-05-08] MEDS: RIFAXIMIN 550 MG TAB PO SCH (08:44)
[2019-05-08] MEDS: PANTOPRAZOLE (EC) 40 MG TAB PO SCH (08:45)
[2019-05-08] MEDS: LEVETIRACETAM 500 MG TAB PO SCH (08:45)
[2019-05-08] MEDS: LACTULOSE 30ML CUP PO SCH ×2 (08:45→12:18)
[2019-05-08] MEDS ORDERED: LACT20SO2 PO (16:57)
--- NOTE | 2019-05-08 16:58 | DS ---
Date/Time of Note Date/Time of Note DATE: 05/08/19 TIME: 16:58 Discharge Summary Admission/Discharge Info Admit Date/Time May 05, 2019 at 22:56 Discharge Date/Time Hx of Present Illness 64 years old Turkish male with history of liver cirrhosis, thrombocytopenia, nonoperative meningioma seizure disorder who presented with altered mental status and agitated behavior. Patient has had frequent admissions for the same reason. The last admission he was [facility] to a [facility] facility. Patient is Turkish speaking. He is not cooperative with interview and the history is solely based on reviewing the chart. ED work-up was significant for elevated ammonia level at 105. CT of the head without contrast showed Left frontal meningioma with vasogenic edema and mass effect unchanged since recent prior studies. Mild mass effect. No hemorrhage. No evidence of herniation. Lactic acid was mildly elevated which was normalized with hydration. Hospital Course Patient with extensive history of liver cirrhosis and thrombocytopenia with nonoperative meningioma and history of seizure disorder presents with hepatic encephalopathy. Patient is very noncompliant and agitated. Elevated lactic acid admission was noted. Doubt infectious processes. Patient was started on ceftriaxone and urine culture was obtained. 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 Start diet Ceftriaxone IV, follow up with urine culture NGTD Rifaximin Continue antiepileptics Neurosurgery consultation SUDHA Canela Palliative consultation SUDHA Hernandez Pantoprazole for GI prophylaxis SCDs for DVT prophylaxis, avoid heparin products or antiplatelets given thromb ocytopenia Home Meds Active Scripts Lactulose* (Lactulose*) 20 Gm/30 Ml Solution, 20 GM PO QID for 30 Days, #3600 ML 3 Refills Prov:NARENDRA ZUNIGA MD 05/08/19 Rifaximin* (Xifaxan*) 550 Mg Tablet, 550 MG NGT BID for 30 Days, TAB Prov:PHUONG GARCIA MD 04/29/19 Levetiracetam* (Keppra*) 1,000 Mg Tablet, 1000 MG PO BID for 30 Days, TAB 3 Refills Prov:PHUONG GARCIA MD 04/12/19 Pantoprazole* (Protonix*) 40 Mg Tablet.dr, 40 MG PO DAILY for 30 Days, TAB Prov:PHUONG GARCIA MD 04/12/19 Dexamethasone* (Dexamethasone*) 4 Mg Tablet, 4 MG PO Q8 for 15 Days, TAB 4 mg every 8 hours x3 days then every 12 hours x3 days then 2 mg every 8 hours x3 days then 2 mg every 12 hours x3 days then 2 mg daily x3 days. Prov:PHUONG GARCIA MD 04/12/19 Reported Medications Furosemide* (Furosemide*) 40 Mg Tablet, 80 MG ORAL DAILY 04/11/19 Tramadol HCl (Tramadol HCl) 50 Mg Tablet, 50 MG PO Q8H PRN for PAIN LEVEL 4-7, #120 TAB 04/11/19 Sitagliptin Phos/Metformin HCl (Janumet 50-1,000 mg Tablet) 1 Each Tablet, 1 TAB ORAL DAILY 04/11/19 Spironolactone* (Spironolactone*) 100 Mg Tablet, 200 TAB ORAL DAILY 04/11/19 Folic Acid* (Folic Acid*) 1 Mg Tablet, 1 TAB ORAL DAILY 04/11/19 Primary Care Provider Not On Staff Doctor Pending Labs Laboratory Tests Test 05/07/19 17:10 05/08/19 00:41 05/08/19 06:31 05/08/19 07:20 Bedside 117 251 170 Glucose mg/dL (70-220) mg/dL (70-220) mg/dL (70-220) White Blood 7.8 Count 10^3/ul (4.8-1 0.8) Red Blood 3.85 Count 10^6/ul (4.70- 6.10) Hemoglobin 12.7 g/dl (14.0-18. 0) Hematocrit 36.7 % (42.0-52.0) Mean 95.3 Corpuscular fl (82.0-101.0 Volume ) Mean 33.0 Corpuscular pg (29.0-33.0) Hemoglobin Mean 34.6 Corpuscular g/dl (32.0-37. Hemoglobin Conc 0) ent Red Cell 14.1 Distribution % (11.5-14.5) Width Platelet Count 50 10^3/UL (140-4 15) Mean Platelet 11.7 Volume fl (7.4-10.4) Immature 1.000 Granulocytes % % (0.001-0.429 ) Neutrophils % 75.0 % (39.0-77.0) Lymphocytes % 10.6 % (15.0-51.0) Monocytes % 11.4 % (0.0-11.0) Eosinophils % 1.7 % (0.0-7.0) Basophils % 0.3 % (0.0-2.0) Nucleated Red 0.0 Blood Cells % /100WBC (0.0-0 .0) Immature 0.080 Granulocytes # 10^3/ul (0.0-0 .031) Neutrophils # 5.9 10^3/ul (1.6-7 .5) Lymphocytes # 0.8 10^3/ul (0.8-2 .9) Monocytes # 0.9 10^3/ul (0.3-0 .9) Eosinophils # 0.1 10^3/ul (0.0-0 .5) Basophils # 0.0 10^3/ul (0.0-0 .1) Nucleated Red 0.0 Blood Cells # 10^3/ul (0.0-0 .0) Sodium Level 130 mmol/L (135-14 4) Potassium 4.1 Level mmol/L (3.5-5. 1) Chloride Level 107 mmol/L (97-110 ) Carbon Dioxide 20 Level mmol/L (21-31) Anion Gap 3 (5-13) Blood Urea 24 Nitrogen mg/dl (7-20) Creatinine 0.83 mg/dl (0.61-1. 24) Est Glomerular > 60 Filtrat mL/min (>60) Rate mL/min Glucose Level 146 mg/dl (70-220) Calcium Level 7.6 mg/dl (8.4-10. 2) Total 2.3 Bilirubin mg/dl (0.2-1.3 ) Direct 0.00 Bilirubin mg/dl (0.00-0. 20) Indirect 2.3 Bilirubin mg/dl (0-1.1) Aspartate Amino 57 Transf (AST/SGO IU/L (15-46) T) Alanine 87 Aminotransferas IU/L (13-69) e (ALT/SGPT) Alkaline 77 Phosphatase IU/L (42-121) Total Protein 5.7 g/dl (6.1-8.1) Albumin 2.3 g/dl (3.3-4.9) Globulin 3.40 g/dl (1.3-3.2) Albumin/Globuli 0.67 n Ratio Test 05/08/19 12:17 Bedside 163 Glucose mg/dL (70-220) NARENDRA ZUNIGA MD May 08, 2019 16:58
== END 2019-05-08 17:11 | disposition home or self-care (01) | DRG 443 ==
LOC: E/R 20:15 → TEL 22:56 → CANRESERV 23:25 → EDBEDREQ 23:51
PROVIDERS: ADMIT Internal Medicine; ATTEND Internal Medicine
DX: K72.90 Hepatic failure, unspecified without coma (principal); K74.69 Other cirrhosis of liver; D69.6 Thrombocytopenia, unspecified; G40.909 Epilepsy, unspecified, not intractable, without status epilepticus; R45.1 Restlessness and agitation
CPT/HCPCS: 70450; 71045; 80053; 80307; 81003; 82140; 82962; 83605; 83735; 84484; 85025; 85610; 85730; 87086; 93005; 96374; J0696; J1815; J7030